=== PATIENT | female | born 2000 | race African-American/Black ===

== ENCOUNTER 2025-04-06 13:53 | Emergency (ER) | payer OTHER, SELFPAY ==
[2025-04-06] VITALS (10 sets, daily range): BP systolic 115–136; BP diastolic 72–80; PULSE 60–81; RESP 12–24; TEMP 36.8; O2SAT 97–100
--- NOTE | ~2025-04-06 | XR_ITS ---
EXAMINATION: XR chest 1V portable DATE: 04/06/2025 14:26 INDICATION: Stroke with left facial droop and recent vaginal delivery. TECHNIQUE: frontal view of the chest was obtained. COMPARISON: None FINDINGS: The lungs are clear with no focal airspace opacities, pulmonary edema, pleural effusion or pneumothor ax. The cardiomediastinal silhouette is normal. Visualized bones and soft tissues are unremarkable. IMPRESSION: 1. Normal chest radiograph. Reviewed, dictated and finalized at location A. IMPRESSION: 1. Normal chest radiograph.
--- NOTE | ~2025-04-06 | CT_ITS ---
EXAMINATION: CT brain wo con DATE: 04/06/2025 13:58 INDICATION: Left-sided weakness and facial droop. TECHNIQUE: Computed tomography (CT) of the head was performed without intravenous contrast. Sagittal and coronal reconstructions were performed. The mA was adjusted according to patient size. Iterative reconstruction technique was employed. The dose-length product was 529.67 mGy-cm. COMPARISON: None FINDINGS: No acute intracranial hemorrhage, acute infarction or abnormal extra axial fluid collection. Ventricl es are normal and symmetric. No mass/mass effect. The orbits, paranasal sinuses and mastoid air cells are normal. IMPRESSION: 1. Normal brain. Reviewed, dictated and finalized at location A. IMPRESSION: 1. Normal brain.
--- NOTE | ~2025-04-06 | CT_ITS ---
EXAMINATION: CTA BRAIN/CAROTID DATE: 04/06/2025 15:03 INDICATION: Right-sided facial droop and weakness post recent vaginal delivery TECHNIQUE: Computed tomographic angiography (CTA) of the head and neck was performed with 100 mL Omni paque-350 intravenous contrast. Multiplanar reconstructions and maximum intensity projection 3D-recon structions of the carotid arteries and of the intracranial arteries were created by the technologist on a separate workstation. Automated exposure control and iterative reconstruction technique were emp loyed.The dose-length product was 978.33 mGy-cm. COMPARISON: Head CT dated 04/06/2025 FINDINGS: Carotid arteries: Visualized portion of the aortic arch and great vessels arising from the arch are normal in caliber w ith no evident atherosclerosis or dissection. There is no evident atherosclerotic plaque with 0% sten osis of the right and left carotid bulbs relative to normal distal artery lumen diameter (NASCET crit eria). Visualized upper lungs are clear. Cervical soft tissues are unremarkable. Cervical spine is un remarkable. Mucous retention cyst in the left maxillary sinus. Intracranial arteries Vertebral arteries are codominant. There is no hemodynamically significant stenosis in the vertebral, basilar and internal carotid arteries. Both A1 and P1 segments are patent. There is also a patent an terior communicating artery. There are no aneurysms identified. Cerebral arterial arborization appea rs symmetric. No cerebral venous thrombosis. No abnormally enhancing brain lesions. IMPRESSION: 1. No atherosclerotic plaque with 0% stenosis of the right and left carotid bulbs relative to normal distal artery lumen diameter (NASCET criteria). 2. Normal cerebral CT angiogram with no evidence stenosis, aneurysm or thrombosis. Reviewed, dictated and finalized at location A. IMPRESSION: 1. No atherosclerotic plaque with 0% stenosis of the right and left carotid bul bs relative to normal distal artery lumen diameter (NASCET criteria). 2. Normal cerebral CT angiogram with no evidence stenosis, aneurysm or thrombos is.
--- NOTE | 2025-04-06 13:50 | ECG_ITS ---
Test Date: 2025-04-06 14:11:25 Measurements Intervals [place] Rate: 76 P: 49 [place]: 154 QRS: 15 QRSD: 75 T: 18 QT: 356 QTc: 402 Interpretive Statements SINUS RHYTHM WITH MARKED SINUS ARRHYTHMIA Poor R wave progression No previous ECG available for comparison Electronically Signed On 04-07-2025 17:04:09 CDT by Marc Rodriguez M.D.
--- NOTE | 2025-04-06 14:00 | ED_ITS ---
HPI - Neuro Symptoms/Deficit General Chief Complaint: Suspected CVA Stated Complaint: r/o CVA History of Present Illness HPI Narrative: Pt presents with onset of left facial droop 50 minutes ago and numbness in face. Pt denies PORTER or weakness in arms or legs. Pt is diabetic and blood sugars have been ok. Pt had some blurred vison in left eye for about 10 minutes and that has resolved. Related Data Home Medications ?Medication ?Instructions ?Recorded ?Confirmed ?Last Taken ?Type vit no.133-ferrous 1 tablet PO DAILY 10/29/19 Unknown History fumarate 28 mg-folic acid 800 mcg tablet () Allergies Allergy/AdvReac Type Severity Reaction Status Date / Time metformin AdvReac Diarrhea Verified 04/06/25 14:18 Review of Systems 2 Review of Systems: All systems reviewed & are unremarkable except as noted in HPI and below PMFSH Past Medical History Medical History (Updated 04/06/25 @ 17:21 by Vero Smallwood III, DO) No significant past medical history Surgical History Surgical History No significant past surgical history Social History Social History Smoking status: Unknown if ever smoked Gender identity (if verbalized by the patient): Female Exam 2 Const: General: cooperative, healthy appearing and no acute distress O rientation/consciousness: patient oriented x3 Limitations: no limitations Eyes: General: appearance normal, both eyes and all related structures V isual Barboza: normal visual barboza by confrontation EOM: EOMs intact bilaterally Neck: Neck: normal visual inspection and full ROM Resp: Effort & Inspection: normal respiratory effort and able to speak in complete sentences Auscultation: clear to auscultation bilaterally Cardio: Rate: regular rate Rhythm: regular rhythm GI: Inspection: normal to inspection GI Palp: No abdominal tenderness Skin: General skin exam: normal color and no rashes or lesions noted Neuro: General: patient oriented x3, moves all extremities and no meningeal signs Speech: normal speech Motor exam (neuro): 5/5 motor strength present throughout, Pronator motor function not present, No tremor noted, No asterixis and Motor fasciculations not present Other: facial droop noted on left and forehead appears spared on brief exam prior to CT. Extrem: General: normal to inspection and full ROM Course Vital Signs Vital signs: Vital Signs Temperature 98.2 F 04/06/25 13:57 Pulse Rate 76 04/06/25 13:57 Respiratory Rate 20 04/06/25 13:57 Blood Pressure 136/72 04/06/25 13:57 Pulse Oximetry 100 04/06/25 13:57 Oxygen Delivery Room Air 04/06/25 13:57 Temperature 98.2 F 04/06/25 13:57 Pulse Rate 79 04/06/25 18:08 Respiratory Rate 18 04/06/25 18:08 Blood Pressure 115/75 04/06/25 18:08 Pulse Oximetry 100 04/06/25 18:08 Oxygen Delivery Room Air 04/06/25 14:11 MDM - Neuro Symptoms/Deficit MDM Narrative Medical decision making narrative: Pt had recent delivery last week and had some blurred vison around 1030 which resolved but then developed left facial numbness and droop sparing the forehead at 1300 that has persisted. Stroke work up initiated. CT brain neg for bleed. ekg ok. Discussed with Dr Strauss at [facility] at 1425. said is pretty mild but up to my clinical judgement on tpa. given mild nature of symptoms think the risk would be great and possiblility of other causes like dissection or venous sinus thrombosis or amniotic fluid embolism etc need to be ruled out. discussed with pt and agrees and does not want tpa at this point. will order cta of head and neck. cta unremarkable. discussed with Dr Ocampo and said not comfortable accepting this patient given her age and recent and delivery. discussed with Dr Jacobs again at [facility] and he will accept transfer. awaiting bed. Lab Data 04/06/25 14:02 04/06/25 14:02 Labs: Lab Results 04/06/25 04/06/25 Range/Units 14:01 14:02 WBC 9.1 (4.5-10.0) K/mm3 RBC 4.95 (4.2-5.4) M/mm3 Hgb 11.0 L (12.0-15.0) g/dL Hct 36.0 L (37.0-47.0) % MCV 72.7 L (80-100) fl MCH 22.2 L (26-34) pg MCHC 30.6 L (32-36) g/dl RDW 19.4 H (11.5-14.5) % Plt Count 377 H (150-375) k/mm3 MPV 9.4 (7.4-10.4) fl Immature Gran % (Auto) 1.5 H (0-0.5) % Neut % (Auto) 61.9 (45.5-73.1) % Lymph % (Auto) 25.0 (18.3-44.2) % [place] % (Auto) 7.1 (2.6-8.5) % Eos % (Auto) 4.1 (0-4.4) % Baso % (Auto) 0.4 (0.2-1.2) % Lymph # (Auto) 2.26 (0.9-3.2) K/mm3 Victoria # (Auto) 0.6 (0.1-0.6) K/mm3 Eos # (Auto) 0.4 H (0-0.3) K/mm3 Baso # (Auto) 0.0 (0.0-0.1) K/mm3 Abs Immat Gran (auto) 0.14 H (0.00-0.031) K/mm3 Absolute Neuts (auto) 5.6 (1.3-6.7) K/mm3 Absolute Nucleated RBC 0.020 H (0.0-0.012) K/mm3 Band Neutrophils % Not Reportable Nucleated RBC % 0.2 (0.0-0.2) % Platelet Estimate Increased (Adequate) Large Platelets Present Giant Platelets Present Hypochromasia 1+ Anisocytosis 1+ Schistocytes None seen PT 13.1 (11.1-14.7) Seconds INR 1.0 APTT 26.0 (22.3-36.8) Seconds Sodium 142 (137-145) mmol/L Potassium 3.7 (3.4-5.0) mmol/L Chloride 109 H (98-107) mmol/L Carbon Dioxide 23 (22-30) mmol/L Anion Gap 10 (4-12) mmol/L BUN 7 (7-17) mg/dL Creatinine 0.80 (0.7-1.0) mg/dL Estim Creat Clear Calc Not Reportable Estimated GFR > 60 (59 - ) Glucose 101 (65-110) mg/dL Calcium 8.8 (8.4-10.2) mg/dL Total Bilirubin 0.5 (0.2-1.3) mg/dL AST 29 (14-36) U/L ALT 21 (6-35) U/L Alkaline Phosphatase 135 H (38-126) U/L Troponin I < 0.012 (0.000-0.034) ng/mL Total Protein 7.0 (6.3-8.2) g/dL Albumin 3.7 (3.5-5.1) g/dL Discharge Plan Discharge Clinical Impression: Weakness on left side of face Patient Disposition: Acute Care Hospital Condition: Guarded Prognosis Patient Language: Slovak Prescriptions: No Action 28-800 mg-mcg Tablet 1 tablet PO DAILY amoxicillin 875 mg tablet 875 mg PO Q12H Qty: 20 0RF Follow-up/Referrals: PHYSICIAN,FIELD EXAMINER [Non-Staff] - Quality Stroke Scale Stroke Scale 1: 1a Level of consciousness: alert-0 1b Level of consciousness questions: answers both correctly-0 1c Level of consciousness commands: obeys both correctly-0 2 Best gaze: normal-0 3 Visual: no visual loss-0 4 Facial palsy: partial paralysis-2 5a Motor: left arm: no drift-0 5b Motor: right arm: no drift-0 6a Motor: left leg: no drift-0 6b Motor: right leg: no drift-0 7 Limb ataxia: absent-0 8 Sensory: pinprick less sharp-1 9 Best language: no aphasia-0 10 Dysarthria: normal-0 11 Extinction and inattention: no abnormality-0 Level:: 3
[2025-04-06 14:15] LABS: Basophils Percent Auto 0.4 % (0.2-1.2); Eosinophils Absolute Auto 0.4 K/mm3 (0-0.3); Eosinophils Percent Auto 4.1 % (0-4.4); Immature Granulocyte Absolute 0.14 K/mm3 (0.00-0.031); Immature Granulocyte Percent A 1.5 % (0-0.5); Lymphocytes Absolute Auto 2.26 K/mm3 (0.9-3.2); Mean Corpuscular HGB Conc 30.6 g/dl (32-36); Mean Corpuscular Hemoglobin 22.2 pg (26-34); Mean Corpuscular Volume 72.7 fl (80-100); Mean Platelet Volume 9.4 fl (7.4-10.4); Monocytes Absolute Auto 0.6 K/mm3 (0.1-0.6); Monocytes Percent Auto 7.1 % (2.6-8.5); Neutrophils Absolute Auto 5.6 K/mm3 (1.3-6.7); Neutrophils Percent Auto 61.9 % (45.5-73.1); Nucleated Red Blood Cells Perc 0.2 % (0.0-0.2); Platelet Count Result 377 k/mm3 (150-375); Red Blood Count 4.95 M/mm3 (4.2-5.4); Red Cell Distribution Width 19.4 % (11.5-14.5); White Blood Count 9.1 K/mm3 (4.5-10.0)
--- OUTSIDE RECORDS SUMMARY | 2025-04-06 14:21 | XMS_ITS | Referral Summary ---
Author Organization [facility] [place] [facility] [facility] Address [address] [place] [address] Care Team Providers Care Shell Press Operator Name Role Phone Mayco Harmon Primary Care Provider [phone] Marisol Aguirre CNM Unavailable [phone] Encounters Date Type Department Care Team Description 04/06/2025 Telephone [facility] at [place] [address] [place] [phone] Mayco Harmon PA Symptom Based Call 03/29/2025 8:18 PM CDT - 04/01/2025 1:04 PM CDT Hospital Encounter [address] [phone] Bhaskar Gonzalez MD Steiner, Holly Laura, MD Encounter for induction of labor [Z34.90] (Primary Dx); Pre-existing type 2 diabetes mellitus during in third trimester [O24.113]; Supervision of high-risk , third trimester [O09.93]; Severe obesity due to excess calories affecting in third trimester (HCC) [O99.213, E66.01] Discharge Disposition: Discharge to home or self care 03/30/2025 7:50 AM CDT Anesthesia Event [address] [phone] Pal Abebe MD Maberry, Kristin R., SEE WHEELER 03/26/2025 9:45 AM CDT Procedure visit [facility] Obstetrical Gynecology [address] [place] [phone] 03/23/2025 12:45 PM CDT Procedure visit [facility] Obstetrical Gynecology [address] [place] [address] [phone] Brionna Monsalve MD Pre-existing type 2 diabetes mellitus during in third trimester (Primary Dx) 03/22/2025 2:09 PM CDT - 03/22/2025 11:59 PM CDT Hospital Encounter [address] [place] [address] Discharge Disposition: Discharge to home or self care 03/20/2025 9:00 AM CDT Procedure visit [facility] Obstetrical Gynecology [address] [place] [address] [phone] Pre-existing type 2 diabetes mellitus during in third trimester (Primary Dx); Obesity affecting in first trimester, unspecified obesity type; History of iron deficiency anemia; BMI 40; Supervision of high-risk , third trimester 03/16/2025 10:30 AM CDT Clinical Support [facility] Obstetrics and Gynecology [address] [place] [address] [place] [phone] Pre-existing type 2 diabetes mellitus during in third trimester (Primary Dx); BMI 40; Supervision of high-risk , third trimester 03/16/2025 9:45 AM CDT - 03/16/2025 11:59 PM CDT Hospital Encounter [facility] [address] [place] [phone] Obesity affecting in first trimester, unspecified obesity type; Pre-existing type 2 diabetes mellitus during in second trimester Discharge Disposition: Discharge to home or self care 03/16/2025 10:45 AM CDT Office Visit [facility] Maternal- Medicine [address] [place] [address] [phone] Pre-existing type 2 diabetes mellitus during in third trimester (Primary Dx); BMI 40; Asthma affecting in third trimester; Sickle cell trait; Supervision of high-risk , third trimester 03/10/2025 Results Follow-Up [facility] Obstetrical Gynecology [address] [place] [phone] Bhaskar Gonzalez MD Group B streptococcus PCR Vaginal/Rectal 03/09/2025 2:40 PM CDT Pre-Admission Testing [facility] Pre Admit Testing [facility] [place] [address] Obesity affecting in third trimester, unspecified obesity type 03/09/2025 1:30 PM CDT Procedure visit [facility] Obstetrical Gynecology [address] [place] [phone] Pre-existing type 2 diabetes mellitus during in third trimester (Primary Dx) 03/07/2025 11:06 AM CDT - 03/07/2025 11:59 PM CDT Hospital Encounter [facility] Medical Office Building [address] [place] [address] Encounter for related examination in third trimester Discharge Disposition: Discharge to home or self care 03/07/2025 9:15 AM CDT Procedure visit [facility] Obstetrical Gynecology [address] [place] [address] [phone] Bhaskar Gonzalez MD Encounter for related examination in third trimester (Primary Dx); Pre-existing type 2 diabetes mellitus during in third trimester; Severe obesity due to excess calories affecting in third trimester (HCC) 03/02/2025 1:00 PM CDT Procedure visit [facility] Obstetrical Gynecology [address] [place] [address] [phone] Pre-existing type 2 diabetes mellitus during in second trimester (Primary Dx) 02/28/2025 11:15 AM CDT Ancillary Procedure [facility] Obstetrical Gynecology [address] [place] [address] [phone] Type 2 diabetes mellitus without complication, without long-term current use of insulin (HCC) 02/28/2025 11:45 AM CDT Procedure visit [facility] Obstetrical Gynecology [address] [place] [phone] Jax Carver MD Pre-existing type 2 diabetes mellitus during in second trimester (Primary Dx); Supervision of high-risk , second trimester; Obesity affecting in first trimester, unspecified obesity type 02/27/2025 9:00 AM CDT - 02/27/2025 11:59 PM CDT Hospital Encounter [address] [address] Discharge Disposition: Discharge to home or self care 02/27/2025 Orders Only [facility] Pre Admit Testing [address] [place] [phone] Ana Hernandez RN Obesity affecting in third trimester, unspecified obesity type (Primary Dx) 02/25/2025 5:50 PM CDT - 02/25/2025 8:13 PM CDT Emergency [facility] OB Emergency Department [address] [place] [phone] Jax Carver MD Decreased movements in third trimester, single or unspecified fetus (Primary Dx); 34 weeks gestation of ; uterine contractions in third trimester, antepartum Discharge Disposition: Discharge to home or self care 02/23/2025 3:54 PM CDT - 02/23/2025 11:59 PM CDT Hospital Encounter [facility] Lab [address] [place] [phone] Sickle cell trait Discharge Disposition: Discharge to home or self care 02/23/2025 Orders Only [facility] Obstetrical Gynecology [address] [place] [phone] Jax Carver MD Type 2 diabetes mellitus without complication, without long-term current use of insulin (HCC) (Primary Dx) 02/23/2025 12:45 PM CDT Procedure visit [facility] Obstetrical Gynecology [address] [place] [phone] Alla Oh MD Sickle cell trait (Primary Dx); Pre-existing type 2 diabetes mellitus during in second trimester; Third trimester 02/20/2025 10:00 AM CDT Procedure visit [facility] Obstetrical Gynecology [address] [place] [address] [place] [address] [phone] Pre-existing type 2 diabetes mellitus during in second trimester (Primary Dx) 02/16/2025 9:58 AM CDT - 02/16/2025 11:59 PM CDT Hospital Encounter [facility] [address] [facility] [address] [place], [place] [phone] Obesity affecting in first trimester, unspecified obesity type; Pre-existing type 2 diabetes mellitus during in second trimester Discharge Disposition: Discharge to home or self care 02/16/2025 10:45 AM CDT Office Visit [facility] Maternal- Medicine [facility] [address] [facility] Medical Office Building [address] [place] [address] Pre-existing type 2 diabetes mellitus during in second trimester (Primary Dx); Sickle cell trait; Cyst of ovary, left; Asthma affecting in second trimester; Obesity affecting in first trimester, unspecified obesity type 02/13/2025 9:00 AM CDT Procedure visit [facility] Obstetrical Gynecology [address] [place] [address] [place] [address] [phone] Pre-existing type 2 diabetes mellitus during in second trimester (Primary Dx) 02/09/2025 8:15 AM CDT Procedure visit [facility] Obstetrical Gynecology [address] [place] [address] [place] [address] [phone] Jax Carver MD Pre-existing type 2 diabetes mellitus during in second trimester (Primary Dx); Supervision of high-risk , second trimester; Sickle cell trait; Obesity affecting in first trimester, unspecified obesity type; History of iron deficiency anemia 02/06/2025 10:00 AM CDT Procedure visit [facility] Obstetrical Gynecology [address] [place] [address] [place] [address] [phone] Pre-existing type 2 diabetes mellitus during in second trimester (Primary Dx) 01/26/2025 1:30 PM CDT Office Visit [facility] Obstetrical Gynecology [address] [place] [address] [place] [phone] Marisol Aguirre CNM 30 weeks gestation of (Primary Dx) 01/19/2025 11:15 AM DROP HAMMER PILE DRIVER OPERATOR Office Visit [facility] Maternal- Medicine [facility] [address] [facility] Medical Office Building [address] [place] [phone] Pre-existing type 2 diabetes mellitus during in second trimester (Primary Dx); Obesity affecting in first trimester, unspecified obesity type; Supervision of high-risk , second trimester 01/19/2025 10:00 AM DROP HAMMER PILE DRIVER OPERATOR - 01/19/2025 11:59 PM DROP HAMMER PILE DRIVER OPERATOR Hospital Encounter [facility] [address] [facility] [address] [place] [phone] Obesity affecting in first trimester, unspecified obesity type; Pre-existing type 2 diabetes mellitus during in second trimester Discharge Disposition: Discharge to home or self care 01/09/2025 Results Follow-Up [facility] Obstetrical Gynecology [address] [place] [phone] Alla Oh MD CBC without differential, RPR Blood, HIV 1/2 Antibody plus p24 Antigen Blood 01/09/2025 8:55 AM DROP HAMMER PILE DRIVER OPERATOR Lab [facility] Medical Office Building [address] [place] [phone] Third trimester 01/09/2025 9:30 AM DROP HAMMER PILE DRIVER OPERATOR Office Visit [facility] Obstetrical Gynecology [address] [place] [phone] Bhaskar Gonzalez MD Encounter for related examination in third trimester (Primary Dx) from Last 3 Months Allergies Active Allergy Reactions Criticality Noted Date Comments Metformin Diarrhea Low 01/20/2024 Medications albuterol HFA (PROVENTIL HFA,VENTOLIN HFA,PROAIR HFA) 90 mcg/actuation inhaler Inhale 2 puffs every 6 (six) hours as needed for wheezing or shortness of breath Active vit 98-[id number]-[id number]-dha 27mg iron- 800 mcg-250 mg capsule Take by mouth Active ferrous sulfate 325 mg (65 mg of elemental iron) tabletIndications :Iron Deficiency Anemia Take 1 tablet (325 mg total) by mouth daily with breakfast 30 tablet 11 024 2024 Active aspirin 81 mg enteric coated tablet Take 1 tablet (81 mg total) by mouth daily 30 tablet 11 025 2025 Active ondansetron ODT (ZOFRAN-ODT) 4 mg disintegrating tablet Take 1 tablet (4 mg total) by mouth every 8 (eight) hours as needed for nausea or vomiting 20 tablet Active ferrous sulfate 325 mg (65 mg of elemental iron) tabletIndications :Iron Deficiency Anemia Take 1 tablet (325 mg total) by mouth daily 30 tablet 025 2025 Active benzocaine-mentho L (DERMOPLAST) 20-0.5 % aerosolIndication s:Minor Skin Wound Pain Apply 1 Application (1 spray total) topically as needed for other (perianal area for pain) 56 g Active acetaminophen (TYLENOL) 325 mg tablet Take 2 tablets (650 mg total) by mouth every 6 (six) hours as needed for pain 30 tablet Active docusate sodium (COLACE) 100 mg capsuleIndication s:constipation,St ool Softener Take 1 capsule (100 mg total) by mouth 2 (two) times a day 60 capsule Active ibuprofen (ADVIL,MOTRIN) 600 mg tabletIndications :Cramps Take 1 tablet (600 mg total) by mouth every 6 (six) hours as needed for pain 40 tablet 025 Active acetaminophen (TYLENOL) 325 mg tablet Take 2 tablets (650 mg total) by mouth every 6 (six) hours as needed for pain 30 tablet 025 2024 Discontinued docusate sodium (COLACE) 100 mg capsuleIndication s:constipation,St ool Softener Take 1 capsule (100 mg total) by mouth 2 (two) times a day 60 capsule 025 2024 Discontinued ibuprofen (ADVIL,MOTRIN) 600 mg tabletIndications :Cramps Take 1 tablet (600 mg total) by mouth every 6 (six) hours as needed for pain 40 tablet 025 2024 Discontinued Active Problems Problem Noted Date Diagnosed Date Encounter for induction of labor 03/29/2025 Overview (03/30/2025): 03/29/2025, 21:30 (Lisa): 24-year-old admitted at 39 weeks and 1 day for induction of labor for type 2 diabetes. FHT category 1 Cervix 1.5/50/-3 Contractions every 5-10 minutes, felt only has mild Will start with Cytotec 25 mcg vaginally, and then increase to 50 mcg vaginally every 4 hours if she still meets criteria 03/30/2025, 0710 (ROMEO): VSS, AF FHT Cat 1 S/p misoprostol 25 mcg x 1 SVE and membrane sweep with consent: 50/-2, soft, posterior Pitocin infusing at 2 mu/hr - titrate per protocol Pain management per pt wishes - desires epidural AROM once comfortable with epidural Continue IOL 03/30/2025, 0900 (JF): VSS, AF FHT Cat 2 - VD after epidural placement, resolved with repositioning Comfortable with epidural SVE and AROM with consent: 50/-2, clear fluid IUPC placed with consent Pitocin infusing at 2 mu/hr - continue per protocol 03/30/2025 1109 (CZ) VSS, afebrile FHT cat 2 - recurrent variable decels. FSE placed with patient consent. SVE 6.5/100/-1 Pitocin @4 mu/hr - discontinued due to tracing Plan to restart if needed for spacing contractions or inadequate MVU's Anesthesia to bedside for epidural bolus. Asthma affecting in third trimester Overview (03/16/2025): History - Severity classification: mild intermittent - Previously counseled - Current regimen: albuterol PRN Recommendations [] Monitor symptoms every visit Assessment & Plan (03/16/2025 11:33 AM CDT): Reports asthma symptoms are well controlled. - Current regimen: albuterol PRN Recommendations [] Monitor symptoms every visit Sickle cell trait 10/02/2024 Overview (03/16/2025): History Jourdan has a history of sickle cell trait. Discussed risk of inheritance in fetus. Reports FOB negative for trait. Recommendations [x] Urine culture every trimester [x] 1st trimester [x] 2nd trimester [x] 3rd trimester - 02/23/25 Assessment & Plan (03/16/2025 11:30 AM CDT): Jourdan has a history of sickle cell trait. Discussed risk of inheritance in fetus. Reports FOB negative for trait. Recommendations [x] Urine culture every trimester [x] 1st trimester [x] 2nd trimester [x] 3rd trimester - 02/23/25 Assessment & Plan (01/20/2025 12:45 PM DROP HAMMER PILE DRIVER OPERATOR): Jourdan has a history of sickle cell trait. Discussed risk of inheritance in fetus. Reports FOB negative for trait. Recommend urine culture every trimester. Plan: [] Follow-up records from [facility] [] Urine culture every trimester [x] 1st trimester [x] 2nd trimester [] 3rd trimester Cyst of ovary, left 10/02/2024 Overview (03/15/2025): 10/02/24 2 cm, simiple, ORADS-2 Recommendations - Continue to monitor on follow-up ultrasounds Pre-existing type 2 diabetes mellitus during in third trimester 09/18/2024 Overview (03/30/2025): History & Counselind Diagnosed age 24 History of DKA? no Last hemoglobin A1C: 6.6% on 09/14/24 Pre- regimen: none (dx this ) Pre- weight: 97 kg Previously counseled Recommendations - Current regimen: 03/26/2025- no changes Diet control Encouraged testing 4 times per day Early GCT 222, A1c 6.6 MFM co-management Serial Donato: (3/7) 45%ile, (4/4) 34%, (5/2) EFW 69%, abdominal circumference 91% Twice weekly testing 03/29/2025, 21:30 (Lisa): Glucose 90 Continue every 4 hours during cervical ripening, then increase frequency 03/29/2025, 0710 (ROEMO): BG wnl Accu checks q 2 hrs until active then hourly Assessment & Plan (03/16/2025 11:32 AM CDT): Review of glycemic control notable for fasting elevations the last few days, however overall very well controlled. No recommended changes at this point in , continue diet control. Given diet control in and that she does not tolerate metformin, recommend diet control . Recommendations - Current regimen: 03/16/2025 Diet control Encouraged testing 4 times per day Physician adjusting insulin dosage: MFM [] Diabetes education referred, encouraged she schedule [x] Recommend weekly review of BG/insulin data to adjust insulin dosing - Sathish MFM to do via [facility] [x] Glucagon prescribed - if medication, no currently indicated [x] Referral to ophthalmology for comprehensive eye exam - has had exam in past year [x] Baseline CMP, UPC - wnl [x] A1c qTrimester - last 5.7% (11/2024) [x] ASA starting at 12 weeks gestation ordered [] Baseline EKG - not done, unlikely to be of benefit at this time [x] Specialized anatomy [x] echocardiogram - wnl [x] Serial growth scans starting at 24 weeks - completed 03/16/25, AGA [x] Twice weekly testing starting at 32 weeks pending medications - not indicated for diet control (will continue weekly for BMI) [x] Delivery at [id number] ([id number] with vascular complications or poorly controlled) - with primary OB Assessment & Plan (01/20/2025 12:44 PM DROP HAMMER PILE DRIVER OPERATOR): History Diagnosed age 24 History of DKA? no Last hemoglobin A1C: 6.6% on 09/14/24 Pre- regimen: none (dx this ) Pre- weight: 97 kg Previously counseled Current regimen: 01/19/2025- no changes - encouraged after dinner values be taken consistently Diet control Encouraged testing 4 times per day Repeat growth in 4 weeks Assessment & Plan (11/24/2024 11:38 AM DROP HAMMER PILE DRIVER OPERATOR): Reports bs well controlled at home. Continue without meds. Assessment & Plan (11/17/2024 12:13 PM DROP HAMMER PILE DRIVER OPERATOR): Chronic condition stable improved A1c 5.7 today. Patient does have a appointment with Endocrinology she is involved with high-risk . Continue with dietary modifications currently not on medication. BMI 40 09/18/2024 Overview (03/16/2025): History BMI: 44, previously counseled Recommendations [x] Early screening for overt diabetes- T2DM [x] Specialized anatomy ultrasound [x] Serial growth ultrasounds q4 weeks starting at 24 weeks - completed 03/16/2025, AGA [] Weekly testing starting at 34 weeks given BMI of 40+ - ongoing with primary OB Assessment & Plan (03/16/2025 11:33 AM CDT): BPP 6/, NST reactive for complete score of 06/24. Reassuring. Recommendations [x] Early screening for overt diabetes- T2DM [x] Specialized anatomy ultrasound [x] Serial growth ultrasounds q4 weeks starting at 24 weeks - completed 03/16/2025, AGA [] Weekly testing starting at 34 weeks given BMI of 40+ - ongoing with primary OB Assessment & Plan (01/20/2025 12:44 PM DROP HAMMER PILE DRIVER OPERATOR): BMI: 44, previously counseled Plan [x] Early screening for overt diabetes- T2DM [x] Specialized anatomy ultrasound [] Serial growth ultrasounds q4 weeks starting at 24 weeks- ongoing [] Weekly testing starting at 34 weeks given BMI of 40+ History of iron deficiency anemia 09/18/2024 Assessment & Plan (11/17/2024 12:13 PM DROP HAMMER PILE DRIVER OPERATOR): Chronic stable well corrected with use of iron continue supplement. Supervision of high-risk , third trimes ter 09/18/2024 Overview (03/29/2025): EDC by LMP = 8 week US O+/I/-/-, HIV and RPR NR Genetics: NIPT low risk 09/14 Anatomy: (11/24) with MFM, complete, posterior placenta, EFW 41% 3rd trim 10.8/33.9, NR/NR GBS: negative 03/07 Social Barriers: none Mode of feeding: breast/pumping, encouraged breast feeding classes Method of contraception: undecided Delivery Planning: IOL 04/01 PM Pain management: epidural Support: mom, partner, partner's mother MD Asthma: Albuterol inhaler prn Sickle trait: Urine Cx q trimester, 3T negative 02/23 Morbid Obesity (BMI 41): weekly testing at 34 weeks, s/p anesthesia consult 03/09 T2DM Assessment & Plan (03/16/2025 11:35 AM CDT): Patient of Dr. Gonzalez. Reviewed 06/24 total for combined NST/BPP today which is considered reassuring. Plans for delivery with Dr. Gonzalez's group. No further MFM visits are indicated. SVE performed - closed/long/high. Gastroesophageal reflux disease 07/26/2024 Assessment & Plan (07/26/2024 10:22 AM CDT): Chronic now well-controlled Restart pantoprazole Order B12 Assessment & Plan (04/17/2024 9:06 AM CDT): Chronic stable well controlled Continue pantoprazole. Assessment & Plan (01/14/2024 10:55 AM DROP HAMMER PILE DRIVER OPERATOR): Chronic stable well controlled Continue pantoprazole. Assessment & Plan (10/27/2023 3:51 PM DROP HAMMER PILE DRIVER OPERATOR): Chronic stable well controlled Continue pantoprazole. Assessment & Plan (10/16/2022 8:23 AM DROP HAMMER PILE DRIVER OPERATOR): Chronic and stable Well controlled with protonix Continue And refill Assessment & Plan (04/20/2022 3:56 PM CDT): Chronic and stable with pantoprazole Assessment & Plan (03/19/2022 4:22 PM CDT): Chronic condition Well controlled continue pantoprazole. Assessment & Plan (02/09/2022 4:01 PM CDT): Chronic condition Stable and well controlled Continue with protonix Assessment & Plan (08/11/2021 3:21 PM CDT): Chronic condition stable on protonix Refill medications Assessment & Plan (02/03/2021 2:55 PM CDT): Patient is a chronic condition well-controlled however she has been taking Protonix b.i.d.. At this point will reduce her to once a day and monitor for recurrence of symptoms. Assessment & Plan (11/04/2020 5:03 PM DROP HAMMER PILE DRIVER OPERATOR): Well controlled on current regimen, no rx changes needed. Continue lifestyle modifications Assessment & Plan (08/05/2020 3:08 PM CDT): Start prevacid Obesity 02/09/2022 Overview (02/09/2022): Start weight 211 Goal weight 170 Assessment & Plan (04/17/2024 9:09 AM CDT): Chronic uncontrolled, reduce processed carb/starch, exercise as feliciano, whole foods Assessment & Plan (09/08/2023 4:20 PM CDT): Chronic not at goal Start adipex Assessment & Plan (03/19/2022 4:22 PM CDT): Chronic condition not at goal Start phentermine Work with 1200 calorie diet more natural whole foods. Assessment & Plan (02/09/2022 4:02 PM CDT): Chronic condition Not at goal Start adipex Start 1200cal diet Mild persistent asthma without complication 12/17 Overview (01/14/2024): Last Assessment & Plan: Since her last visit, Jourdan has been doing well and overall asymptomatic. Controller therapies have been well tolerated with minimal use of albuterol. Her PFTs show some obstruction of her lower airways, but have been over all stable since her last visit. We recommend that Jourdan continues on her current regimen and get the flu shot in the fall. Follow up in pulmonology clinic in 6 months. Last Assessment & Plan: Condition: stable Reviewed trigger avoidance and reviewed proper use of inhalers and rescue medications. Reviewed concerning signs/symptoms and ER precautions. Follow up in: three months with PCP Assessment & Plan (11/17/2024 12:13 PM DROP HAMMER PILE DRIVER OPERATOR): Chronic stable well-controlled no recent exacerbation Continue albuterol p.r.n. for exacerbation. Assessment & Plan (04/17/2024 9:07 AM CDT): Chronic stable well controlled Continue pantoprazole Maintain low acidic diet Resolved Problems Problem Noted Date Diagnosed Date Resolved Date Obesity affecting , antepartum 08/24/2024 10/02/2024 DM type 2 with diabetic dyslipidemia 09/08/2023 10/02/2024 Assessment & Plan (07/26/2024 10:22 AM CDT): Chronic stable Continue metformin Assessment & Plan (04/17/2024 9:05 AM CDT): Chronic and not at goal Continue ozempic Order A1c in 3mo Assessment & Plan (01/14/2024 10:55 AM DROP HAMMER PILE DRIVER OPERATOR): Chronic Stable New on metformin F/u in 3mo with a1c Assessment & Plan (10/27/2023 3:52 PM DROP HAMMER PILE DRIVER OPERATOR): Chronic condition not at goal Patient was unable to start Trulicity due to unsure of pharmacy benefits or where to obtain medication that. Work on getting Trulicity. Assessment & Plan (09/08/2023 4:20 PM CDT): Chronic condition Start trulicity Pure hypercholesterolemia 02/03/2021 Assessment & Plan (07/26/2024 10:22 AM CDT): Chronic condition Trying Conservative measure Order lipid panel Assessment & Plan (08/11/2021 3:22 PM CDT): Chronic condition Trying Conservative measure Order lipid panel Assessment & Plan (02/03/2021 2:55 PM CDT): Chronic condition will continue to monitor with labs at this time we encouraging make lifestyle changes. Will repeat in 6 months for Allergic rhinitis 08/05/2020 10/01/2024 Hypertrophy of nasal turbinates 08/05/2020 10/01/2024 Abnormal ultrasound 09/11/2019 Overview (01/14/2024): Dilated kidneys 6 - 7 mm on outside scan Idiopathic hypersomnia 04/16/201610/02 Overview (08/05/2020): Neg diag psg with a +MSLT 03/15/16 RDI 0.7 AHI: 0.7 Obstructive AHI:0 .6 Min 02 sat 94% MSLT shows idiopathic hypersomnia Slept 5 of 5 naps with avg sleep latency of 7.1 min Only 1 SOREM Assessment & Plan (11/04/2020 5:03 PM DROP HAMMER PILE DRIVER OPERATOR): Good control with Concerta. Primary snoring 04/16/2016 10/02/2024 Overview (01/14/2024): Neg diag psg with a +MSLT 03/15/16 RDI 0.7 AHI: 0.7 Obstructive AHI:0 .6 Min 02 sat 94% MSLT shows idiopathic hypersomnia Slept 5 of 5 naps with avg sleep latency of 7.1 min Only 1 SOREM Mild persistent asthma without complication 01/07/2016 10/02/2024 Overview (08/05/2020): Last Assessment & Plan: Since her last visit, Jourdan has been doing well and overall asymptomatic. Controller therapies have been well tolerated with minimal use of albuterol. Her PFTs show some obstruction of her lower airways, but have been over all stable since her last visit. We recommend that Jourdan continues on her current regimen and get the flu shot in the fall. Follow up in pulmonology clinic in 6 months. 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 Having more freqeunt complications. Start simbicort 160/4.5 Assessment & Plan (07/10/2021 8:02 AM CDT): Chronic condition refill duoneb nebulizer Failure to inhaler Assessment & Plan (11/04/2020 5:04 PM DROP HAMMER PILE DRIVER OPERATOR): Well controlled on current regimen, no rx changes needed. Continue lifestyle modifications Well controlled with rescue inhaler 1-2 uses per week. Assessment & Plan (08/05/2020 3:45 PM CDT): Well controlled on current regimen, no rx changes needed. Continue lifestyle modifications Patient advised to make us aware of exacerbations we will monitor. Narcolepsy 11/15/2015 10/02/2024 Assessment & Plan (04/20/2022 3:55 PM CDT): Chronic and uncontrolled New start nuvigil Assessment & Plan (08/05/2020 3:11 PM CDT): We will manage and prescribe methylphenidate ER with next refill Vocal cord dysfunction 10/09/201510/01 Overview (08/05/2020): Last Assessment & Plan: Speech therapy recommended breathing techniques before exercise and sports. We recommend that Jourdan continue these techniques before periods of activity. Immunizations Immunization Administration Dates Next Due DTaP 04/05/2004, 1,02/06/2000,11/10,1999 DTaP, Unspecified 04/05/2004, 1,02/06/2000,11/10,1999 HPV, Unspecified 07/07/2012,03/07/2012, 2 Hep A, Ped Unspecified 05/01/2002,11/03/2001 Hep A, Pediatric 05/12/2016 Hep B / HiB 1999,1999 Hep B Vaccine 03/10/2023 Hep B, Adolescent or Pediatric 06/07/2000,1998 Hep B, Unspecified 06/07/2000,1999, 999 HiB 10/21/2000, 0,02/06/2000,11/10,1999 IPV 04/05/2004, 1,1999,09/08 Influenza LAIV (Nasal) 08/24/2011 Influenza, Live, Intranasal, Quadrivalent 09/22/2014,09/29/2013 Influenza, Quadrivalent, Spl it, Intramuscular 11/17/2024(Deferred: Patient decision) Influenza, Quadrivalent, Spl it, Preservative Free, Intramuscular 01/14/2020,08/12/2018,09/01/2017,10/07,09/06/2015 Influenza, Split 11/16/2009,08/20/2008 Influenza, Unspecified 08/18/2023,2022(Deferred: Patient Refused),02/09/2022(Deferred: Patient Refused),09/22/2014,09/29/2013, 011,12/24/2007,11/12/2007 MMR 04/05/2004,10/21/2000 Meningococcal B, OMV (Bexsero) 08/19/2017,2016 Meningococcal MCV4, Unspecified 03/23/2011 Meningococcal MCV4P (Menactra) 05/12/2016 Pneumococcal Conjugate 7-Valent 03/04/2001,10/21 Tdap 01/09/2025,03/23/2011 Varicella 08/20/2008,04/01/2007,10/21/2000 Social History Tobacco Use Types Packs/Day Years Used Date Smoking Tobacco: Never Smokeless Tobacco: Never Tobacco Cessation:Counseling Given: Not Answered Alcohol Use Standard Drinks/Week Comments Never 0 (1 standard drink = 0.6 oz pur e alcohol) AUDIT-C Answer Date Recorded Q1: How often do you have a drink containing alcohol? Never 11/17/2024 Q2: How many drinks containi ng alcohol do you have on a typical day when you are drinking? Patient does not drink Q3: How often do you have si x or more drinks on one occasion? Never 11/17/2024 Overall Financial Resource Strain (CARDIA) Answe r Date Recorded How hard is it for you to pa y for the very basics like food, housing, medical care, and heating? Not very hard 03/29/2025 PHQ-2 Answer Date Recorded PHQ-2 Total Score (If total score is 3 or more points, staff should administer the PHQ-9) 0 03/29/2025 Hunger Vital Sign Answer Date Recorded Within the past 12 months, y ou worried that your food would run out before you got the money to buy more. Never true 03/29/20 25 Within the past 12 months, t he food you bought just didn't last and you didn't have money to get more. Never true 03/29/2025 PRAPARE - Transportation Answer Date Re corded In the past 12 months, has l ack of transportation kept you from medical appointments or from getting medications? No 03/15 In the past 12 months, has l ack of transportation kept you from meetings, work, or from getting things needed for daily living? No 03/29/2025 [place] Depression Scale Answer Date Recorded [place] Depression Scale Total 0 04/01/2025 The thought of harming myself has occurred to me . Never 04/01/2025 PHQ-9 Answer Date Recorded PHQ-9 Total Score 0 03/29/2025 Housing Stability Vital Sign Answer Jesus e Recorded In the last 12 months, was t here a time when you were not able to pay the mortgage or rent on time? No 03/29/2025 Number of Times Moved in the Last Year Not on fi le 03/29/2025 At any time in the past 12 m [facility], were you homeless or living in a retirement (including now)? No 03/29/2025 Personal Safety Answer Date Recorded Have you ever been in or are you currently in a harmful physical or emotional relationship or is someone making you feel afraid or unsafe? Denies 03/29/2025 Comments No Sex and Gender Information Value Date Recorded Sex Assigned at Not on file Legal Sex Female 7:01 PM DROP HAMMER PILE DRIVER OPERATOR Gender Identity Not on file Sexual Orientation Not on file Last Filed Vital Signs Vital Sign Reading Time Taken Comments Blood Pressure 115/59 04/01/2025 8:37 AM CDT Pulse 93 04/01/2025 8:37 AM CDT Temperature 36.9 C (98.4 F) 04/01/2025 8:37 AM CDT Respiratory Rate 16 04/01/2025 8:37 AM CDT Oxygen Saturation 99% 04/01/2025 8:37 AM CDT Inhaled Oxygen Concentration - - Weight 94.5 kg (208 lb 6.4 oz) 03/26/2025 9:53 A M CDT Height 152.4 cm (5') 03/26/2025 9:53 AM CDT Body Mass Index 40.7 03/26/2025 9:53 AM CDT Plan of Treatment Not on file Procedures Procedure Name Priority Date/Time Associated Diagnosis Comments GLUCOSE, FASTING Routine 03/31/2025 8:08 AM CDT CBC WITHOUT DIFFERENTIAL Routine 03/31/2025 8:08 AM CDT POCT GLUCOSE DEVICE Routine 03/31/2025 5 :36 AM CDT POCT GLUCOSE DEVICE Routine 03/30/2025 1 :26 PM CDT POCT GLUCOSE DEVICE Routine 03/30/2025 9 :25 AM CDT MO AN PROCEDURE PLACEHOLDER Routine 03/30/2025 8:19 AM CDT POCT GLUCOSE DEVICE Routine 03/30/2025 7 :28 AM CDT POCT GLUCOSE DEVICE Routine 03/30/2025 5 :34 AM CDT POCT GLUCOSE DEVICE Routine 03/30/2025 3 :32 AM CDT POCT GLUCOSE DEVICE Routine 03/30/2025 1 :38 AM CDT POCT GLUCOSE DEVICE Routine 03/29/2025 9 :21 PM CDT ANTIBODY SCREEN STAT 03/29/2025 8:57 PM CDT ABO/RH STAT 03/29/2025 8:57 PM CDT CBC WITHOUT DIFFERENTIAL STAT 03/29/2025 8:57 PM CDT TYPE AND SCREEN STAT 03/29/2025 8:57 PM CDT RPR STAT 03/29/2025 8:57 PM CDT NONSTRESS TEST Routine 03/16/2025 12:36 PM CDT Pre-existing type 2 diabetes mellitus during in third trimester BMI 40 Supervision of high-risk , third trimester US OB FOLLOW UP Schedule Routine, Read Routine (OP Routine) 03/16/2025 9:57 AM CDT Obesity affecting in first trimester, unspecified obesity type Pre-existing type 2 diabetes mellitus during in second trimester GROUP B STREPTOCOCCUS SCREEN PCR GEN LAB Routine 03/07/2025 9:18 AM CDT Encounter for related examination in third trimester US BIOPHYSICAL PROFILE WO TEST Schedule Routine, Read Routine (OP Routine) 02/28/2025 10:56 AM CDT Type 2 diabetes mellitus without complication, without long-term current use of insulin (HCC) URINE CULTURE Routine 02/23/2025 1:53 PM CDT Sickle cell trait US OB FOLLOW UP Schedule Routine, Read Routine (OP Routine) 02/16/2025 9:58 AM CDT Obesity affecting in first trimester, unspecified obesity type Pre-existing type 2 diabetes mellitus during in second trimester US OB FOLLOW UP Schedule Routine, Read Routine (OP Routine) 01/19/2025 10:23 AM DROP HAMMER PILE DRIVER OPERATOR Obesity affecting in first trimester, unspecified obesity type Pre-existing type 2 diabetes mellitus during in second trimester CBC WITHOUT DIFFERENTIAL Routine 01/09/2025 9:06 AM DROP HAMMER PILE DRIVER OPERATOR Third trimester HIV 1/2 ANTIBODY PLUS P24 ANTIGEN Routine 01/09/2025 9:06 AM DROP HAMMER PILE DRIVER OPERATOR Third trimester RPR Routine 01/09/2025 9:06 AM DROP HAMMER PILE DRIVER OPERATOR Third trimester HEMOGLOBIN A1C Routine 11/24/2024 12:07 PM DROP HAMMER PILE DRIVER OPERATOR Pre-existing type 2 diabetes mellitus during in second trimester EGFR Routine 10/02/2024 9:29 AM DROP HAMMER PILE DRIVER OPERATOR Supervision of high-risk , second trimester HEPATITIS C ANTIBODY Routine 09/14/2024 8:58 AM CDT Encounter for supervision of other normal in first trimester DIABETIC EYE EXAM Routine 04/24/2024 LIPID PANEL Routine 04/17/2024 8:18 AM CDT 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) ALBUMIN CREATININE RATIO, URINE Routine 04/17/2024 8:18 AM CDT 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) from Last 3 Months or Most Recently Relevant to Health Maintenance Results * (ABNORMAL) CBC without differential (03/31/2025 8:08 AM CDT) WBC 12.24(H) 3.80 - 9.90 K/cumm Comment:Testing performed by : [address] [address] Hgb 9.2(L) 11.9 - 15.5 g/dL [place] Comment:Testing performed by : [address] [address] Hct 29.2(L) 35.6 - 45.5 % [place]ANY Comment:Testing performed by : [address] [address] Plt 236 150 - 400 K/cumm BETHANY TELLEZ Comment:Testing performed by : [address] [address] MPV 10.6 9.1 - 12.3 fL B[facility]ANY TELLEZ Comment:Testing performed by : [address] [address] RBC 4.09 3.90 - 5.20 M/cumm [facility] TELLEZ Comment:Testing performed by : [address] [address] MCV 71.4(L) 81.3 - 96.4 fL [place] Comment:Testing performed by : [address] [address] MCH 22.5(L) 27.1 - 33.3 pg [place] Comment:Testing performed by : [address] [address] MCHC 31.5(L) 32.3 - 35.7 g/dL [place] Comment:Testing performed by : [address] [address] RDW CV 18.6(H) 11.1 - 14.9 % [place] Comment:Testing performed by : [address] [address] RDW SD 46.9 35.7 - 48.1 fL [place] Comment:Testing performed by : [address] [address] NRBC abs 0.02(H) 0.00 - 0.01 K/cumm [place] Comment:Testing performed by : [address] [address] Blood 03/31/2025 8:08 AM CDT 03/31/2025 9:37 AM CDT Marisol Aguirre CNM LAB BLOOD ORDERABLES Final Re [facility]ult [facility] [address] Department of Laboratories [place], [place] [id number] * (ABNORMAL) Glucose, fasting (03/31/2025 8:08 AM CDT) Glucose, fasting 127(H) 70 - 99 mg/dL Comment:Testing performed by : [address] [id number] Blood 03/31/2025 8:08 AM CDT 03/31/2025 9:37 AM CDT Marisol Aguirre CNM LAB BLOOD ORDERABLES Final Re sult Performing Organization Address [facility] Co de Phone Number [address] [place] [address] * POCT glucose (03/31/2025 5:36 AM CDT) Glucose, POC 97 70 - 199 mg/dL Comment:Testing performed by : [address] [address] Glucose comment 1 RN/MD Notified [facility] Comment:Testing performed by : [address] [address] Blood 03/31/2025 5:36 AM CDT 03/31/2025 5:36 AM CDT us Bhaskar Gonzalez MD LAB POCT ORDERABLES - JAKOB CE Final Result Performing Organization Address [facility] Co de Phone Number [address] [address] * POCT glucose (03/30/2025 1:26 PM CDT) Glucose, POC 99 70 - 199 mg/dL Comment:Testing performed by : [address] [address] Blood 03/30/2025 1:26 PM CDT 03/30/2025 1:26 PM CDT Bhaskar Gonzalez MD LAB POCT ORDERABLES - JAKOB CE Final Result Performing Organization Address [facility] de Phone Number [facility] [place] [address] * POCT glucose (03/30/2025 9:25 AM CDT) Glucose, POC 86 70 - 199 mg/dL Comment:Testing performed by : [facility], [address] [place] [address]., [address] Blood 03/30/2025 9:25 AM CDT 03/30/2025 9:25 AM CDT us Bhaskar Gonzaelz MD LAB POCT ORDERABLES - JAKOB CE Final Result Performing Organization Address [facility] de Phone Number [facility] [place] [address] * MO AN PROCEDURE PLACEHOLDER (03/30/2025 8:19 AM CDT) Narrative Chel Chambers CRNA - 03/30/2025 8:19 AM CDT Chel Chambers CRNA 03/30/2025 8:21 AM CSE Block Patient location during procedure: L&D Start time: 03/30/2025 7:50 AM End time: 03/30/2025 8:20 AM Reason for block: labor analgesia Staffing: Placed by: SEE WHEELER: Chel Chambers CRNA Preprocedure Prep: Preprocedure checklist: patient identified, procedure contraindications assessed, procedure consent, surgical consent, IV checked, risks, benefits and alternatives discussed, monitors and equipment checked and timeout performed Patient position: sitting Procedure performed while patient: awake Monitoring: oximetry and blood pressure Prep solution: povidone-iodine PPE: provider hat/mask, sterile gloves and sterile drape Skin infiltrated with lidocaine 1%: yes CSE: Approach: midline Location: L3-4 Other location: attmpted at L4-5 with tuohy hubbed and no loss of resistance Number of attempts: 2 Epidural Needle: Injection technique: CAM saline Needle type: Tuohy Needle gauge: 17 G Needle length: 9 cm Loss of resistance: 9 cm Spinal Needle: Needle type: Christiane Needle gauge: 25 Needle insertion: through epidural needle and positive CSF aspiration Catheter: Catheter type: multi-orifice Catheter at skin depth: 15 Test dose: negative Assessment: Sensory level - left: full eval pending Sensory level - right: full eval pending Events: patient tolerated procedure well with no complications Pal Abebe MD ANESTHESIA ORDERABLES Fi nal Result * POCT glucose (03/30/2025 7:28 AM CDT) Glucose, POC 84 70 - 199 mg/dL Comment:Testing performed by : [address] [id number] Blood 03/30/2025 7:28 AM CDT 03/30/2025 7:28 AM CDT Bhaskar Gonzalez MD LAB POCT ORDERABLES - JAKOB CE Final Result Performing Organization Address [facility] Co de Phone Number [address] [place] [address] * POCT glucose (03/30/2025 5:34 AM CDT) Glucose, POC 94 70 - 199 mg/dL Comment:Testing performed by : [address] [address] Glucose comment 1 Use This Result BETHANY Comment:Testing performed by : [address] [address] Blood 03/30/2025 5:34 AM CDT 03/30/2025 5:34 AM CDT Bhaskar Gonzalez MD LAB POCT ORDERABLES - JAKOB CE Final Result Performing Organization Address [facility] Co de Phone Number [address] [place] [address] * POCT glucose (03/30/2025 3:32 AM CDT) Glucose, POC 93 70 - 199 mg/dL Comment:Testing performed by : [address] [address] Glucose comment 1 RN/MD Notified [facility] Comment:Testing performed by : [address] [address] Blood 03/30/2025 3:32 AM CDT 03/30/2025 3:32 AM CDT Bhaskar Gonzalez MD LAB POCT ORDERABLES - JAKOB CE Final Result Performing Organization Address [facility] de Phone Number [address] [address] * POCT glucose (03/30/2025 1:38 AM CDT) Glucose, POC 80 70 - 199 mg/dL Comment:Testing performed by : [address] [address] Glucose comment 1 Use This Result [place]ANY Comment:Testing performed by : [address] [address] Blood 03/30/2025 1:38 AM CDT 03/30/2025 1:38 AM CDT Result [facility] Bhaskar Gonzalez MD LAB POCT ORDERABLES - JAKOB CE Final Result Performing Organization Address [facility] de Phone Number [address] [address] * POCT glucose (03/29/2025 9:21 PM CDT) Glucose, POC 90 70 - 199 mg/dL Comment:Testing performed by : [address] [address] Glucose comment 1 Use This Result [place]ANY Comment:Testing performed by : [address] [address] Blood 03/29/2025 9:21 PM CDT 03/29/2025 9:21 PM CDT Bhaskar Gonzalez MD LAB POCT ORDERABLES - JAKOB CE Final Result Performing Organization Address [facility] Co de Phone Number [address] [place] [address] * ABO/Rh (03/29/2025 8:57 PM CDT) Pathologist [facility] ABO/Rh O Positive Comment:Testing performed by : [facility], [address] [place] [address]., [address] Blood 03/29/2025 8:57 PM CDT 03/29/2025 9:15 PM CDT Narrative [facility] - 03/29/2025 10:00 PM CDT Has the patient had Daratumumab or Isatuximab in the past 6 months?->Unknown Brionna Monsalve MD LAB BLOOD BANK TEST ORDER TRACY Final Result Performing Organization Address [facility] de Phone Number [address] [place] [address] * RPR Blood (03/29/2025 8:57 PM CDT) [facility] RPR Nonreactive Nonreactive Comment:Testing performed by : [facility], [address] [place]., [address] Blood 03/29/2025 8:57 PM CDT 03/29/2025 11:17 PM CDT Brionna Monsalve MD LAB MICROBIOLOGY - GENERA L ORDERABLES Final Result Performing Organization Address [facility]/ZIP Co de Phone Number [address] [place] [address] * (ABNORMAL) CBC without differential (03/29/2025 8:57 PM CDT) Pathologist [facility] WBC 10.38(H) 3.80 - 9.90 K/cumm Comment:Testing performed by : [facility], [address] [place] [address]., [address] Hgb 10.2(L) 11.9 - 15.5 g/dL [place] Comment:Testing performed by : [address] [address] Hct 31.5(L) 35.6 - 45.5 % [place] Comment:Testing performed by : [address] [address] Plt 270 150 - 400 K/cumm [place] Comment:Testing performed by : [address] [address] MPV 9.8 9.1 - 12.3 fL [place] Comment:Testing performed by : [address] [address] RBC 4.53 3.90 - 5.20 M/cumm [place] Comment:Testing performed by : [address] [address] MCV 69.5(L) 81.3 - 96.4 fL [place] Comment:Testing performed by : [address] [address] MCH 22.5(L) 27.1 - 33.3 pg [place] Comment:Testing performed by : [address] [address] MCHC 32.4 32.3 - 35.7 g/dL [place] Comment:Testing performed by : [address] [address] RDW CV 18.6(H) 11.1 - 14.9 % [place] Comment:Testing performed by : [address] [address] RDW SD 45.4 35.7 - 48.1 fL [place] Comment:Testing performed by : [address] [address] NRBC abs 0.08(H) 0.00 - 0.01 K/cumm [place] Comment:Testing performed by : [address] [address] Blood 03/29/2025 8:57 PM CDT 03/29/2025 9:15 PM CDT Brionna Monsalve MD LAB BLOOD ORDERABLES Veronika l Result Performing Organization Address [facility] Co de Phone Number [address] [address] * Antibody screen (03/29/2025 8:57 PM CDT) Pathologist [facility] [place], indirect, Gel Interpretation Negative ABSC Comment:Testing performed by : [facility], [address] [place] [address]., [id number] Blood 03/29/2025 8:57 PM CDT 03/29/2025 9:15 PM CDT Narrative [facility] - 03/29/2025 10:00 PM CDT Has the patient had Daratumumab or Isatuximab in the past 6 months?->Unknown Brionna Monsalve MD LAB BLOOD BANK TEST ORDER TRACY Final Result Performing Organization Address [facility] Co de Phone Number [address] [place] [address] * nonstress test - (03/16/2025 12:36 PM CDT) [facility] NST Locations [facility] NST Baseline 140 FHR Variabilities Moderate (6-25bpm) Minimal (<5bpm), Moderate (6-25bpm), Marked (>25bpm) Decelerations None None, Variable, Early, Variable/Ea rly, Other (comment) Uterine Activity No Assessment Reactive Reactive NST Read by OBMD Codi Ramirez MD OB GYNE ORDERABLES Final Result * US Ob Follow Up (03/16/2025 9:57 AM CDT) Pathologist [facility] Fetus# Fetus1 VIEWPOINT Estimated Weight 3,286 g&grams VIEWPOINT Placenta Details posterior, Previa-no VIEWPOINT Presentation Vertex VIEWPOINT Anatomical Region Laterality Modality Abdomen N/A Ultrasound 03/16/2025 9:58 AM CDT Impressions 03/16/2025 10:43 AM CDT IUP at 37w 2d who presents for growth assessment. EFW at the 69%ile, abdominal circumference at the 91%ile. The amniotic fluid volume is normal. BPP is 6 our of 8 with points off for lack of sustained breathing movements. NST for equivocal BPP and MFM visit to follow. Narrative Procedure Note Ree Julian MD - 03/16/2025 IMPRESSION: IUP at 37w 2d who presents for growth assessment. EFW at the 69%ile, abdominal circumference at the 91%ile. The amniotic fluid volume is normal. BPP is 6 our of 8 with points off for lack of sustained breathingmovements. NST for equivocal BPP and MFM visit to follow. us Fabiola Agudelo CLAIMS ASSISTANT IMG OB US PROCEDURE S Final Result * Group B streptococcus PCR Vaginal/Rectal (03/07/2025 9:18 AM CDT) [facility] Strep group B PCR Negative Negative Comment: Interpretive Data Testing performed by [facility]. This test is performed using the Alerts Xpert GBS LB XC assay. This is a real-time PCR assay intended for the qualitative detection of nucleic acid from Streptococcus agalactiae (GBS). This assay has been cleared by the [place] Food and Drug administration. The performance characteristics have been verified by the [facility]. Penicillin is the drug of choice for Beta strep infections. A negative result does not rule out the possibility of GBS colonization. False negative results may occur if the organism is present at levels below the analytical limit of detection. Current interpretive data was last reviewed 2024 Testing performed by: [facility], [address] [place] [address], [place]., [address] Vaginal/Rectal 03/07/2025 9: 18 AM CDT 03/07/2025 4:02 PM CDT Narrative TODDNER - 03/08/2025 4:40 PM CDT Culture Type:->Vaginal/Anal Drag Is patient allergic to penicillin?->No Bhaskar Gonzalez MD LAB MICROBIOLOGY - GENERAL ORDERABLES Final Result [facility]ANY TELLEZ [address] [place] [address] * US Biophysical Profile WO Test (02/28/2025 10:56 AM CDT) Fetus# Fetus1 VIEWPOINT Placenta Details posterior VIEWPOINT Presentation Vertex VIEWPOINT Anatomical Region Laterality Modality N/A Ultrasound 02/28/2025 11:0 1 AM CDT Impressions 02/28/2025 12:13 PM CDT Single, live IUP with cardiac activity of 163 bpm bpm. Vertex. Amniotic fluid is normal amount. Placenta appears normal. BPP is 8/8. No other abnormalities within the limits of today's exam. Narrative Procedure Note Jax Carver MD - 02/28/2025 IMPRESSION: Single, live IUP with cardiac activity of 163 bpm bpm. Vertex. Amnioticfluid is normal amount. Placenta appears normal. BPP is 8/8. No otherabnormalities within the limits of today's exam. Jax Carver MD IMG OB US PROCEDURES Fin al Result * Urine culture Urine, clean voided (02/23/2025 1:53 PM CDT) Report Final Report: Less than 100,000 colonies/mL (clinically insignificant growth based on current clinical standards) Comment:Testing performed by : [facility], [address] [facility], [place]., [address] Organism (CLINICALLY INSIGNIFICANT GROWTH BETHANY TELLEZ Urine, clean voided 02/23/2025 1:53 PM CDT 02/23/2025 7:55 PM CDT Narrative BETHANY TELLEZ - 02/24/2025 8:43 PM CDT Testing performed by [facility] Microbiology Laboratory ([phone]) Alla Oh MD LAB MICROBIOLOGY - GENERAL ORDERABLES Final Result BETHANY [address] [place] [address] * US Ob Follow Up (02/16/2025 9:58 AM CDT) Fetus# Fetus1 VIEWPOINT Estimated Weight 2,099 g&grams VIEWPOINT Placenta Details posterior, Previa-no VIEWPOINT Presentation Vertex VIEWPOINT Anatomical Region Laterality Modality Abdomen N/A Ultrasound 02/16/2025 10:0 4 AM CDT Impressions 02/16/2025 10:49 AM CDT Normal biometry 2099 g at 34%and amniotic fluid 15.2 cm. The biophysical profile is 8/8 with normal breathing motion, body motion, tone and amniotic fluid volume. Narrative Procedure Note Coty Hernandez MD - 02/16/2025 IMPRESSION: Normal biometry 2099 g at 34%and amniotic fluid 15.2 cm. The biophysicalprofile is 8/8 with normal breathing motion, body motion, tone andamniotic fluid volume. Fabiola Agudelo CLAIMS ASSISTANT IMG OB US PROCEDURE S Final Result * US Ob Follow Up (01/19/2025 10:23 AM DROP HAMMER PILE DRIVER OPERATOR) Fetus# Fetus1 VIEWPOINT Estimated Weight 1,405 g&grams VIEWPOINT Placenta Details posterior, Previa-no VIEWPOINT Presentation Vertex VIEWPOINT Anatomical Region Laterality Modality Abdomen N/A Ultrasound 01/19/2025 10:2 6 AM DROP HAMMER PILE DRIVER OPERATOR Impressions 01/19/2025 11:14 AM DROP HAMMER PILE DRIVER OPERATOR 29w 2d IUP for evaluation of growth - AGA growth pattern, EFW 45%. Vertex presentation. Normal BRITTNEY, 11.9 cm. Narrative Procedure Note Roro Zaidi MD - 01/19/2025 IMPRESSION: 29w 2d IUP for evaluation of growth - AGA growth pattern, EFW 45%.Vertex presentation. Normal BRITTNEY, 11.9 cm. us Fabiola Agudelo CLAIMS ASSISTANT IMG OB US PROCEDURE S Final Result * HIV 1/2 Antibody plus p24 Antigen Blood (01/09/2025 9:06 AM DROP HAMMER PILE DRIVER OPERATOR) Pathologist [facility] HIV 1/2 ab + p24 ag Nonreactive Nonreactive Comment:Nonreactive for HIV- 1 antigen and HIV-1/HIV-2 antibodies. No laboratory evidence of HIV infection. If acute HIV infection is suspected, consider testing for HIV-1 RNA. Current interpretive data was last revised on 22. Blood 01/09/2025 9:06 AM DROP HAMMER PILE DRIVER OPERATOR 01/09/2025 12:43 PM DROP HAMMER PILE DRIVER OPERATOR us Barb Wong CLAIMS ASSISTANT LAB MICROBIOLOGY - GENERAL O RDERABLES Final Result Performing Organization Address City/[facility]/ZIP Co de Phone Number [place] [id number] [facility] [place] [address] * RPR Blood (01/09/2025 9:06 AM DROP HAMMER PILE DRIVER OPERATOR) Pathologist [facility] RPR Nonreactive Nonreactive Comment:Testing performed by : [facility], [address] [place]., [address] Blood 01/09/2025 9:06 AM DROP HAMMER PILE DRIVER OPERATOR 01/09/2025 1:27 PM DROP HAMMER PILE DRIVER OPERATOR us aBrb Wong CLAIMS ASSISTANT LAB MICROBIOLOGY - GENERAL O RDERABLES Final Result [address] [place] [address] * (ABNORMAL) CBC without differential (01/09/2025 9:06 AM DROP HAMMER PILE DRIVER OPERATOR) Pathologist [facility] WBC 11.6(H) 3.8 - 9.9 K/cumm Comment:Testing performed by : [facility], [address] [place] [address]., [address] Hgb 10.8(L) 11.9 - 15.5 g/dL BETHANY Comment:Testing performed by : [address] [address] Hct 33.9(L) 35.6 - 45.5 % BETHANY Comment:Testing performed by : [address] [address] Plt 271 150 - 400 K/cumm BETHANY Comment:Testing performed by : [address] [address] MPV 10.2 9.1 - 12.3 fL BETHANY Comment:Testing performed by : [address] [address] RBC 4.41 3.90 - 5.20 M/cumm BETHANY Comment:Testing performed by : [address] [address] MCV 76.9(L) 81.3 - 96.4 fL BETHANY Comment:Testing performed by : [address] [address] MCH 24.5(L) 27.1 - 33.3 pg BETHANY Comment:Testing performed by : [address] [address] MCHC 31.9(L) 32.3 - 35.7 g/dL BETHANY Comment:Testing performed by : [address] [address] RDW CV 16.0(H) 11.1 - 14.9 % BETHANY Comment:Testing performed by : [address] [address] RDW SD 44.4 35.7 - 48.1 fL BETHANY Comment:Testing performed by : [address] [address] NRBC abs 0.04(H) 0.00 - 0.01 K/cumm BETHANY Comment:Testing performed by : [address] [address] Blood 01/09/2025 9:06 AM DROP HAMMER PILE DRIVER OPERATOR 01/09/2025 10:38 AM DROP HAMMER PILE DRIVER OPERATOR Barb Paz Marvin CLAIMS ASSISTANT LAB BLOOD ORDERABLES Final R esult [facility] [address] [place] [address] * (ABNORMAL) Hemoglobin A1c (11/24/2024 12:07 PM DROP HAMMER PILE DRIVER OPERATOR) Hgb A1C 5.7(H) 4.0 - 5.6 % Estimated Average Glucose 117 mg/dL [facility] Comment: The ADA recommends reporting an estimated Average Glucose (eAG) with all Hemoglobin A1c results using the equation derived from a study of 507 normal and diabetic adults. Minority populations were underrepresented and children were not included. (Diabetes Care 31:0387-8058, 2008). The eAG is not equivalent to a fasting glucose. Blood 11/24/2024 12:0 7 PM DROP HAMMER PILE DRIVER OPERATOR 11/24/2024 12:28 PM DROP HAMMER PILE DRIVER OPERATOR Fabiola Agudelo CLAIMS ASSISTANT LAB BLOOD ORDERABLE S Final Result [facility] [address] [place] [address] * eGFR (10/02/2024 9:29 AM DROP HAMMER PILE DRIVER OPERATOR) eGFR >90 >=60 mL/min/1. 73 m2 Comment: Interpretive Data Reference Interval Normal >/= 90 mL/min/1.73m2 Mildly decreased* 60 - 89 mL/min/1.73m2 Mildly to moderately decreased 45 - 59 mL/min/1.73m2 Moderately to severely decreased 30 - 44 mL/min/1.73m2 Severely decreased 15 - 29 mL/min/1.73m2 Kidney Failure < 15 mL/min/1.73m2 *Relative to young adult level Estimated glomerular filtration rate is determined by the 2020 CKD-EPI equation recommended by the National Kidney Foundation (A Unifying Approach to GFR Estimation: Recommendations of the NKF-ASK Task Force on Reassessing the Inclusion of Race in Diagnosing Kidney Disease, JASN 2020). The CKD-EPI equation should not be used for patients with unstable renal function and has not been validated in children and those over 70. Current interpretive data was last reviewed 2021. Blood 10/02/2024 9:29 AM DROP HAMMER PILE DRIVER OPERATOR 10/02/2024 10:39 AM DROP HAMMER PILE DRIVER OPERATOR Carmen Serrano MD LAB BLOOD ORDERABLES Final R esult Performing Organization Address City/[facility]/ZIP Co de Phone Number BETHANY FLORIAN [facility] [place] [address] * Hepatitis C antibody Blood (09/14/2024 8:58 AM CDT) Pathologist [facility] Hep C Ab Nonreactive Nonreactive Comment: Antibodies to HCV not detected. Does NOT exclude the possibility of recent exposure to HCV. Current interpretive data was last revised on 22 Interpretive Data Nonreactive: Antibodies to HCV not detected. Does NOT exclude the possibility of recent exposure to HCV. Equivocal: Equivocal for HCV antibodies. Supplemental molecular testing will be automatically performed to determine infection status in accordance with current CDC screening recommendations. Reactive: Positive for HCV antibodies. This may represent current or past HCV infection. Supplemental molecular testing will be automatically performed to determine current infection status in accordance with current CDC screening recommendations. Interpretive data was last revised on 2020. Blood 09/14/2024 8:58 AM CDT 09/14/2024 12:44 PM CDT Barb Wong NP LAB MICROBIOLOGY - GENERAL O RDERABLES Final Result Performing Organization Address City/[facility]/ZIP Co de Phone Number BETHANY [address] Department [place] [address] * Diabetic Eye Exam (04/24/2024) Will Provider HEALTH MAINTENANCE Final Result * Albumin Creatinine Ratio, Urine (04/17/2024 8:18 AM CDT) Albumin Ur <12.0 mg/L Comment: Interpretive Data No reference range established. Current interpretive data was last revised 2019. Creatinine Ur 218.0 mg/dL BETHANY Comment: Interpretive Data No reference range established. Current interpretive data was last revised 2019. Albumin Creatinine Ratio, Ur <6 1 - 29 mg/g BETHANY TELLEZ Urine 04/17/2024 8:18 AM CDT 04/17/2024 12:30 PM CDT us Mayco CASILLAS LAB URINE ORDERABLES Final Resu lt BETHANY [address] [place] [address] * (ABNORMAL) Lipid panel (04/17/2024 8:18 AM CDT) Cholesterol 201(H) 30 - 199 mg/dL Comment: Interpretive Data Ages < or = 19 years Acceptable: <170 mg/dL Borderline high: 170-199 mg/dL High: >or= 200 mg/dL Ages > or = 20 years Desirable: <200 mg/dL Borderline high: 200-239 mg/dL High: >or= 240 mg/dL Literature References: 1. Expert Panel on Integrated Guidelines for Cardiovascular Health and Risk Reduction in Children and Adolescents. Pediatrics 2011;128:S213 2. NCEP Expert Panel. Circulation 2004;110:227 Current Interpretive Data was last revised on 2018. Triglycerides 95 <=149 mg/dL BETHANY Comment: Interpretive Data Ages < or = 9 years Acceptable: <75 mg/dL Borderline high: 75-99 mg/dL High: >or= 100 mg/dL Ages 10 to 20 years Acceptable: <90 mg/dL Borderline high: 90-129 mg/dL High: >or= 130 mg/dL Ages > or = 20 years Desirable: <150 mg/dL Borderline high: 150-199 mg/dL High: 200-499 mg/dL Very high: >or= 499 mg/dL Literature References: 1. Expert Panel on Integrated Guidelines for Cardiovascular Health and Risk Reduction in Children and Adolescents. Pediatrics 2011;128:S213 2. NCEP Expert Panel. Circulation 2004;110:227 Current Interpretive Data was last revised on 2018. HDL 48 >=40 mg/dL BETHANY TELLEZ Comment: Interpretive Data Ages < or = 19 years Acceptable: >45 mg/dL Borderline low: 40-45 mg/dL Low: <40 mg/dL Ages > or = 20 years Desirable: >or= 60 mg/dL Low: <40 mg/dL Literature References: 1. Expert Panel on Integrated Guidelines for Cardiovascular Health and Risk Reduction in Children and Adolescents. Pediatrics 2011;128:S213 2. NCEP Expert Panel. Circulation 2004;110:227 Current Interpretive Data was last revised on 2018. LDL, calculated 134(H) <=129 mg/dL BETHANY TELLEZ Comment: Interpretive Data Ages < or = 19 years Acceptable: <110 mg/dL Borderline high: 110-129 mg/dL High: >or= 130 mg/dL Ages > or = 20 years Optimal: <100 mg/dL Near optimal: 100-129 mg/dL Borderline high: 130-159 mg/dL High: >160 mg/dL Literature References: 1. Expert Panel on Integrated Guidelines for Cardiovascular Health and Risk Reduction in Children and Adolescents. Pediatrics 2011;128:S213 2. NCEP Expert Panel. Circulation 2004;110:227 Current Interpretive Data was last revised on 2018. Non-HDL Cholesterol 153 mg/dL BETHANY TELLEZ Comment: Interpretive Data Ages < or = 19 years Acceptable: <120 mg/dL Borderline high: 120-144 mg/dL High: >145 mg/dL Ages > or = 20 years When triglycerides are >200 mg/dL, Non-HDL cholesterol is a secondary target of therapy with treatment goals that are 30 mg/dL greater than the LDL cholesterol target. Literature References: 1. Expert Panel on Integrated Guidelines for Cardiovascular Health and Risk Reduction in Children and Adolescents. Pediatrics 2011;128:S213 2. NCEP Expert Panel. Circulation 2004;110:227 Current Interpretive Data was last revised on 2018. Chol/HDL ratio 4 BETHANY TELLEZ Blood 04/17/2024 8:18 AM CDT 04/17/2024 12:33 PM CDT us Mayco CASILLAS LAB BLOOD ORDERABLES Final Resu lt BETHANY TELLEZ [address] [place] [address] from Last 3 Months or Most Recently Relevant to Health Maintenance Insurance [employer] OPEN ACCESS [employer] OPEN ACCESS Advance Directives For more information, please contact: [phone] * Full Code (Latest Code Status on File) Date Activated Date Inactivated Comments 03/30/2025 3:49 PM 04/01/2025 5:04 PM * Full Code Date Activated Date Inactivated Comments 03/29/2025 8:43 PM 03/30/2025 3:49 PM Full CPR in case of cardiopulmonary arrest Care Teams Shell Press Operator Relationship Specialty Start Date End Date Mayco Harmon PA PCP - General Family Medicine 08/12/22 Marisol Aguirre CNM [address] [place] [id number] Data Entry Operator Obstetrics and Gynecology 03/31/25
--- OUTSIDE RECORDS SUMMARY | 2025-04-06 14:21 | XMS_ITS | Encounter Summary ---
Author Organization [facility] Address [address] [place] [address] Care Team Providers Care Driver'S License Examiner Name Role Phone Mayco Harmon Primary Care Provider [phone] Marisol Aguirre CNM Unavailable [phone] Encounter Details Date Type Department Care Team (Latest Contact Info) Description 03/10/2025 Results Follow-Up [facility] Obstetrical Gynecology [address] [phone] Bhaskar Gonzalez MD [facility] [address] Group B streptococcus PCR Vaginal/Rectal Social History Tobacco Use Types Packs/Day Years Used Date Smoking Tobacco: Never Smokeless Tobacco: Never Alcohol Use Standard Drinks/Week Comments Never 0 [...] more drinks on one occasion? Never 11/17/2024 PHQ-2 Answer Date Recorded PHQ-2 Total Score (If total score is 3 or more points, staff should administer the PHQ-9) 0 04/17/2024 Personal Safety Answer Date Recorded Have you ever been in or are you currently in a harmful physical or emotional relationship or is someone making you feel afraid or unsafe? Denies 02/25/2025 Comments Yes Sex and Gender Information Value Date Recorded Sex Assigned at Not on file Legal Sex Female 7:01 PM DAYTIME CAREGIVER Gender Identity Not on file Sexual Orientation Not on file documented as of this encounter Plan of Treatment Not on file documented as of this encounter Visit Diagnoses Not on filedocumented in this encounter Care Teams Driver'S License Examiner Relationship Specialty Start Date End Date Mayco Harmon PA PCP - General Family Medicine 08/12/22 Marisol Aguirre CNM [address] [place] [id number] Inspector Coated Fabrics Obstetrics and Gynecology 03/31/25 documented as of this encounter
--- OUTSIDE RECORDS SUMMARY | 2025-04-06 14:21 | XMS_ITS | Clinical Summary ---
Author Organization [facility] Address [address] [place] [address] Care Team Providers Care Human Resources Benefits Specialist Name Role Phone Unavailable Primary Care Provider Unavailabl e Social History Tobacco Use Types Packs/Day Years Used Date Smoking Tobacco: Never Assessed Comments Unknown Sex and Gender Information Value Date Recorded Sex Assigned at Not on file Legal Sex Female 1:20 PM DICTAPHONE MECHANIC Gender Identity Not on file Sexual Orientation Not on file Plan of Treatment Health Maintenance Due Date Last Done Comments Hepatitis C Virus (HCV) Screening 1999 Pap Smear 2020 Influenza Immunization (#1) 2024 03/0 11/2019, 08/12/2018, 10/07/2016, Additional history exists SARS-COV-2 Immunization ( season) 2024 Respiratory Syncytial Virus (RSV) Immunization (Adult) (1 - 1-dose 75+ series) 2074 Hepatitis B Immunization Completed 000, 1999, 1999, Additional history exists Pneumococcal Immunization Combined Aged Out 03/04/2001, 10/21/2000 No longer eligibl e based on patient's age to complete this topic DTaP/Tdap/Td Immunization Discontinued 2010, 04/05/2004, 03/04/2001, Additional history exists TdaP Immunization Completed 03/23/2011 Human Papillomavirus (HPV) Immunization Completed 07/07/2012, 03/07/2012, 01/05/2012 Meningococcal Immunization (ACWY) Completed 05/12/2016, 03/23/2011 Meningococcal B Immunization Discontinued 08/19/2017, 07/15/2017 Rotavirus Immunization Aged Out No lo nger eligible based on patient's age to complete this topic Insurance [employer] on file
--- OUTSIDE RECORDS SUMMARY | 2025-04-06 14:21 | XMS_ITS | Clinical Summary ---
Author Organization [facility] Address [address] [place] [address] Care Team Providers Care Hand Mounter Name Role Phone Ronnie Pope MD Primary Care Provider Unavail able Source Comments [facility],non-owned Affiliates and Associated Physician Practices is amultiple site organization consisting of ambulatory clinics and hospital sitesin [place], [place], [place] and [place]. This disclosure is being madepursuant to the Care Everywhere program and may not contain all information available regarding this patient. Last updated 18.[facility] Allergies No known active allergies Medications * Be aware that medications may not be up to date on this document. Alwaysverify current medications with the patient. Spacer/Aero-Hol ding Chambers (AEROCHAMBER) Use as directed 1 Each 0 6 Active ranitidine (ZANTAC) 150 MG tablet Take 150 mg by mouth 2 times daily Active albuterol HFA (PROAIR HFA) 108 (90 BASE) MCG/ACT inhaler Inhale 2 puffs by mouth every 4 hours as needed 1 Inhaler 2 7 Active FLUoxetine (PROZAC) 20 MG capsule Take 20 mg by mouth once daily 8 Active MICROGESTIN 1-20 MG-MCG tablet TK 1 T PO D UTD 5 8 Active montelukast (SINGULAIR) 10 MG tablet Take 1 tablet by mouth once daily 30 tablet 5 8 Active baclofen (LIORESAL) 10 MG tablet Take 1 tablet by mouth at bedtime May cause drowsiness. 30 tablet 3 8 Active methylphenidate CR (CONCERTA) 54 MG tabletIndicatio ns:Narcolepsy Take 1 tablet by mouth every morning Reasons: Recurring Sleep Episodes During the Day 30 tablet 9 Active benzonatate (Tessalon) 100 MG capsule Take 1 (one) capsule by mouth 3 times daily as needed for Cough 14 capsule 2 Active Active Problems Problem Noted Date Diagnosed Date Supervision of normal first , antepartu m 09/11/2019 Abnormal ultrasound 09/11/2019 Overview (09/11/2019): Dilated kidneys 6 - 7 mm on outside scan Left foot pain 02/25/2017 Primary snoring 04/16/2016 Overview (04/16/2016): Neg diag psg with a +MSLT 03/15/16 RDI 0.7 AHI: 0.7 Obstructive AHI:0 .6 Min 02 sat 94% MSLT shows idiopathic hypersomnia Slept 5 of 5 naps with avg sleep latency of 7.1 min Only 1 SOREM Idiopathic hypersomnia 04/16/2016 Overview (04/16/2016): Neg diag psg with a +MSLT 03/15/16 RDI 0.7 AHI: 0.7 Obstructive AHI:0 .6 Min 02 sat 94% MSLT shows idiopathic hypersomnia Slept 5 of 5 naps with avg sleep latency of 7.1 min Only 1 SOREM Mild persistent asthma without complication 12/17 Assessment & Plan (06/01/2018 3:40 PM CDT): Since her last visit, Vale has been doing well and overall asymptomatic. Controller therapies have been well tolerated with minimal use of albuterol. Her PFTs show some obstruction of her lower airways, but have been over all stable since her last visit. We recommend that Vale continues on her current regimen and get the flu shot in the fall. Follow up in pulmonology clinic in 6 months. Assessment & Plan (12/01/2016 7:39 AM DIAGNOSTIC IMAGING MANAGER): Baseline symptoms seem to be doing well. Occasional episodes of what sound like hyperventilation occurring in school, addressed this concern with Vale and her mother who agree. Continuing current Symbicort therapy for control. Advised on planned albuterol before known exercise. Assessment & Plan (03/06/2016 3:59 PM CDT): Currently under poor control in particular with exercise despite reliable use of Flovent 44mcg 2 puffs BID with appropriate spacer use. The presence of exercise induced symptoms with aerobic activity is often improved following transition to a combination inhaler that includes a long acting beta agonist. That said, I aim to switch therapy today to step up control with Symbicort 80-4.5 2 puffs BID. Continue Albuterol PRN for rescue. Assessment & Plan (01/07/2016 9:39 PM DIAGNOSTIC IMAGING MANAGER): Continue Flovent as control based on small airway involvement seen on spirometry today. Though this aspect is seen objectively, I sense this doesn't explain the majority of symptoms that are likely attributed to vocal cord dysfunction. Vocal cord dysfunction 10/09/2015 Assessment & Plan (06/01/2018 3:37 PM CDT): Speech therapy recommended breathing techniques before exercise and sports. We recommend that Vale continue these techniques before periods of activity. Assessment & Plan (12/01/2016 7:42 AM DIAGNOSTIC IMAGING MANAGER): Certain aspects of exercise associated dyspnea are very consistent with vocal cord dysfunction. A fair amount of time has passed since initial assessment by speech therapy where breathing techniques during exercise were taught and provided relief for Vale. I advised to consider reaching out to speech therapy first via phone consultation if needing to review breathing techniques and if needed, repeat an in person assessment for review. Additionally, I have recommended that these breathing techniques to be utilized as opposed to some of the breathing recommendations of her current track manager to limit some of the dyspnea occurring during activity. Will work with school coaches/trainers to clarify plan moving forward. Assessment & Plan (01/07/2016 9:34 PM DIAGNOSTIC IMAGING MANAGER): Symptoms continue to be strongly suggestive of dynamic extrathoracic airway obstruction as seen with vocal cord dysfunction. The family was somewhat unaware that there could be follow up with speech therapy to update on new symptoms and to troubleshoot any issues with breathing exercise to provide relief. The family has agreed to follow up with regards to speech therapy via phone call following today's visit. Reopened discussion on possible contributing factors (anxiety, stressors) to see if additional counseling support through their PMD may be of benefit. Assessment & Plan (10/09/2015 1:00 AM DIAGNOSTIC IMAGING MANAGER): Clinical symptoms, history, and physical exam findings today are consistent with a diagnosis of vocal cord dysfunction. Discussed in detail with family who agreed with diagnosis. Will refer to speech therapy at [facility] to further help clarify diagnosis with exercise and also to provide breathing exercises to aid in minimizing dyspnea. F/U in 2 months. Allergic rhinitis Hypertrophy of nasal turbinates Resolved Problems Problem Noted Date Diagnosed Date Resolved Date Right foot pain 02/05/2017 02/25/2017 Sleep disturbance 04/16/2016 Immunizations Immunization Administration Dates Next Due INFLUENZA VACCINE, QUADR. (F LUZONE; FLULAVAL; FLUARIX; AFLURIA QUADRIVALENT; 6MO+), 0.5 ML (IIV4) 09/01/2017 Family History Medical History Relation Name Comments Anesthesia Reaction Neg Hx Bleeding Disorders Neg Hx Ear Infections Neg Hx Hearing Loss Neg Hx Social History Tobacco Use Types Packs/Day Years Used Date Smoking Tobacco: Never Smokeless Tobacco: Never Alcohol Use Standard Drinks/Week Comments No 0 (1 standard drink = 0.6 oz pur e alcohol) AUDIT-C Answer Date Recorded Q1: How often do you have a drink containing alcohol? Never 10/08/2022 Q2: How many drinks containi ng alcohol do you have on a typical day when you are drinking? Patient does not drink Q3: How often do you have si x or more drinks on one occasion? Never 10/08/2022 Comments No Sex and Gender Information Value Date Recorded Sex Assigned at Not on file Legal Sex Female 5:45 PM CDT Gender Identity Not on file Sexual Orientation Not on file Last Filed Vital Signs Vital Sign Reading Time Taken Comments Blood Pressure 118/80 10/08/2022 11:02 PM DIAGNOSTIC IMAGING MANAGER Pulse 106 10/08/2022 11:02 PM DIAGNOSTIC IMAGING MANAGER Temperature 37.8 C (100 F) 10/08/2022 9:05 PM DIAGNOSTIC IMAGING MANAGER Respiratory Rate 10 10/08/2022 11:02 PM DIAGNOSTIC IMAGING MANAGER Oxygen Saturation 96% 10/08/2022 11:02 PM DIAGNOSTIC IMAGING MANAGER Inhaled Oxygen Concentration - - Weight 83.1 kg (183 lb 3.2 oz) 07/22/2018 7:02 P M CDT Height 147.3 cm (4' 10 ) 07/22/2018 7:02 PM CDT Body Mass Index 38.29 07/22/2018 7:02 PM CDT Plan of Treatment Health Maintenance Due Date Last Done Comments PAP SMEAR 1999 HIV SCREENING 2014 HPV VACCINE (1 - 3-dose series) 2014 CHLAMYDIA/GONORRHEA SCREENING 2015 HEPATITIS C SCREENING 07/15/2017 DTAP/TDAP/TD VACCINES (1 - Tdap) 2018 HEPATITIS B VACCINE (1 of 3 - 19+ 3-dose series) 2018 PNEUMOCOCCAL VACCINE (1 of 2 - PCV) 2018 COVID-19 VACCINE (3 - season) 2024 11/28/2021, 10/31/2021 DEPRESSION SCREENING 11/15/2024 INFLUENZA VACCINE (Season Ended) 2025 01/14/2020, 08/12/2018, 09/01/2017, Additional history exists ZOSTER VACCINE (1 of 2) 2049 HIB VACCINE Aged Out No longer eligi ble based on patient's age to complete this topic MENINGOCOCCAL (Group B) VACCINE SHARED DECISION-MAKING Aged Out No longer eligible based on patient's age to complete this topic MENINGOCOCCAL GROUPS A/C/Y/W VACCINE Aged Out No longer eligible based on patient's age to complete this topic Insurance [employer] [facility] [place] [address] Care Teams Hand Mounter Relationship Specialty Start Date End Date Ronnie Pope MD PCP - General 10/10/22
--- OUTSIDE RECORDS SUMMARY | 2025-04-06 14:21 | XMS_ITS | Clinical Summary ---
Author Organization [place] [id number] [facility] Address [address] [place] [address] Care Team Providers Care Janitor Head Name Role Phone Mayco Harmon Primary Care Provider [phone] Marisol Aguirre CNM Unavailable [phone] Allergies Active Allergy Reactions Criticality Noted Date Comments Metformin Diarrhea Low 01/20/2024 Medications albuterol HFA (PROVENTIL HFA,VENTOLIN HFA,PROAIR HFA) 90 mcg/actuation inhaler Inhale 2 puffs every 6 (six) hours as needed for wheezing or shortness of breath Active vit 57-rklv-kqwvl-dha 27mg iron- 800 mcg-250 mg capsule Take by mouth Active ferrous sulfate 325 mg (65 mg of elemental iron) tabletIndications :Iron Deficiency Anemia Take 1 tablet (325 mg total) by mouth daily with breakfast 30 tablet 024 2024 Active aspirin 81 mg enteric coated tablet Take 1 tablet (81 mg total) by mouth daily 30 tablet 025 2025 Active ondansetron ODT (ZOFRAN-ODT) 4 mg disintegrating tablet Take 1 tablet (4 mg total) by mouth every 8 (eight) hours as needed for nausea or vomiting 20 tablet 025 Active ferrous sulfate 325 mg (65 mg [...] hours as needed for pain 40 tablet Active acetaminophen (TYLENOL) 325 mg tablet Take [...] 1 SVE and membrane sweep with consent: /-2, soft, posterior Pitocin infusing at 2 mu/hr - titrate per protocol Pain management per pt wishes - desires epidural AROM once comfortable with epidural Continue IOL 03/30/2025, 0900 (JF): VSS, AF FHT Cat 2 - VD after epidural placement, resolved with repositioning Comfortable with epidural SVE and AROM with consent: /-2, clear fluid IUPC placed with consent Pitocin [...] 02/23/25 Assessment & Plan (01/20/2025 12:45 PM FOOD SAFETY MANAGER): Jourdan has a history of sickle cell trait. Discussed risk of inheritance in fetus. Reports FOB negative for trait. Recommend urine culture every trimester. Plan: [] Follow-up records from [place] [] Urine culture every trimester [x] 1st [...] cervical ripening, then increase frequency 03/29/2025, 0710 (ROMEO): BG wnl Accu checks q 2 hrs [...] data to adjust insulin dosing - Sathish DIA to do via [facility] [x] Glucagon prescribed [...] continue weekly for BMI) [x] Delivery at [id number]-16k7m (18a0g-95b0o with vascular complications or poorly controlled) - with primary OB Assessment & Plan (01/20/2025 12:44 PM FOOD SAFETY MANAGER): History Diagnosed age 24 History of DKA? no Last hemoglobin A1C: 6.6% on 09/14/24 Pre- regimen: none (dx this ) Pre- weight: 97 kg Previously counseled Current regimen: 01/19/2025- no changes - encouraged after dinner values be taken consistently Diet control Encouraged testing 4 times per day Repeat growth in 4 weeks Assessment & Plan (11/24/2024 11:38 AM FOOD SAFETY MANAGER): Reports bs well controlled at home. Continue without meds. Assessment & Plan (11/17/2024 12:13 PM FOOD SAFETY MANAGER): Chronic condition stable improved A1c 5.7 today. [...] & Plan (03/16/2025 11:33 AM CDT): BPP 04/22, NST reactive for complete score of 06/24. Reassuring. Recommendations [x] Early screening for overt diabetes- T2DM [x] Specialized anatomy ultrasound [x] Serial growth ultrasounds q4 weeks starting at 24 weeks - completed 03/16/2025, AGA [] Weekly testing starting at 34 weeks given BMI of 40+ - ongoing with primary OB Assessment & Plan (01/20/2025 12:44 PM FOOD SAFETY MANAGER): BMI: 44, previously counseled Plan [x] Early screening for overt diabetes- T2DM [x] Specialized anatomy ultrasound [] Serial growth ultrasounds q4 weeks starting at 24 weeks- ongoing [] Weekly testing starting at 34 weeks given BMI of 40+ History of iron deficiency anemia 09/18/2024 Assessment & Plan (11/17/2024 12:13 PM FOOD SAFETY MANAGER): Chronic stable well corrected with use of [...] management: epidural Support: mom, partner, partner's mother [place] Asthma: Albuterol inhaler prn Sickle trait: Urine [...] pantoprazole. Assessment & Plan (01/14/2024 10:55 AM FOOD SAFETY MANAGER): Chronic stable well controlled Continue pantoprazole. Assessment & Plan (10/27/2023 3:51 PM FOOD SAFETY MANAGER): Chronic stable well controlled Continue pantoprazole. Assessment & Plan (10/16/2022 8:23 AM FOOD SAFETY MANAGER): Chronic and stable Well controlled with protonix [...] symptoms. Assessment & Plan (11/04/2020 5:03 PM FOOD SAFETY MANAGER): Well controlled on current regimen, no rx [...] PCP Assessment & Plan (11/17/2024 12:13 PM FOOD SAFETY MANAGER): Chronic stable well-controlled no recent exacerbation Continue [...] 3mo Assessment & Plan (01/14/2024 10:55 AM FOOD SAFETY MANAGER): Chronic Stable New on metformin F/u in 3mo with a1c Assessment & Plan (10/27/2023 3:52 PM FOOD SAFETY MANAGER): Chronic condition not at goal Patient was [...] SOREM Assessment & Plan (11/04/2020 5:03 PM FOOD SAFETY MANAGER): Good control with Concerta. Primary snoring 04/16/2016 [...] months. Assessment & Plan (10/16/2022 8:30 AM FOOD SAFETY MANAGER): Chronic and not well Controlled. Having more freqeunt complications. Start simbicort 160/4.5 Assessment & Plan (07/10/2021 8:02 AM CDT): Chronic condition refill duoneb nebulizer Failure to inhaler Assessment & Plan (11/04/2020 5:04 PM FOOD SAFETY MANAGER): Well controlled on current regimen, no rx [...] continue these techniques before periods of activity. Encounters Date Type Department Care Team Description 04/06/[address] [facility] Family Medicine at [address] [place] [address] Mayco Hamron PA Symptom Based Call 03/30/2025 7:50 [place] [address] Pal Abeeb MD Maberry, Kristin R., CRNA 03/29/2025 8:18 PM CDT - 04/01/2025 1:04 PM CDT Hospital Encounter [address] [address] Bhaskar Gonzalez MD Steiner, Holly Laura, MD Encounter for induction of labor [Z34.90] (Primary Dx); Pre-existing type 2 diabetes mellitus during in third trimester [O24.113]; Supervision of high-risk , third trimester [O09.93]; Severe obesity due to excess calories affecting in third trimester (HCC) [O99.213, E66.01] Discharge Disposition: Discharge to home or self care 03/26/2025 9:45 AM CDT Procedure visit [facility] Obstetrical Gynecology [address] [place] [phone] 03/23/2025 12:45 PM CDT Procedure visit [facility] Obstetrical Gynecology [address] [place] [phone] Brionna Monsalve MD Pre-existing type 2 diabetes mellitus during in third trimester (Primary Dx) 03/22/2025 2:09 PM CDT - 03/22/2025 11:59 PM CDT Hospital Encounter [address] [address] Discharge Disposition: Discharge to home or self care 03/20/2025 9:00 AM CDT Procedure visit [facility] Obstetrical Gynecology [address] [place] [phone] Pre-existing type 2 diabetes mellitus during in third trimester (Primary Dx); Obesity affecting in first trimester, unspecified obesity type; History of iron deficiency anemia; BMI 40; Supervision of high-risk , third trimester 03/16/2025 10:45 AM CDT Office Visit [facility] Maternal- Medicine [address] Office Building [address] [place] [phone] Pre-existing type 2 diabetes mellitus during in third trimester (Primary Dx); BMI 40; Asthma affecting in third trimester; Sickle cell trait; Supervision of high-risk , third trimester 03/16/2025 10:30 AM CDT Clinical Support [facility] Obstetrics and Gynecology [address] [place] [address] Office [address] [place] [phone] Pre-existing type 2 diabetes mellitus during in third trimester (Primary Dx); BMI 40; Supervision of high-risk , third trimester 03/16/2025 9:45 AM CDT - 03/16/2025 11:59 PM CDT Hospital Encounter [facility] [address] [place] [phone] Obesity affecting in first trimester, unspecified obesity type; Pre-existing type 2 diabetes mellitus during in second trimester Discharge Disposition: Discharge to home or self care 03/10/2025 Results Follow-Up [facility] Obstetrical Gynecology [address] [place] [phone] Bhaskar Gonzalez MD Group B streptococcus PCR Vaginal/Rectal 03/09/2025 2:40 PM CDT Pre-Admission Testing [facility] Pre Admit Testing [facility] [place] [address] Obesity affecting in third trimester, unspecified obesity type 03/09/2025 1:30 PM CDT Procedure visit [facility] Obstetrical Gynecology [address] [place] [phone] Pre-existing type 2 diabetes mellitus during in third trimester (Primary Dx) 03/07/2025 11:06 AM CDT - 03/07/2025 11:59 PM CDT Hospital Encounter [facility] Medical Office Building [address] [place] [phone] Encounter for related examination in third trimester Discharge Disposition: Discharge to home or self care 03/07/2025 9:15 AM CDT Procedure visit [facility] Obstetrical Gynecology [address] [place] [phone] Bhaskar Gonzalez MD Encounter for related examination in third trimester (Primary Dx); Pre-existing type 2 diabetes mellitus during in third trimester; Severe obesity due to excess calories affecting in third trimester (HCC) 03/02/2025 1:00 PM CDT Procedure visit [facility] Obstetrical Gynecology [address] [place] [address] [phone] Pre-existing type 2 diabetes mellitus during in second trimester (Primary Dx) 02/28/2025 11:45 AM CDT Procedure visit [facility] Obstetrical Gynecology [address] [place] [address] [phone] Jax Carver MD Pre-existing type 2 diabetes mellitus during in second trimester (Primary Dx); Supervision of high-risk , second trimester; Obesity affecting in first trimester, unspecified obesity type 02/28/2025 11:15 AM CDT Ancillary Procedure [facility] Obstetrical Gynecology [address] [place] [phone] Type 2 diabetes mellitus without complication, without long-term current use of insulin ([facility]) 02/27/2025 9:00 AM CDT - 02/27/2025 11:59 PM CDT Hospital Encounter [address] [address] Discharge Disposition: Discharge to home or self care 02/27/2025 Orders Only [facility] Pre Admit Testing [address] [place] [phone] Ana Hernandez RN Obesity affecting in third trimester, unspecified obesity type (Primary Dx) 02/25/2025 5:50 PM CDT - 02/25/2025 8:13 PM CDT Emergency [facility] OB Emergency Department [address] [place] [phone] Jax Carver MD Decreased movements in third trimester, single or unspecified fetus (Primary Dx); 34 weeks gestation of ; uterine contractions in third trimester, antepartum Discharge Disposition: Discharge to home or self care 02/23/2025 3:54 PM CDT - 02/23/2025 11:59 PM CDT Hospital Encounter [facility] Lab [address] [place] [address] Sickle cell trait Discharge Disposition: Discharge to home or self care 02/23/2025 12:45 PM CDT Procedure visit [facility] Obstetrical Gynecology [address] [place] [phone] Alla Oh MD Sickle cell trait (Primary Dx); Pre-existing type 2 diabetes mellitus during in second trimester; Third trimester 02/23/2025 Orders Only [facility] Obstetrical Gynecology [address] [place] [phone] Jax Carver MD Type 2 diabetes mellitus without complication, without long-term current use of insulin (HCC) (Primary Dx) 02/20/2025 10:00 AM CDT Procedure visit [facility] Obstetrical Gynecology [address] [place] [address] [place] [phone] Pre-existing type 2 diabetes mellitus during in second trimester (Primary Dx) 02/16/2025 10:45 AM CDT Office Visit [facility] Maternal- Medicine [facility] [address] [place] [address] Medical Office Building [address] [place] [phone] Pre-existing type 2 diabetes mellitus during in second trimester (Primary Dx); Sickle cell trait; Cyst of ovary, left; Asthma affecting in second trimester; Obesity affecting in first trimester, unspecified obesity type 02/16/2025 9:58 AM CDT - 02/16/2025 11:59 PM CDT Hospital Encounter [facility] [address] [place] [phone] Obesity affecting in first trimester, unspecified obesity type; Pre-existing type 2 diabetes mellitus during in second trimester Discharge Disposition: Discharge to home or self care 02/13/2025 9:00 AM CDT Procedure visit [facility] Obstetrical Gynecology [address] [place] [address] [place] [address] [phone] Pre-existing type 2 diabetes mellitus during in second trimester (Primary Dx) 02/09/2025 8:15 AM CDT Procedure visit [facility] Obstetrical Gynecology [address] [place] [address] [place] [address] [phone] Jax Carver MD Pre-existing type 2 diabetes mellitus during in second trimester (Primary Dx); Supervision of high-risk , second trimester; Sickle cell trait; Obesity affecting in first trimester, unspecified obesity type; History of iron deficiency anemia 02/06/2025 10:00 AM CDT Procedure visit [facility] Obstetrical Gynecology [address] [place] [address] [place] [address] [phone] Pre-existing type 2 diabetes mellitus during in second trimester (Primary Dx) 01/26/2025 1:30 PM CDT Office Visit [facility] Obstetrical Gynecology [address] [place] [address] [address] [place] [phone] Marisol Aguirre CNM 30 weeks gestation of (Primary Dx) 01/19/2025 11:15 AM FOOD SAFETY MANAGER Office Visit [facility] Maternal- Medicine [facility] [address] [facility] Medical Office Building [address] [place] [phone] Pre-existing type 2 diabetes mellitus during in second trimester (Primary Dx); Obesity affecting in first trimester, unspecified obesity type; Supervision of high-risk , second trimester 01/19/2025 10:00 AM FOOD SAFETY MANAGER - 01/19/2025 11:59 PM FOOD SAFETY MANAGER Hospital Encounter [facility] [address] [facility] [address], [place] [phone] Obesity affecting in first trimester, unspecified obesity type; Pre-existing type 2 diabetes mellitus during in second trimester Discharge Disposition: Discharge to home or self care 01/09/2025 9:30 AM FOOD SAFETY MANAGER Office Visit [facility] Obstetrical Gynecology [address] [place] [address] [phone] Bhaskar Gonzalez MD Encounter for related examination in third trimester (Primary Dx) 01/09/2025 8:55 AM FOOD SAFETY MANAGER Lab [facility] Medical Office Building [address] [place] [phone] Third trimester 01/09/2025 Results Follow-Up [facility] Obstetrical Gynecology [address] [place] [phone] Alla Oh MD CBC without differential, RPR Blood, HIV 1/2 Antibody plus p24 Antigen Blood from Last 3 Months Immunizations Immunization Administration Dates Next Due DTaP [...] Conjugate 7-Valent 03/04/2001,10/21 Tdap 01/09/2025,03/23/2011 Varicella 08/20/2008,04/01/2007,10/21/2000 Surgical History Surgery Date Site/Laterality Comments WISDOM TOOTH EXTRACTION Medical History Medical History Date Comments GERD (gastroesophageal reflu x disease) Narcolepsy 2015 Anemia Asthma Abnormal ultrasound 09/11/2019 Format ting of this note might be different from the original. Dilated kidneys 6 - 7 mm on outside scan Family History Medical History Relation Name Comments No Known Problems Brother 1 No Known Problems Brother 2 No Known Problems Father Colon cancer Maternal Grandfather Antonio Hypertension Maternal Grandfather Antonio Cervical cancer Maternal Grandmother Diabetes Mother Silvia Hypertension Mother Silvia Hypertension Paternal Grandfather Antonio Breast cancer Paternal Grandmother No Known Problems Sister 1 No Known Problems Sister 2 No Known Problems Sister 3 No Known Problems Sister 4 No Known Problems Son Relation Name Status Comments Brother 1 Alive Brother 2 Alive Father Alive Maternal Grandfather Antonio Alive Maternal Grandmother Mother Silvia Alive Paternal Grandfather Antonio Alive Paternal Grandmother Sister 1 Alive Sister 2 Alive Sister 3 Alive Sister 4 Alive Son Alive Social History Tobacco Use Types Packs/Day Years [...] things needed for daily living? No 03/29/2025 Sherrill Depression Scale Answer Date Recorded Sherrill Depression Scale Total 0 04/01/2025 The thought [...] any time in the past 12 m [place], were you homeless or living in a long term (including now)? No 03/29/2025 Personal Safety Answer Date Recorded Have you ever been in or are you currently in a harmful physical or emotional relationship or is someone making you feel afraid or unsafe? Denies 03/29/2025 Comments No Sex and Gender Information Value Date Recorded Sex Assigned at Not on file Legal Sex Female 7:01 PM FOOD SAFETY MANAGER Gender Identity Not on file Sexual Orientation Not on file Obstetrics History Para Term AB IAB SAB Ectopic Multiple Livin g Live Births 2 2 2 0 2 2 Date Outcome GA Total Labor Labor/2nd/3rd Weight Sex Type Anes PTL Adarsh A1 A5 Name Clin 2019 Term 39w 0d 3.26 kg (7 lb 3 oz) M Vag-Sp ont Epidur al N Livin g Complications:None Delivery Location:[facility] [place] 2024 Term 39w 2d 0h 15m 0h 12m/0h 03m 3.47 kg (7 lb 10.4 oz) F Vagina l Epidur al N Livin g 8 9 Erika'a na T Martin on Juliette Aguirre, CNM Complications:None Delivery [facility] Main C ampus ([facility]) Summary Episode Dates Number of Fetuses Estimated Date of Delivery 08/24/2024 - Present (04/06/2025) 1 04/04/2025 (set by Valeria Cummins RN on 08/24/2024 based on Last Menstrual Period on 06/28/2024) Dating Summary Based On DERRELL GA Diff Last Menstrual Period on 06/28/2024 04/04/2025 Working Ultrasound on 08/24/2024 04/05/2025 -1d GA:8w0d Overview and Plan :[place] sex:Female Support person:Jim Delivery Plans Post-Delivery Plans Planned delivery method:Vaginal Feeding intentions:Formula Planned delivery location:[facility] Cord blood plans:Do Not Collect Planned anesthesia:Epidural Acceptable blood products:All Overview Surveillance of EDC by LMP = 8 week US O+/I/-/-, HIV and RPR NR Genetics: low risk Anatomy: 20 weeks, MFM GCT: T2DM/GDM? 3rd trim CBC/HIV/RPR Tdap: 27+ weeks GBS: negative Social Barriers: none Mode of feeding: Method of contraception: Delivery Planning: TBD Obesity: early glucose ordered Anesthesia consult: 03/09 Vitals Pregravid Weight Height TWG (As of 04/06/2025) Pregrav id BMI 97.1 kg (214 lb) 152.4 cm (5') -2.54 kg (-5 lb 9.6 oz) 41.79 Date GA Fund Present FHR Mvmt BP Weight Edema Alb Glu Ket Dil/ Eff/Sta 4 13w5d Inpatient data not displayed here. See encounter summary. 5 21w2d Inpatient data not displayed here. See encounter summary. 5 25w2d Inpatient data not displayed here. See encounter summary. 5 29w2d Inpatient data not displayed here. See encounter summary. 5 33w2d Inpatient data not displayed here. See encounter summary. 5 37w2d Inpatient data not displayed here. See encounter summary. 5 39w2d Inpatient data not displayed here. See encounter summary. Notes Progress Notes - Hospital En counter - 04/01/2025 - GA:39w2d 04/01/2025 - 39w2d - Brionna Monsalve MD Post Progress Note Subjective Patient reports doing well. Feeling less cramping than yesterday. Pain: Well controlled Diet: Tolerating regular diet. Ambulating independently Voiding spontaneously Lochia less than menses Scheduled Medications docusate sodium, 100 mg, oral, BID ferrous sulfate, 325 mg, oral, Daily polyethylene glycol, 17 g, oral, Daily viatmin, 1 tablet, oral, Daily sodium chloride 0.9%, 0.5-20 mL, intra-catheter, Q8H SULEIMAN (ALT) PRN Medications acetaminophen benzocaine-menthoL calcium carbonate sodium chloride 0.9% ibuprofen kskufzn-iryez-uergspz naloxone ondansetron ODT OR ondansetron simethicone sodium chloride 0.9% Tdap varicella zoster Vitals: Temp: [36.7 C (98 F)-37.1 C (98.7 F)] 36.9 C (98.4 F) Pulse: [65-93] 93 BP: (109-123)/(55-63) 115/59 Resp: [16-20] 16 SpO2: [96 %-99 %] 99 % No intake or output data in the 24 hours ending 04/01/25 1025 Physical Exam General: No acute distress. Cardiovascular: Regular rate and rhythm. Lungs: Non-labored. Clear to auscultation bilaterally. Abdomen: Soft, non-distended, non-tender to palpation. Fundus below umbilicus. Extremities: Warm and well-perfused. Neuro: Globally intact Recent Labs Lab Units 03/31/25 0808 03/31/25 0536 03/30/25 1326 03/30/25 0925 03/29/25 2121 03/29/25 2057 WBC K/cumm 12.24* -- -- -- -- 10.38* HEMOGLOBIN g/dL 9.2* -- -- -- -- 10.2* HEMATOCRIT % 29.2* -- -- -- -- 31.5* PLATELETS K/cumm 236 -- -- -- -- 270 POC GLUCOSE MONITOR mg/dL -- 97 99 86 < > -- < > = values in this interval not displayed. Labs: Lab Results Component Value Date ABORH O Positive 03/29/2025 IDCOOMB Negative ABSC 03/29/2025 [id number] Nonreactive 01/09/2025 LABRPR Nonreactive 03/29/2025 RUBELIGG Reactive 09/14/2024 HEPBSAG Nonreactive 09/14/2024 GBS Negative 03/07/2025 Delivery Date/Time: 03/30/2025t 12:16 PM Delivery method: Vaginal [[id number]] Obstetrical/Medical Problems: Medical Conditions Diagnosis Gastroesophageal reflux disease Obesity Mild persistent asthma without complication Pre-existing type 2 diabetes mellitus during in third trimester BMI 40 History of iron deficiency anemia Supervision of high-risk , third trimester Asthma affecting in third trimester Sickle cell trait Cyst of ovary, left Encounter for induction of labor Assessment and Plan 24 y.o. PPD#2 s/p Post # ID: Afebrile. No signs/symptoms of infection. # Heme: EBL 300 mL. No symptoms acute blood loss anemia. # CV/Pulm: Vital signs stable, within normal limits. # GI/: Tolerating PO. Voiding spontaneously. # Pain: Controlled with above regimen. # MOC: Undecided. # MOF: . # Type 2 DM dx early : fasting BS 97, controlled with diet. Plan for 2 hr GTT or HBA1C pp. # Post DVT prophylaxis: SCDs ordered for VTE prophylaxis. # Disposition: Discharge to home later today. Brionna Monsalve MD 03/31/2025 - 39w2d - Brionna Monsalve MD Post Progress Note Subjective Patient reports doing okay. Reports having a small blood clot come out this am. Some abdominal cramping. Pain: Well controlled Diet: Tolerating regular diet. Ambulating independently Voiding spontaneously Lochia less than menses Scheduled Medications docusate sodium, 100 mg, oral, BID ferrous sulfate, 325 mg, oral, Daily polyethylene glycol, 17 g, oral, Daily viatmin, 1 tablet, oral, Daily sodium chloride 0.9%, 0.5-20 mL, intra-catheter, Q8H SULEIMAN (ALT) PRN Medications acetaminophen benzocaine-menthoL calcium carbonate sodium chloride 0.9% ibuprofen gybjlvv-pnlby-emgwavg naloxone ondansetron ODT OR ondansetron sodium chloride 0.9% Tdap varicella zoster Vitals: Temp: [36.6 C (97.9 F)-37.4 C (99.3 F)] 36.9 C (98.4 F) Pulse: [51-133] 73 BP: (96-129)/(54-89) 96/54 Resp: [18-20] 20 SpO2: [70 %-100 %] 98 % Intake/Output Summary (Last 24 hours) at 03/31/2025 0922 Last data filed at 03/30/2025 1940 Gross per 24 hour Intake -- Output 3300 ml Net -3300 ml Physical Exam General: No acute distress. Cardiovascular: Regular rate and rhythm. Lungs: Non-labored. Clear to auscultation bilaterally. Abdomen: Soft, non-distended, non-tender to palpation. Fundus below umbilicus. Extremities: Warm and well-perfused. Neuro: Globally intact Recent Labs Lab Units 03/31/25 0536 03/30/25 1326 03/30/25 0925 03/29/25212003/29/252056 WBC K/cumm -- -- -- -- 10.38* HEMOGLOBIN g/dL -- -- -- -- 10.2* HEMATOCRIT % -- -- -- -- 31.5* PLATELETS K/cumm -- -- -- -- 270 POC GLUCOSE MONITOR mg/dL 97 99 86 < > -- < > = values in this interval not displayed. Labs: Lab Results Component Value Date ABORH O Positive 03/29/2025 IDCOOMB Negative ABSC 03/29/2025 [id number] Nonreactive 01/09/2025 LABRPR Nonreactive 03/29/2025 RUBELIGG Reactive 09/14/2024 HEPBSAG Nonreactive 09/14/2024 GBS Negative 03/07/2025 Delivery Date/Time: 03/30/2025t 12:16 PM Delivery method: Vaginal [[id number]] Obstetrical/Medical Problems: Medical Conditions Diagnosis Gastroesophageal reflux disease Obesity Mild persistent asthma without complication Pre-existing type 2 diabetes mellitus during in third trimester BMI 40 History of iron deficiency anemia Supervision of high-risk , third trimester Asthma affecting in third trimester Sickle cell trait Cyst of ovary, left Encounter for induction of labor Assessment and Plan 24 y.o. PPD#1 s/p Post # ID: Afebrile. No signs/symptoms of infection. # Heme: EBL 300 mL. No symptoms acute blood loss anemia. # CV/Pulm: Vital signs stable, within normal limits. # GI/: Tolerating PO. Voiding spontaneously. # Pain: Controlled with above regimen. # MOC: Undecided . # MOF: . # Type 2 DM dx early : fasting BS 97, controlled with diet. Plan for 2 hr GTT or HBA1C pp. # Post DVT prophylaxis: SCDs ordered for VTE prophylaxis. # Disposition: Continue routine care. Brionna Monsalve MD 03/30/2025 - 39w2d - Cecelia Johnson i, CNM Labor Progress Note 24 y.o. at 39w2d BP 111/61 Pulse 69 Temp 36.6 C (97.9 F) (Oral) Resp 18 LMP 06/28/2024 SpO2 100% Temp: [36.6 C (97.9 F)-36.7 C (98 F)] Pulse: [61-119] Resp: [18] BP: (92-125)/(51-77) Monitoring: Heart Rate Mode: FSE Baseline Rate 135 Variablility: Moderate 6-25 Accelerations, none Decelerations: Variables FHR Category: 2 Uterine Activity: Uterine Activity Mode: IUPC Contraction Frequency (minutes): 1.5-2.5 Contraction Duration (seconds): 60-120 Contraction Quality: Strong Resting Tone Palpated: Soft [place] units: 299 Cervical Exam: Dilation/Effacement/Station Dilation (cm): 6.5 Eff %: 100 Stn: -1 Membrane Status: Artificial Rupture Date: 03/30/25 Rupture Time: 0850 Fluid Color: Clear Labs: Recent Labs Lab Units 03/30/25 0925 03/30/25 0728 03/30/25 0534 03/29/25212003/29/252056 WBC K/cumm -- -- -- -- 10.38* HEMOGLOBIN g/dL -- -- -- -- 10.2* HEMATOCRIT % -- -- -- -- 31.5* PLATELETS K/cumm -- -- -- -- 270 POC GLUCOSE MONITOR mg/dL 86 84 94 < > -- < > = values in this interval not displayed. Assessment and Plan 24 y.o. at 39w2d Problem Encounter for Induction of Labor 03/29/2025, 21:30 (Lisa): 24-year-old admitted at 39 [...] 1 SVE and membrane sweep with consent: /-2, soft, posterior Pitocin infusing at 2 mu/hr - titrate per protocol Pain management per pt wishes - desires epidural AROM once comfortable with epidural Continue IOL 03/30/2025, 0900 (JF): VSS, AF FHT Cat 2 - VD after epidural placement, resolved with repositioning Comfortable with epidural SVE and AROM with consent: /-2, clear fluid IUPC placed with consent Pitocin infusing at 2 mu/hr - continue per protocol 03/30/2025 1109 (CZ) VSS, afebrile FHT cat 2 - recurrent variable decels. FSE placed with patient consent. SVE 6.5/100/-1 Pitocin @4 mu/hr - discontinued due to tracing Plan to restart if needed for spacing contractions or inadequate MVU's Anesthesia to bedside for epidural bolus. Cecelia Ayoub CNM 03/30/2511:14 AM 03/30/2025 - 39w2d - Marisol Aguirre CNM Labor Update Note S: Patient s/p epidural and comfortable O: BP 95/54 Pulse 85 Temp 36.7 C (98 F) (Oral) Resp 18 LMP 06/28/2024 SpO2 100% SVE: /-2 Monitoring: Baseline: 130 bpm, Variability: Moderate, Accelerations: Present and Decelerations: Yes, VD Uterine Activity: Irregular contractions A/P: 24 y.o. at 39w2d Problem Encounter for Induction of Labor 03/29/2025, 21:30 (Lisa): 24-year-old admitted at 39 [...] 1 SVE and membrane sweep with consent: 2, soft, posterior Pitocin infusing at 2 mu/hr - titrate per protocol Pain management per pt wishes - desires epidural AROM once comfortable with epidural Continue IOL Pre-Existing Type 2 Diabetes Mellitus During in Third Trimester History & Counselind Diagnosed age 24 History [...] cervical ripening, then increase frequency 03/29/2025, 0710 (ROMEO): BG wnl Accu checks q 2 hrs until active then hourly Marisol Aguirre CNM 03/30/2025 - 39w2d - Marisol Aguirre CNM Labor Update Note S: Patient feeling painful contractions O: BP 124/76 Pulse 77 Temp 36.7 C (98 F) (Oral) Resp 18 LMP 06/28/2024 SpO2 99% SVE: 4 /50 /-2 Monitoring: Baseline: 135 bpm, Variability: Moderate, Accelerations: Present and Decelerations: None Uterine Activity: Contractions present, q1-2 minutes A/P: 24 y.o. at 39w2d Problem Encounter for Induction of Labor 03/29/2025, 21:30 (Lisa): 24-year-old admitted at 39 [...] 1 SVE and membrane sweep with consent: /-2, soft, posterior Pitocin infusing at 2 mu/hr - titrate per protocol Pain management per pt wishes - desires epidural AROM once comfortable with epidural Continue IOL Pre-Existing Type 2 Diabetes Mellitus During in Third Trimester History & Counselind Diagnosed age 24 History [...] cervical ripening, then increase frequency 03/29/2025, 0710 (ROMEO): BG wnl Accu checks q 2 hrs until active then hourly Marisol Aguirre CNM Progress Notes - Procedure v isit - 03/23/2025 - GA:38w2d 03/23/2025 - 38w2d - Brionna Monsalve MD Return OB Visit 24 y.o. at 38w2d Having pressure related discomfort, but denies contractions, bloody show, leaking fluid. Baby is active. Blood glucose remains adequately controlled with diet change only. Objective BP 120/68 Ht 152.4 cm (5') Wt 207 lb 3.2 oz (94 kg) LMP 06/28/2024 BMI 40.47 kg/m TWG: -6 lb 12.8 oz (-3.084 kg) NST: 125 mod variability +accels no decels [place] quiet Reactive NST Cervix 1.5 external/FT internal long/high. Assessment/Plan: Would like to consider moving up IOL as she is uncomfortable. BS well controlled. Surveillance of EDC by LMP = 8 week US O+/I/-/-, HIV and RPR NR Genetics: NIPT low risk 09/14 Anatomy: (11/24) with MFM, complete, posterior placenta, EFW 41% 3rd trim 10.8/33.9, NR/NR GBS: negative 03/07 Social Barriers: none Mode of feeding: breast/pumping, encouraged breast feeding classes Method of contraception: undecided Delivery Planning: IOL 04/01 PM Pain management: epidural Support: mom, partner, partner's mother [place] Asthma: Albuterol inhaler prn Sickle trait: Urine Cx q trimester, 3T negative 02/23 Morbid Obesity (BMI 41): weekly testing at 34 weeks, s/p anesthesia consult 03/09 T2DM Early GCT 222, A1c 6.6 MFM co-management Regimen: diet control, dASA Serial Donato: (01/19) 45%ile, (/) 34% Twice weekly testing Brionna Monsalve MD Progress Notes - Procedure v isit - 03/20/2025 - GA:37w6d 03/20/2025 - 37w6d - Elina Varela MA Jourdanvianey Raman is 37w6d here today for NST only with an Estimated Date of Delivery: 04/04/25 Diagnosis: Pre-existing type 2 diabetes mellitus during in third trimester Time on monitor: 9:15AM Time off monitor: 9:43AM Progress Notes - Office Visi t - 03/16/2025 - GA:37w2d 03/16/2025 - 37w2d - Codi Ramirez MD Images from the original note were not included. MFM Return Consult Visit 03/16/[address] Gonzalez, It was a pleasure meeting again with our mutual patient in continued consultation. ID: Jourdan Raman is a 24 y.o. at 37w2d who is here for a return OB visit. Her is complicated by T2DM, SCT, and BMI 40. Subjective: She denies vaginal bleeding and leakage of fluid. She reports some contractions. Denies headaches, vision changes, and RUQ pain. Denies abnormal discharge or dysuria. Good movement. She felt a little SOB yesterday but does not feel that today. Reports asthma symptoms are well controlled. Objective: BP 117/75 Pulse 100 Temp 36.3 C (97.4 F) Resp 16 Ht 152.4 cm (5') Wt 206 lb 6.4 oz (93.6 kg) LMP 06/28/2024 SpO2 100% BMI 40.31 kg/m General: NAD Lungs: Normal work of breathing on room air Extremities: WWP, 1+ edema Pelvic: Normal appearing external genitalia, SVE closed/long/high Supervisor Rubber Covering (for pelvic portion): Roxanne Booker RN Glucose Review: Ultrasound 03/16/2025: IUP at 37w 2d who presents for growth assessment. EFW at the 69%ile, abdominal circumference at the 91%ile. The amniotic fluid volume is normal. BPP is 6 our of 8 with points off for lack of sustained breathing movements. NST for equivocal BPP and MFM visit to follow. NST: Baseline 140, moderate variability, present accelerations, absent decelerations [place]: no contractions Assessment/Recommendations: Jourdan Raman is a 24 y.o. at 37w2d with a complicated by T2DM, SCT, and BMI 40. Pre-existing type 2 diabetes mellitus during in third trimester Review of glycemic control notable for fasting [...] continue weekly for BMI) [x] Delivery at [id number] ([id number] with vascular complications or poorly controlled) - with primary OB BMI 40 BPP 6/8, NST reactive for complete score of 8/10. Reassuring. Recommendations [x] Early screening for overt diabetes- T2DM [x] Specialized anatomy ultrasound [x] Serial growth ultrasounds q4 weeks starting at 24 weeks - completed 03/16/2025, AGA [] Weekly testing starting at 34 weeks given BMI of 40+ - ongoing with primary OB Asthma affecting in third trimester Reports asthma symptoms are well controlled. - Current regimen: albuterol PRN Recommendations [] Monitor symptoms every visit Sickle cell trait Jourdan has a history of sickle cell trait. Discussed risk of inheritance in fetus. Reports FOB negative for trait. Recommendations [x] Urine culture every trimester [x] 1st trimester [x] 2nd trimester [x] 3rd trimester - 02/23/25 Supervision of high-risk , third trimester Patient of Dr. Gonzalez. Reviewed 06/24 total for combined NST/BPP today which is considered reassuring. Plans for delivery with Dr. Gonzalez's group. No further MFM visits are indicated. SVE performed - closed/long/high. This visit was performed with Dr. Joan Hawthorne MD PGY-5. Thank you again for allowing us to participate in the care of your patient. Please do not hesitate to contact our office if you have further questions. Sincerely, Codi Ramirez MD Document Examiner Division of Maternal- Medicine and Ultrasound Department of Obstetrics and Gynecology [facility] 03/16/2025 This patient has 2 or more stable chronic illnesses. I personally reviewed results of 2 unique tests and reviewed 3+ external notes from unique sources. Progress Notes - Procedure v isit - 03/09/2025 - GA:36w2d 03/09/2025 - 36w2d - Brionna Monsalve MD NST only, T2DM Baseline 135 mod variability +accels no decels Infrequent contractions Reactive NST. Brionna Monsalve MD 03/09/2025 - 36w2d - Valeria Mota, CHRISTINE Jourdan Raman is 36w2d here today for NST only with an Estimated Date of Delivery: 04/04/25 Diagnosis: T2DM Time on monitor: 1400 Time off monitor: 1450 Progress Notes - Procedure v isit - 03/07/2025 - GA:36w0d 03/07/2025 - 36w0d - Bhaskar Gonzalez MD Return OB Visit 24 y.o. at 36w0d Having pressure related discomfort, but denies contractions, bloody show, leaking fluid. Baby is active. Blood glucose remains adequately controlled with diet change only. Objective BP 122/68 Ht 152.4 cm (5') Wt 206 lb 9.6 oz (93.7 kg) LMP 06/28/2024 BMI 40.35 kg/m TWG: -7 lb 6.4 oz (-3.357 kg) NST 150, reactive, no decelerations. The tocometer shows uterine irritability. Assessment/Plan: Counseled regarding rationale for GBS screening, specimen collected. Anesthesia consult scheduled in 2 days Surveillance of EDC by LMP = 8 week US O+/I/-/-, HIV and RPR NR Genetics: NIPT low risk 09/14 Anatomy: (11/24) with MFM, complete, posterior placenta, EFW 41% 3rd trim 10.8/33.9, NR/NR GBS: Collected 03/07 Social Barriers: none Mode of feeding: breast/pumping, encouraged breast feeding classes Method of contraception: undecided Delivery Planning: IOL 04/01 PM Pain management: epidural Support: mom, partner, partner's mother [place] Asthma: Albuterol inhaler prn Sickle trait: Urine Cx q trimester, 3T negative 02/23 Morbid Obesity (BMI 41): weekly testing at 34 weeks, anesthesia consult scheduled 03/09 T2DM Early GCT 222, A1c 6.6 MFM co-management Regimen: diet control, dASA Serial Donato: (01/19) 45%ile, (/) 34% Twice weekly testing Bhaskar Gonzalez MD Progress Notes - Procedure v isit - 03/02/2025 - GA:35w2d 03/02/2025 - 35w2d - Jax Carver MD NST - reactive For T2DM in . Jax Carver MD Progress Notes - Procedure v isit - 02/28/2025 - GA:35w0d 02/28/2025 - 35w0d - Jax Carver MD Return OB Visit 24 y.o. at 35w0d Patient reports no acute concerns Endorses active movement Denies vaginal bleeding, LOF or painful contractions Objective BP 110/60 Ht 152.4 cm (5') Wt 205 lb 3.2 oz (93.1 kg) LMP 06/28/2024 BMI 40.08 kg/m Body mass index is 40.08 kg/m . TWG: -8 lb 12.8 oz (-3.992 kg) Heart Rate: BPP 06/22 Assessment/Plan: Surveillance of EDC by LMP = 8 week US O+/I/-/-, HIV and RPR NR Genetics: NIPT low risk 09/14 Anatomy: (11/24) with MFM, complete, posterior placenta, EFW 41% 3rd trim 10.8/33.9, NR/NR Tdap: 01/09 EPDS: GBS: 36 weeks, or sooner if early delivery indicated Social Barriers: none Mode of feeding: breast/pumping, encouraged breast feeding classes Method of contraception: undecided Delivery Planning: IOL 04/01 PM Pain management: epidural Support: mom, partner, partner's mother [place] Asthma: Albuterol inhaler prn Sickle trait: Urine Cx q trimester, 3T sent 02/23 Morbid Obesity (BMI 41): weekly testing at 34 weeks, anesthesia consult T2DM Early GCT 222, A1c 6.6 MFM co-management Regimen: diet control, dASA Serial Donato: (3/7) 45%ile, (4/4) 34% Twice weekly testing RTC in 1wks Jax Carver MD Progress Notes - Procedure v isit - 02/23/2025 - GA:34w2d 02/23/2025 - 34w2d - Bri Oh MD Return OB Visit 24 y.o. at 32w2d Had a fall from standing this AM, hit her knee and elbow first and then was on the right side of her body, no direct belly trauma No bleeding or LOF Active movement Objective BP 122/60 Ht 152.4 cm (5') Wt 205 lb (93 kg) LMP 06/28/2024 BMI 40.04 kg/m Body mass index is 40.04 kg/m . TWG: -9 lb (-4.082 kg) NST - reassuring and reactive Assessment/Plan: - reviewed recommendation for IOL during 39th week in the setting of T2DM, she would like to schedule for 04/01 PM - anesthesia consult requested - reviewed that as she did not have direct abdominal trauma and fell from standing, okay for NST here in clinic. PTL, pain and ROM precautions given Surveillance of EDC by LMP = 8 week US O+/I/-/-, HIV and RPR NR Genetics: NIPT low risk 09/14 Anatomy: (11/24) with MFM, complete, posterior placenta, EFW 41% 3rd trim 10.8/33.9, NR/NR Tdap: 01/09 EPDS: GBS: 36 weeks, or sooner if early delivery indicated Social Barriers: none Mode of feeding: breast/pumping, encouraged breast feeding classes Method of contraception: undecided Delivery Planning: IOL 04/01 PM Pain management: epidural Support: mom, partner, partner's mother [place] Asthma: Albuterol inhaler prn Sickle trait: Urine Cx q trimester, 3T sent 02/23 Morbid Obesity (BMI 41): weekly testing at 34 weeks, anesthesia consult T2DM Early GCT 222, A1c 6.6 MFM co-management Regimen: diet control, dASA Serial Donato: (01/19) 45%ile, (/) 34% Twice weekly testing RTC in 1wks Alla Oh MD Progress Notes - Procedure v isit - 02/20/2025 - GA:33w6d 02/20/2025 - 33w6d - Caroline Lemus MA Patient is 33wks 6d. Patient came into office for Non Stress Test due to T2DM. Patient BP was 118/70. Patient was hooked up to NST machine at 10:08am and was unhooked from machiene at 10:34am. NST tracing was reviewed by provider and patient was notified. Patient and baby tolerated well. Progress Notes - Office Visi t - 02/16/2025 - GA:33w2d 02/16/2025 - 33w2d - Carmen Serrano MD Images from the original note were not included. MFM Return Consult Visit 02/26/2025 Dear Provider It was a pleasure meeting again with our mutual patient in continued consultation. Jourdan Raman is a 24 y.o. at 33w2d by who is comanaged with Dr. Gonzalez. Her is complicated by T2DM, SCT, obesity Subjective: She reports feeling well. Denies vaginal bleeding, loss of fluid, contractions. Reports positive movement. Remains controlled on no medications. Objective: BP 115/57 Pulse 91 Temp 36.8 C (98.2 F) Resp 16 Ht 152.4 cm (5') Wt 203 lb 6.4 oz (92.3 kg) LMP 06/28/2024 SpO2 98% BMI 39.72 kg/m General: alert, cooperative, in no distress Heart: regular rate Lungs: non-labored respirations Abdomen: gravid Extremities: warm and well-perfused Ultrasound: IMPRESSION: Normal biometry 2099 g at 34%and amniotic fluid 15.2 cm. The biophysical profile is 8/8 with normal breathing motion, body motion, tone and amniotic fluid volume. Please see report for full details. Assessment/Plan: Jourdan Raman is a 24 y.o. at 33w2d with a complicated by the following: Problem List DERRELL 04/04/25 Sickle cell trait Overview Jourdan has a history of sickle cell trait. Discussed risk of inheritance in fetus. Reports FOB negative for trait. Recommend urine culture every trimester. Plan: [] Follow-up records from [place] [] Urine culture every trimester [x] 1st trimester [x] 2nd trimester [] 3rd trimester Pre-existing type 2 diabetes mellitus during in second trimester - Primary Overview History Diagnosed age 24 History of DKA? no Last hemoglobin A1C: 6.6% on 09/14/24 Pre- regimen: none (dx this ) Pre- weight: 97 kg Previously counseled Current regimen: 02/26/2025 no changes - encouraged after dinner values be taken consistently Diet control Encouraged testing 4 times per day Physician adjusting insulin dosage: MFM Counseling performed [] Diabetes education referred, encouraged she schedule [x] Recommend weekly review of BG/insulin data to adjust insulin dosing - Sathish MFM to do via [facility] [] Glucagon prescribed - if medication [x] Referral to ophthalmology for comprehensive eye exam - has had exam in past year [x] Baseline CMP, UPC - wnl [] A1c qTrimester [x] ASA starting at 12 weeks gestation ordered [] Baseline EKG [x] Specialized anatomy [x] echocardiogram- wnl [] Serial growth scans starting at 24 weeks- ongoing [] Twice weekly testing starting at 32 weeks pending medications [] insulin plan by 32 weeks [] Delivery at 39 0/7-39 6/7. 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 Would feel comfortable starting without a visit. She is allergic to metformin (diarrhea). Obesity affecting in first trimester Overview BMI: 44, previously counseled Plan [x] Early screening for overt diabetes- T2DM [x] Specialized anatomy ultrasound [] Serial growth ultrasounds q4 weeks starting at 24 weeks- ongoing [] Weekly testing starting at 34 weeks given BMI of 40+ Cyst of ovary, left Overview 10/02/24 2 cm, simiple, ORADS-2 Plan: Continue to monitor on follow-up ultrasounds Asthma affecting in second trimester Overview - Severity classification: mild intermittent - Previously counseled Current regimen: albuterol PRN Plan [] Monitor symptoms every visit [] Serial growth scans and twice weekly NSTs if moderate persistent severe persistent [] PFTs if if severe persistent Thank you again for allowing us to participate in the care of your patient, please do not hesitate to contact our office if you have further questions. Sincerely, Carmen Serrano MD Maternal Medicine [employer] Progress Notes - Procedure v isit - 02/09/2025 - GA:32w2d 02/09/2025 - 32w2d - Jax Carver MD Return OB Visit 24 y.o. at 32w2d Patient reports no acute concerns Endorses active movement Denies vaginal bleeding, LOF or painful contractions Objective BP 108/62 Ht 152.4 cm (5') Wt 205 lb (93 kg) LMP 06/28/2024 BMI 40.04 kg/m Body mass index is 40.04 kg/m . TWG: -9 lb (-4.082 kg) Heart Rate: NST-R Assessment/Plan: Surveillance of EDC by LMP = 8 week US O+/I/-/-, HIV and RPR NR Genetics: NIPT low risk 09/14 Anatomy: (11/24) with MFM, complete, posterior placenta, EFW 41% GTT: T2DM 3rd trim 10.8/33.9, NR/NR Tdap: 01/09 EPDS: GBS: 36 weeks, or sooner if early delivery indicated Social Barriers: none Mode of feeding: breast/pumping, encouraged breast feeding classes Method of contraception: was thinking BTL - but changed her mind - discussed LARCS - pt undecided at this time (02/09) Delivery Planning: TBD [place] Asthma: Albuterol inhaler prn Sickle trait - urine culture q trimester T2DM Early GCT 222, A1c 6.6 dASA S/p MFM referral (10/02) Regimen: diet control Serial Donato: (01/19) 45%ile Twice weekly NST at 32 weeks - scheduled Morbid Obesity: initial BMI 44.31 RTC in 1wks Jax Carver MD Progress Notes - Procedure v isit - 02/06/2025 - GA:31w6d 02/06/2025 - w6d - Brionna Monsalve MD NST only Type 2 DM Baseline 135 mod variability +accels no decels Irregular contractions. Reactive NST. Brionna Monsalve MD 02/06/2025 - w6d - Elina Varela MA Jourdan Raman is 31w6d here today for NST only with an Estimated Date of Delivery: 04/04/25 Diagnosis: T2DM Time on monitor: 9:51 Time off monitor: 10:31 Progress Notes - Office Visi t - 01/26/2025 - GA:30w2d 01/26/2025 - 30w2d - Marisol Aguirre CNM Return OB Visit 24 y.o. at 30w2d Pt reports doing well overall. Tracking BGs - MFM managing. Reports lower extremity swelling at the end of the day Denies contractions, leaking of fluid and vaginal bleeding Endorses good movements Objective BP 108/62 Ht 152.4 cm (5') Wt 205 lb 9.6 oz (93.3 kg) LMP 06/28/2024 BMI 40.15 kg/m TWG: -8 lb 6.4 oz (-3.81 kg) FHT 156 LE: bilateral trace edema Assessment and Plan -- discussed testing starting at 32 weeks -- reviewed normal LE swelling and warning signs. Recommend increased hydration, elevating legs and compression socks -- reviewed PTL precautions, FKCs and when to present to [facility] Surveillance of EDC by LMP = 8 week US O+/I/-/-, HIV and RPR NR Genetics: NIPT low risk 09/14 Anatomy: (11/24) with MFM, complete, posterior placenta, EFW 41% GTT: T2DM 3rd trim 10.8/33.9, NR/NR Tdap: 27+ weeks EPDS: GBS: 36 weeks, or sooner if early delivery indicated Social Barriers: none Mode of feeding: breast/pumping, encouraged breast feeding classes Method of contraception: desires BTL, needs to speak with MD Delivery Planning: TBD [place] Asthma: Albuterol inhaler prn Sickle trait - urine culture q trimester T2DM Early GCT 222, A1c 6.6 dASA S/p MFM referral (10/02) Regimen: diet control Serial Donato: (01/19) 45%ile Twice weekly NST at 32 weeks - scheduled Morbid Obesity: initial BMI 44.31 Marisol Aguirre CNM Progress Notes - Office Visi t - 01/19/2025 - GA:29w2d 01/19/2025 - 29w2d - Lizet Diamond MD MFM Return Visit 01/19/2025 Jourdan Raman is a 24 y.o. at 29w2d who is here for a return OB visit. Her is complicated by T2DM, obesity, asthma and sickle cell trait. Subjective: Feels well today. She denies contractions, loss of fluid, or vaginal bleeding and reports good movement. She currently does not do a bedtime snack. Objective: BP 105/74 Pulse 89 Temp 36.1 C (97 F) Resp 16 Ht 152.4 cm (5') Wt 204 lb 12.8 oz (92.9 kg) LMP 06/28/2024 SpO2 100% BMI 40.00 kg/m General: NAD Abdomen: Gravid Ultrasound: AGA- see finalized US report Assessment/Plan: Jourdan Raman is a 24 y.o. at 29w2d with a complicated by the following: Pre-existing type 2 diabetes mellitus during in second trimester History Diagnosed age 24 History of DKA? no Last hemoglobin A1C: 6.6% on 09/14/24 Pre- regimen: none (dx this ) Pre- weight: 97 kg Previously counseled Current regimen: 01/19/2025- no changes - encouraged after dinner values be taken consistently Diet control Encouraged testing 4 times per day Repeat growth in 4 weeks Obesity affecting in first trimester BMI: 44, previously counseled Plan [x] Early screening for overt diabetes- T2DM [x] Specialized anatomy ultrasound [] Serial growth ultrasounds q4 weeks starting at 24 weeks- ongoing [] Weekly testing starting at 34 weeks given BMI of 40+ Sickle cell trait Jourdan has a history of sickle cell trait. Discussed risk of inheritance in fetus. Reports FOB negative for trait. Recommend urine culture every trimester. Plan: [] Follow-up records from [place] [] Urine culture every trimester [x] 1st trimester [x] 2nd trimester [] 3rd trimester Thank you for allowing me to participate in the care of this esthela patient. If you have any questions or concerns do not hesitate to contact our office. Lizet Diamond MD, PhD Maternal Medicine SAFETY MANAGER Progress Notes - Office Visi t - 01/09/2025 - GA:27w6d 01/09/2025 - w6d - Bhaskar Gonzalez MD Return OB Visit 24 y.o. at 27w6d Denies bleeding, abnormal discharge, contractions. Baby is very active. Patient completed her routine 3rd trimester blood draw today, results pending. Objective BP 112/58 Ht 147.3 cm (4' 9.99 ) Wt 206 lb 9.6 oz (93.7 kg) LMP 06/28/2024 BMI 43.19 kg/m TWG: -7 lb 6.4 oz (-3.357 kg) FHR 150 Assessment and Plan Return as scheduled Surveillance of EDC by LMP = 8 week US O+/I/-/-, HIV and RPR NR Genetics: NIPT low risk 09/14 Anatomy: (11/24) with MFM, complete, posterior placenta, EFW 41% GTT: T2DM 3rd trim CBC/HIV/RPR Tdap: 27+ weeks GBS: 36 weeks, or sooner if early delivery indicated Social Barriers: none Mode of feeding: breast/pumping, encouraged breast feeding classes Method of contraception: desires BTL, needs to speak with MD Delivery Planning: TBD [place] Asthma: Albuterol inhaler prn Sickle trait - urine culture q trimester T2DM Early GCT 222, A1c 6.6 dASA S/p MFM referral (10/02) Regimen: diet control Morbid Obesity initial BMI 44.31 Serial growth testing @ 34 wks Bhaskar Gonzalez MD SAFETY MANAGER Progress Notes - Office Visi t - 12/22/2024 - GA:25w2d 12/22/2024 - w2d - Fabiola Joe NP Dear Dr. Gonzalez, It was a pleasure meeting again with our mutual patient in continued consultation. MFM Return Visit 12/22/2024 Jourdan Raman is a 24 y.o. at 25w2d who is here for a return OB visit. Her is complicated by T2DM, obesity, asthma and sickle cell trait. Subjective: Feels well today. She denies contractions, loss of fluid, or vaginal bleeding and reports good movement. She does not tolerate metformin. She currently does not do a bedtime snack. Objective: BP 113/74 Pulse 61 Temp 36.1 C (97 F) Resp 16 Ht 147.3 cm (4' 10 ) Wt 206 lb (93.4 kg) LMP 06/28/2024 SpO2 99% BMI 43.05 kg/m General: NAD Abdomen: Soft, gravid, NT, FHR + Ultrasound: AGA- see finalized US report Assessment/Plan: Jourdan Raman is a 24 y.o. at 25w2d with a complicated by the following: Problem List DERRELL 04/04/25 Asthma affecting in second trimester - Primary Overview - Severity classification: mild intermittent - Previously counseled Current regimen: albuterol PRN Plan [] Monitor symptoms every visit [] Serial growth scans and twice weekly NSTs if moderate persistent severe persistent [] PFTs if if severe persistent Cyst of ovary, left Overview 10/02/24 2 cm, simiple, ORADS-2 Plan: Continue to monitor on follow-up ultrasounds Obesity affecting in first trimester Overview BMI: 44, previously counseled Plan [x] Early screening for overt diabetes- T2DM [x] Specialized anatomy ultrasound [] Serial growth ultrasounds q4 weeks starting at 24 weeks- ongoing [] Weekly testing starting at 34 weeks given BMI of 40+ Pre-existing type 2 diabetes mellitus during in second trimester Overview History Diagnosed age 24 History of DKA? no Last hemoglobin A1C: 6.6% on 09/14/24 Pre- regimen: none (dx this ) Pre- weight: 97 kg Previously counseled Current regimen: 12/22/2024- recommend bedtime snack, if fastings remain elevated next week plan to start insulin, pt does not tolerate metformin Diet control Encouraged testing 4 times per day Physician adjusting insulin dosage: MFM Counseling performed [] Diabetes education referred 10/02/24, encouraged she schedule [x] Recommend weekly review of BG/insulin data to adjust insulin dosing - Sathish GRANTM to do via [employer] [] Glucagon prescribed - if medication [x] Referral to ophthalmology for comprehensive eye exam - has had exam in past year [x] Baseline CMP, UPC - wnl 10/02/2024 [] A1c qTrimester [x] ASA starting at 12 weeks gestation ordered 10/02/24 [] Baseline EKG [x] Specialized anatomy [x] echocardiogram- wnl [] Serial growth scans starting at 24 weeks- ongoing [] Twice weekly testing starting at 32 weeks pending medications [] insulin plan by 32 weeks [] Delivery at 39 0/7-39 6/7. 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 Would feel comfortable starting without a visit. She is allergic to metformin (diarrhea). Sickle cell trait (CMS/HCC) (HCC) Overview Jourdan has a history of sickle cell trait. Discussed risk of inheritance in fetus. Reports FOB negative for trait. Will request records from [facility] for carrier screening. Recommend urine culture every trimester. Plan: [] Follow-up records from [facility] [] Urine culture every trimester [x] 1st trimester [] 2nd trimester- sent 11/24/2024 [] 3rd trimester Supervision of high-risk , second trimester Overview [x] Co-management [x] Blue Team Referring Provider: Barb Wong [phone] [] or Medicare Insurance [x] Dating Criteria: LMP 06/28/24 with DERRELL 04/04/25 [x] Labs: Rh [O+], Ab [negative], Rubella [immune], HIV [non-reactive], HepBSAg [non-reactive], RPR [non-reactive], Hep C [non-reactive], Varicella [not done], GC/CT [negative/negative] [x] Aneuploidy: NIPT low risk [] Carrier Screening: request from [facility] [x] CBC/Hgb: 13.0/39.2/plt 295 [] Early 1hr GTT 09/14/24: GTT 222, A1c 6.6 [x] UCx: 09/14/24: negative, 10/02/24 negative [x] Pap: 04/23/22: NILM [] Flu Shot (Jul-Oct): reviewed risks of maternal and and pt declines [] COVIDa; reviewed risks of maternal and and pt declines [] LD ASA (if indicated) [] EPDS [ ]; PNBHS referral (if indicated) 2nd Tri Labs: [x] Anatomy ultrasound: complete and wnl [x] CBC 24-28wks [] Tdap (27-36wks): 3rd Tri Labs: [] CBC/HIV/RPR/T&S: [] GBS: [] testing: [] RSV Counseling [] MOD: [] Place of delivery: [] Last clinic visit SVE: [] IOL start agent: [] Epidural: [] Blood Products [] Consents signed: [] Stop ASA [] MOC: [] Method of feeding: [] Jira Administrator (specifically which provider): [] PP Depression Discussed: Hospital precautions reviewed. My total encounter time on 12/22/2024 was 20 minutes. 15 minutes was spent counseling the patient. 5 minutes was spent reviewing records and her US prior to the visit. This time does not include time spent in any separately reportable services. Thank you for allowing me to participate in the care of this esthela patient. If you have any questions or concerns do not hesitate to contact our office. Sincerely, KENN Degroot SAFETY MANAGER Progress Notes - Office Visi t - 12/15/2024 - GA:24w2d 12/15/2024 - 24w2d - Graeme Wong NP Return OB Visit 24 y.o. at 24w2d presents for return OB visit. Would like to discuss why Juan Jose is recommended Reports having issues with her wisdom teeth Denies VB, LOF, ctxs or other acute concerns at this time Endorses feeling good movement BG logs being sent to [facility], last reviewed on 12/11 with no changes Objective BP 94/58 Ht 147.3 cm (4' 10 ) Wt 207 lb 6.4 oz (94.1 kg) LMP 06/28/2024 BMI 43.35 kg/m TWG: -6 lb 9.6 oz (-2.994 kg) FHR 138bpm Assessment and Plan Encouraged to complete 3T labs at 28 weeks Discussed TDaP vaccine to be offered at next appointment Discussed MOF and MOC Measured for support band Provided with Dental note, encouraged to follow up with dentistry Reviewed s/s of PTL, FKCs and location of FLORA/FBC RTC in 4 weeks for [facility] appointment Surveillance of EDC by LMP = 8 week US O+/I/-/-, HIV and RPR NR Genetics: NIPT low risk 09/14 Anatomy: (11/24) with MFM, complete, posterior placenta, EFW 41% GTT: T2DM 3rd trim CBC/HIV/RPR Tdap: 27+ weeks GBS: 36 weeks, or sooner if early delivery indicated Social Barriers: none Mode of feeding: breast/pumping, encouraged breast feeding classes Method of contraception: desires BTL, needs to speak with MD Delivery Planning: TBD [place] Asthma: Albuterol inhaler prn Sickle trait - urine culture q trimester T2DM Early GCT 222, A1c 6.6 dASA S/p MFM referral (10/02) Regimen: diet control Morbid Obesity initial BMI 44.31 Serial growth testing @ 34 wks Barb Wong NP Cosigned by Bhaskar Gonzalez MD at 12/19/2024 9:49 AM FOOD SAFETY MANAGER SAFETY MANAGER SAFETY MANAGER Progress Notes - Office Visi t - 11/24/2024 - GA:21w2d 11/24/2024 - 21w2d - Fabiola Joe NP Dear Dr. Gonzalez, It was a pleasure meeting again with our mutual patient in continued consultation. MFM Return Visit 11/24/2024 Jourdan Raman is a 24 y.o. at 21w2d who is here for a return OB visit. Her is complicated by T2DM, obesity, asthma and sickle cell trait. Subjective: Feels well today. She denies cramping, loss of fluid, or vaginal bleeding. Has not yet seen diabetes education. Objective: BP 116/72 Pulse 97 Temp 36.5 C (97.7 F) (Temporal) Resp 16 Ht 147.3 cm (4' 10 ) Wt 207 lb 6.4 oz (94.1 kg) LMP 06/28/2024 SpO2 97% BMI 43.35 kg/m General: NAD Abdomen: Soft, gravid, NT, FHR + Ultrasound: anatomy complete and wnl- see finalized US report Assessment/Plan: Jourdan Raman is a 24 y.o. at 21w2d with a complicated by the following: Problem List DERRELL 04/04/25 Asthma affecting in second trimester - Primary Overview - Severity classification: mild intermittent - Previously counseled Current regimen: albuterol PRN Plan [] Monitor symptoms every visit [] Serial growth scans and twice weekly NSTs if moderate persistent severe persistent [] PFTs if if severe persistent Relevant Orders Urine culture Urine, bladder Obesity affecting in first trimester Overview BMI: 44, previously counseled Plan [x] Early screening for overt diabetes- T2DM [] Specialized anatomy ultrasound [] Serial growth ultrasounds q4 weeks starting at 24 weeks [] Weekly testing starting at 34 weeks given BMI of 40+ Pre-existing type 2 diabetes mellitus during in second trimester Overview History Diagnosed age 24 History of DKA? no Last hemoglobin A1C: 6.6% on 09/14/24 Pre- regimen: none (dx this ) Pre- weight: 97 kg Previously counseled Current regimen: 11/24/2024 Diet control Encouraged testing 4 times per day Physician adjusting insulin dosage: MFM Counseling performed [] Diabetes education referred 10/02/24, encouraged she schedule [] Recommend weekly review of BG/insulin data to adjust insulin dosing - Sathish MFM to do via [facility] [] Glucagon prescribed - if medication [x] Referral to ophthalmology for comprehensive eye exam - has had exam in past year [x] Baseline CMP, UPC - wnl 10/02/2024 [] A1c qTrimester- ordered 11/24/2024 [x] ASA starting at 12 weeks gestation ordered 10/02/24 [] Baseline EKG [x] Specialized anatomy ultrasound at 18-20 weeks [] echocardiogram- requested [] Serial growth scans starting at 24 weeks- scheduled [] Twice weekly testing starting at 32 weeks pending medications [] insulin plan by 32 weeks [] Delivery at 39 0/7-39 6/7. 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 Would feel comfortable starting without a visit. She is allergic to metformin (diarrhea). Current Assessment & Plan Reports bs well controlled at home. Continue without meds. Supervision of high-risk , second trimester Overview [x] Co-management [x] Blue Team Referring Provider: Barb Wong [phone] [] [employer] Direct or Medicare Insurance [x] Dating Criteria: LMP 06/28/24 with DERRELL 04/04/25 [x] Labs: Rh [O+], Ab [negative], Rubella [immune], HIV [non-reactive], HepBSAg [non-reactive], RPR [non-reactive], Hep C [non-reactive], Varicella [not done], GC/CT [negative/negative] [x] Aneuploidy: NIPT low risk [] Carrier Screening: request from [facility] [x] CBC/Hgb: 13.0/39.2/plt 295 [] Early 1hr GTT 09/14/24: GTT 222, A1c 6.6 [x] UCx: 09/14/24: negative, 10/02/24 negative [x] Pap: 04/23/22: NILM [] Flu Shot (Jul-Oct): reviewed risks of maternal and and pt declines [] COVIDa; reviewed risks of maternal and and pt declines [] LD ASA (if indicated) [] EPDS [ ]; PNBHS referral (if indicated) 2nd Tri Labs: [x] Anatomy ultrasound: complete and wnl [] CBC 24-28wks: ordered for today [] Tdap (27-36wks): 3rd Tri Labs: [] CBC/HIV/RPR/T&S: [] GBS: [] testing: [] RSV Counseling [] MOD: [] Place of delivery: [] Last clinic visit SVE: [] IOL start agent: [] Epidural: [] Blood Products [] Consents signed: [] Stop ASA [] MOC: [] Method of feeding: [] Jira Administrator (specifically which provider): [] PP Depression Discussed: Cyst of ovary, left Overview 10/02/24 2 cm, simiple, ORADS-2 Plan: Continue to monitor on follow-up ultrasounds Sickle cell trait (CMS/HCC) (HCC) Overview Jourdan has a history of sickle cell trait. Discussed risk of inheritance in fetus. Reports FOB negative for trait. Will request records from [facility] for carrier screening. Recommend urine culture every trimester. Plan: [] Follow-up records from [facility] [] Urine culture every trimester [x] 1st trimester [] 2nd trimester- sent 11/24/2024 [] 3rd trimester Hospital precautions reviewed. My total encounter time on 11/24/2024 was 20 minutes. 15 minutes was spent counseling the patient. 5 minutes was spent reviewing records and her US prior to the visit. This time does not include time spent in any separately reportable services. Thank you for allowing me to participate in the care of this esthela patient. If you have any questions or concerns do not hesitate to contact our office. Sincerely, KENN Degroot SAFETY MANAGER Progress Notes - Routine Pre ze - 11/17/2024 - GA:20w2d 11/17/2024 - 20w2d - Brionna Monsalve MD Return OB Visit 24 y.o. at 20w2d presents for return OB visit. No major issues. Saw primary today, got A1c level 5.7%. GDM, diet controlled. Following with MFM. Anatomy scan scheduled next week. Asthma stable, no breathing issues or use of inhaler. Objective BP 108/60 Ht 147.3 cm (4' 10 ) Wt 208 lb (94.3 kg) LMP 06/28/2024 BMI 43.47 kg/m TWG: -6 lb (-2.722 kg) +145. Assessment and Plan Anatomy scan with MFM next week. Will be for serial US given BMI. Surveillance of EDC by LMP = 8 week US O+/I/-/-, HIV and RPR NR Genetics: NIPT low risk 09/14 Anatomy: 20 weeks scheduled 11/20/2024 with MFM GTT: 26-28 weeks 3rd trim CBC/HIV/RPR Tdap: 27+ weeks GBS: 36 weeks, or sooner if early delivery indicated COVID Vaccine: Social Barriers: none Mode of feeding: Method of contraception: Delivery Planning: TBD [place] Asthma: Albuterol inhaler prn Sickle trait - urine culture q trimester T2DM Early GCT 222, A1c 6.6 dASA S/p MFM referral (10/02) Regimen: diet control Morbid Obesity initial BMI 44.31 Serial growth testing @ 34 wks Brionna Monsalve MD SAFETY MANAGER Progress Notes - Routine Pre - 10/17/2024 - GA:15w6d 10/17/2024 - 15w6d - Bhaskar Gonzalez MD Return OB Visit 24 y.o. at 15w6d Starting to perceive movement. Denies bleeding, abnormal discharge, cramping. Has been sending glucose log to [facility]. Has not required initiation of medication yet. Reports headaches every few days, f rom out of nowhere . Was advised to start taking iron, but it makes her nauseated even when taking it after eating. History of sickle trait. Initial hemoglobin 13.0. Objective BP 124/68 Ht 147.3 cm (4' 9.99 ) Wt 207 lb 4.8 oz (94 kg) LMP 06/28/2024 BMI 43.34 kg/m TWG: -6 lb 11.2 oz (-3.039 kg) FHR 150, audible movement Assessment and Plan Advised patient that she can just try to get iron through diet. If she is anemic on follow-up CBC and is unable to tolerate oral iron, we can consider iron infusions. Advised extra-strength Tylenol with a little bit of caffeine when headaches occur. Continue to send glucose log to [facility]. Surveillance of EDC by LMP = 8 week US O+/I/-/-, HIV and RPR NR Genetics: NIPT low risk 09/14 Anatomy: 20 weeks scheduled 11/20/2024 with MFM GTT: 26-28 weeks 3rd trim CBC/HIV/RPR Tdap: 27+ weeks GBS: 36 weeks, or sooner if early delivery indicated COVID Vaccine: Social Barriers: none Mode of feeding: Method of contraception: Delivery Planning: TBD [place] Asthma: Albuterol inhaler prn Sickle trait - urine culture q trimester T2DM Early GCT 222, A1c 6.6 dASA MFM referral - 10/02 Regimen: diet Morbid Obesity initial BMI 44.31 early glucose ordered testing @ 34 wks Bhaskar Gonzalez MD SAFETY MANAGER Progress Notes - Office Visi t - 10/02/2024 - GA:13w5d 10/02/2024 - wd - Elsi Zaman MD Maternal Medicine Consult Note Reason for Consult: T2DM, asthma, BMI 45 Requesting Provider: Bhaskar Gonzalez MD Dear Dr. Gonzalez, We had the pleasure of seeing your patient Jourdan Raman in our office today. As you know, she is a 24 y.o. at 13w5d here today for a consult regarding the above. Patient's history was reviewed from outside records and in detail with her during the consultation and is detailed within the respective problems listed below. Today she is doing well, she feels well. Denies contractions, bleeding, loss of fluid. Past Medical History: Diagnosis Date Abnormal ultrasound 09/11/2019 Dilated kidneys 6 - 7 mm on outside scan Anemia Asthma GERD (gastroesophageal reflux disease) Narcolepsy 2015 Past Surgical History: Procedure Laterality Date WISDOM TOOTH EXTRACTION Past Gynecologic History: Prior STIs: denies History of abnormal pap: denies Last pap smear: NSIL 04/2022 Patient's last menstrual period was 06/28/2024. Denies history of uterine anomalies or fibroids OB History Para Term AB Living 2 1 1 1 SAB IAB Ectopic Multiple Live Births 1 # Outcome Date GA Lbr Dane/2nd Weight Sex Type Anes PTL Lv 2 Current 1 Term 01/13/20 39w0d 3.26 kg (7 lb 3 oz) M Vag-Spont EPI N ADARSH Current Outpatient Medications Medication Sig Dispense Refill albuterol HFA (PROVENTIL HFA,VENTOLIN HFA,PROAIR HFA) 90 mcg/actuation inhaler Inhale 2 puffs every 6 (six) hours as needed for wheezing or shortness of breath ferrous sulfate 325 mg (65 mg of elemental iron) tablet Take 1 tablet (325 mg total) by mouth daily with breakfast 30 tablet 11 vit 24-ywev-hybel-dha 27mg iron- 800 mcg-250 mg capsule Take by mouth No current facility-administered medications for this visit. Family History: Family History Problem Relation Age of Onset Diabetes Mother Hypertension Mother No Known Problems Father No Known Problems Sister No Known Problems Brother No Known Problems Son Cervical cancer Maternal Grandmother Colon cancer Maternal Grandfather Hypertension Maternal Grandfather Breast cancer Paternal Grandmother Hypertension Paternal Grandfather No Known Problems Sister No Known Problems Sister No Known Problems Sister No Known Problems Brother Neural tube defects: No Down syndrome or other chromosomal anomalies: No Hemophilia, sickle cell, bleeding/clotting disorder: No Muscular dystrophy: No Cystic fibrosis: No Intellectual disability or Fragile X: No Madison disease: No Other defects or genetic disorders: No Allergies Allergen Reactions Metformin Diarrhea Social History Tobacco Use Smoking status: Never Smokeless tobacco: Never Substance and Sexual Activity Drug use: Not Currently Types: Marijuana Sexual activity: Yes Partners: Male control/protection: None Alcohol Use: Not At Risk (04/17/2024) AUDIT-C Frequency of Alcohol Consumption: Monthly or less Average Number of Drinks: 1 or 2 Frequency of Binge Drinking: Never 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[employer] Lives with son and 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 father Smoke cigarettes, cigars, E-cigs: No Beer, wine, or liquor: No Street drugs/marijuana: No Dating: DERRELL of Estimated Date of Delivery: 04/04/25 based on LMP c/w 8 week ultrasound Review of Systems All review of systems are negative except for as above Physical Exam Vitals BP 132/82 Pulse 95 Ht 147.3 cm (4' 10 ) Wt 212 lb (96.2 kg) LMP 06/28/2024 SpO2 98% BMI 44.31 kg/m General: NAD Cardiac: regular rate Pulm: breathing comfortably Abdomen: gravid, non-tender Extremities: trace edema Ultrasound 10/02/2024: 13w5d live IUP at 13w5d, small simple cyst of left ovary (ORADS-2) Please see the separate report for full details Assessment: Ms. Jourdan Raman is a esthela 24 y.o. at 13w5d here today for a consult regarding: Recommendations: Problem Asthma Affecting in Second Trimester - Severity classification: mild intermittent - Current regimen: albuterol PRN Reviewed with patient that asthma is a common but potentially serious medical condition characterized by chronic airway inflammation. Fortunately, well- controlled asthma is associated with excellent outcomes. Severe and poorly- controlled asthma is associated with increased risks of prematurity, need for delivery, preeclampsia, growth restriction, and maternal morbidity and even mortality. Thus, the ultimate goal for is management of asthma exacerbations and management includes monitoring of lung function, avoiding or controlling asthma triggers, and medications to maintain normal pulmonary function. The effect of asthma on is variable with approximately 30% of patients with worse symptoms in . The remainder remained stable or improved. In patients with mild asthma, exacerbation rates are low (~10%) and approximately 2% of patients require hospitalization for an exacerbation. We discussed management of asthma in and recommend assessment with peak flow measurements at visits. Serial growth ultrasounds and testing may be considered for patients with moderate or severe symptoms in , as well as referral to a lining ironer and pulmonary function testing. During delivery, recommend avoiding the use of hemabate in the event of atony. The use of prednisone, theophylline, antihistamines, inhaled corticosteroids, B2 agonists and cromolyn is not contraindicated for . Plan [] Monitor symptoms every visit [] Serial growth scans and twice weekly NSTs if moderate persistent severe persistent [] PFTs if if severe persistent Sickle Cell Trait (Cms/Hcc) ([facility]) Jourdan has a history of sickle cell trait. Discussed risk of inheritance in fetus. Reports FOB negative for trait. Will request records from [facility] for carrier screening. Recommend urine culture every trimester. Plan: [] Follow-up records from [facility] [] Urine culture every trimester [x] 1st trimester [] 2nd trimester [] 3rd trimester Pre-Existing Type 2 Diabetes Mellitus During in Second Trimester History Diagnosed age 24 History of DKA? no Last hemoglobin A1C: 6.6% on 09/14/24 Pre- regimen: none (dx this ) Pre- weight: 97 kg Counseling Reviewed with patient that type 2 diabetes is the most common form of pregestational diabetes and is characterized by peripheral insulin resistance. is generally a state of increased insulin resistance, the one exception being late first trimester when relatively higher levels of estrogen may enhance insulin sensitivity and increase the maternal hypoglycemia, especially when associated with nausea and vomiting. As such, insulin requirements will likely change during and frequent monitoring throughout . This in combination with diabetic education, exercise, and diet control will be necessary to achieve optimal glycemic control. We reviewed that goal blood glucose values are generally fasting a premeal glucose of 95 mg/dL or less and 1 hour postprandial glucose of 140 mg/dL or less. We recommend checking blood sugar fasting, before each meal, and 1 hour after eating. The patient should also check urine ketones when their glucose level exceeds 200 mg/dL and should have glucagon available in case of hypoglycemic episodes. We also reviewed the increased maternal and risks associated with type 2 diabetes in . Discussed that major congenital anomalies (cardiac, neurologic and skeletal) are the leading cause of mortality in pregnancies complicated by diabetes and is directly related to hemoglobin A1C values. An A1c level of 10% is associated with a ~10% anomaly rate, and an A1c of 13% is associated with a ~20% anomaly rate. Other risks include large for gestational age or small for gestational age infants, delivery, and stillbirth. Maternal risks discussed include exacerbation of diabetes-related complications (particularly retinopathy and nephropathy), hypertensive disorders of , shoulder dystocia, and need for section. Also discussed that outcomes are best with optimal glycemic control. Lastly discussed that insulin drip will likely be required in labor. Plan - Current regimen: - Physician adjusting insulin dosage: MFM Counseling performed [] Diabetes education referred 10/02/24 [] Recommend weekly review of BG/insulin data to adjust insulin dosing - Sathish MFM to do via [facility] [] Glucagon prescribed - if medication [x] Referral to ophthalmology for comprehensive eye exam - has had exam in past year [] Baseline CMP, UPC - ordered 10/02/24 [] A1c qTrimester [x] ASA starting at 12 weeks gestation ordered 10/02/24 [] Baseline EKG [] Specialized anatomy ultrasound at 18-20 weeks - scheduled November 17 [] echocardiogram [] Serial growth scans starting at 24 weeks [] Twice weekly testing starting at 32 weeks pending medications [] insulin plan by 32 weeks [] Delivery at 39 0/7-39 6/7. 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 Would feel comfortable starting without a visit. She is allergic to metformin (diarrhea). Obesity Complicating in Second Trimester BMI: 44 Counseling Discussed with patient that obesity in is associated with increased risks. Women with obesity are at increased risks of spontaneous , stillbirth, macrosomia and congenital anomalies. During the antepartum period they are at increased risk of cardiac dysfunction, proteinuria, sleep apnea, GDM, and preeclampsia. During labor, women with obesity are at a higher risk for delivery, failed trial of labor, endometritis, wound complications, and venous thrombosis. Discussed with patient the recommended weight gain in , and with a BMI of 30 or greater we recommend a weight gain of 11-20lb Lastly discussed management. Would recommend early glucose screening, specialized anatomy ultrasound with serial growth assessment, and testing. Plan [x] Early screening for overt diabetes- T2DM [] Specialized anatomy ultrasound [] Serial growth ultrasounds q4 weeks starting at 24 weeks [] Weekly testing starting at 34 weeks given BMI of 40+ Supervision of High-Risk , Second Trimester [x] Co-management vs. [] Full [facility] Care; [] Red Team [x] Blue Team Referring Provider: Barb Wong [phone] [] or Medicare Insurance [x] Dating Criteria: LMP 06/28/24 with DERRELL 04/04/25 [x] Labs: Rh [O+], Ab [negative], Rubella [immune], HIV [non-reactive], HepBSAg [non-reactive], RPR [non-reactive], Hep C [non-reactive], Varicella [not done], GC/CT [negative/negative] [x] Aneuploidy: NIPT pending [] Carrier Screening: request from [place] [x] CBC/Hgb: 13.0/39.2/plt 295 [] Early 1hr GTT 09/14/24: GTT 222, A1c 6.6 [x] UCx: 09/14/24: negative [x] Pap: 04/23/22: NILM [] Flu Shot (Jul-Oct): [] COVID [] LD ASA (if indicated) [] EPDS [ ]; PNBHS referral (if indicated) 2nd Tri Labs: [] Anatomy ultrasound: [] CBC/1hr gtt at 24-28wks: [] Tdap (27-36wks): [] Rhogam at 28 wks (if Rh neg): 3rd Tri Labs: [] CBC/HIV/RPR/T&S: [] GBS: [] GC/CT (if indicated): [] testing: [] RSV Counseling [] MOD: [] Place of delivery: [] Last clinic visit SVE: [] IOL start agent: [] Epidural: [] Blood Products [] Consents signed: [] Stop ASA [] MOC: [] Method of feeding: [] Jira Administrator (specifically which provider): [] PP Depression Discussed: We have scheduled her to return with an office visit and anatomy ultrasound in early November. Thank you for the opportunity to be involved in the care of your patient. Should you have any further questions or concerns, please do not hesitate to call us. Sincerely, Jessica Zaman MD Fellow Division of Maternal- Medicine Department of Obstetrics and Gynecology [facility] 10/02/2024 Cosigned by Carmen Serrano MD at 10/02/2024 9:25 AM FOOD SAFETY MANAGER SAFETY MANAGER SAFETY MANAGER Associated attestation - Carmen Serrano MD - 10/02/2024 9:25 AM FOOD SAFETY MANAGER I have seen and examined the patient. I agree with the findings and plan of care as documented in the resident/fellow's note. Progress Notes - Routine Pre - 09/19/2024 - GA:11w6d 09/19/2024 - w6d - Bhaskar Gonzalez MD Return OB Visit 24 y.o. at 11w6d Denies bleeding or significant cramping. No other questions or concerns today. Objective BP 112/76 Ht 147.3 cm (4' 9.99 ) Wt 213 lb 3.2 oz (96.7 kg) LMP 06/28/2024 BMI 44.57 kg/m TWG: -12.8 oz (-0.363 kg) BSUS SLIUP Assessment and Plan Patient is scheduled with MFM on 10/02 Return here in 4 weeks Surveillance of EDC by LMP = 8 week US O+/I/-/-, HIV and RPR NR Genetics: NIPT drawn 09/14 Anatomy: 20 weeks to be performed with MFM GTT: 26-28 weeks 3rd trim CBC/HIV/RPR Tdap: 27+ weeks GBS: 36 weeks, or sooner if early delivery indicated COVID Vaccine: Social Barriers: none Mode of feeding: Method of contraception: Delivery Planning: TBD [place] Asthma: Albuterol inhaler prn T2DM? Early GCT 222 MFM referral - 10/02 Morbid Obesity initial BMI 44.31 early glucose ordered testing @ 34 wks Bhaskar Gonzalez MD SAFETY MANAGER Progress Notes - Abstract - 09/18/2024 - GA:w5d 09/18/2024 - d - Willow Edwards RMA Current OB records are in Dr. Scribbles. PCP records are also in Dr. Scribbles. Most recent visit was 07/26/24. 2020 delivery note is under media tab dated 01/13/20 and labeled procedure report. SAFETY MANAGER Progress Notes - Clinical [place] pport - 09/14/2024 - GA:11w09/14/2024 - - Valeria Mota RN Panorama kit brought to the lab Progress Notes - Clinical [place] pport - 08/24/2024 - GA:8w1d 08/24/2024 - w - Valeria Cummins, RN Patient is doing well today. No issues to report. Dating US completed in office. DERRELL reviewed with the pt. PNL ordered today. Early glucose ordered due to BMI. T2DM? NIPT discussed with the pt. Anatomy US to be completed with MFM. She will let us know if she wants to complete at 11 weeks. Pap is up to date. STI urine to be sent to the lab. Tdap and flu shot recommendations reviewed with the pt. OB call schedule reviewed with the pt. NOB packet reviewed with the pt and questions were answered Progress Notes - Initial Pre - 08/24/2024 - GA:8w1d 08/24/2024 - 8w1d - Austin Wong NP Initial OB Visit Jourdan Raman is a 24 y.o. at 8w1d by L=1T US who desires establishment of care for her . Reports having persistent nausea but denies vomiting Denies VB, LOF, abd cramping or other acute concerns at this time Her is currently complicated by: #Morbid Obesity #T2DM #IL Asthma #Hx LEONILA #ZAINAB Patient Active Problem List Diagnosis Allergic rhinitis Hypertrophy of nasal turbinates Idiopathic hypersomnia Mild persistent asthma without complication Vocal cord dysfunction Gastroesophageal reflux disease Narcolepsy Iron deficiency anemia, unspecified Pure hypercholesterolemia Obesity 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) Mild persistent asthma without complication Primary snoring Abnormal ultrasound Obesity affecting , antepartum Morning sickness? yes movement? no Leakage of fluid? no Vaginal bleeding? no Contractions? no Planned ? yes Desired ? yes Taking ? yes Taking other meds not yet cleared by OB? no Cats in household? no Job with chemical exposure? no Xrays in ? no Dating: Working Criteria: L=1T US Patient's last menstrual period was 06/28/2024. =>, DERRELL: 04/04/2025 US Date: 08/24/2024, Gest Age 8w0d => DERRELL 04/05/2025 Indication: dating number: 1 GA by LMP 06.28.24 8w1d DERRELL 04.04. GA by today's exam 8w0d DERRELL 04.05.25 CRL 1.59 cm FHR 164 bpm Bulk Plant Agent comments: Right ovary WNL, left ovary simple cyst 2.79 x 2.26 x 2.29. Nabothian cyst 0.78 x 0.64 x 0.74 cm Obstetric History: OB History Para Term AB Living 2 1 1 1 SAB IAB Ectopic Multiple Live Births 1 # Outcome Date GA Lbr Dane/2nd Weight Sex Type Anes PTL Lv 2 Current 1 Term 01/13/20 39w0d 3.26 kg (7 lb 3 oz) M Vag-Spont EPI N ADARSH Genetic History: [-] Mother's Age > 34 years no [-] Sickle Cell Disease or Trait () [-] Thalasemia (Malawian, Argentine, Medit or ; MCV <80) [-] Jb Sachs Disease (Mormonism, Cajun, St [place]ian [place] Zealander) [-] Down's Syndrome [-] Neural Tube Defects (Meningomyelocele, Spina Bifida or Anencephaly) [-] Other Developmental Delay [-] Cystic Fibrosis [-] Georges's Chorea [-] Muscular Dystrophy [-] Hemophilia [-] Other Heritable condition Medical History: Past Medical History: Diagnosis Date Anemia Asthma GERD (gastroesophageal reflux disease) Narcolepsy 2015 Current Outpatient Medications: pantoprazole DR (PROTONIX) 40 mg EC tablet, Take 1 tablet (40 mg total) by mouth daily, Disp: 90 tablet, Rfl: 1 vit 71-bbmx-naahf-dha 27mg iron- 800 mcg-250 mg capsule, Take by mouth, Disp: , Rfl: albuterol HFA (PROVENTIL HFA,VENTOLIN HFA,PROAIR HFA) 90 mcg/actuation inhaler, Inhale 2 puffs every 6 (six) hours as needed for wheezing or shortness of breath (Patient not taking: Reported on 08/24/2024), Disp: , Rfl: metFORMIN XR (GLUCOPHAGE XR) 500 mg 24 hr tablet, Take 1 tablet (500 mg total) by mouth daily with breakfast (Patient not taking: Reported on 08/24/2024), Disp: 30 tablet, Rfl: 2 Allergies Allergen Reactions Metformin Diarrhea Surgical History: Past Surgical History: Procedure Laterality Date WISDOM TOOTH EXTRACTION Family History: Family History Problem Relation Age of Onset Diabetes Mother Hypertension Mother No Known Problems Father No Known Problems Sister No Known Problems Brother No Known Problems Son Cervical cancer Maternal Grandmother Colon cancer Maternal Grandfather Hypertension Maternal Grandfather Breast cancer Paternal Grandmother Hypertension Paternal Grandfather No Known Problems Sister No Known Problems Sister No Known Problems Sister No Known Problems Brother Social History: Social History Tobacco Use Smoking status: Never Smokeless tobacco: Never Substance and Sexual Activity Drug use: Not Currently Types: Marijuana Sexual activity: Yes Partners: Male control/protection: None Alcohol Use: Not At Risk (04/17/2024) AUDIT-C Frequency of Alcohol Consumption: Monthly or less Average Number of Drinks: 1 or 2 Frequency of Binge Drinking: Never Physical Exam: Vitals: BP 116/78 Ht 147.3 cm (4' 10 ) Wt 214 lb (97.1 kg) LMP 06/28/2024 BMI 44.73 kg/m General: Well appearing, pleasant female in NAD Cardiovascular: HR and BP WNL Respiratory: Unlabored breathing, no SOB with conversation noted Abdomen: Soft, non-tender to palpation Extremities: Warm and well perfused, nontender, no edema Pelvic: Deferred, Pap up to date; NILM in 04/2022 Assessment and Plan: Reviewed US and DERRELL Discussed genetic testing via [facility] vs Amnio and carrier screening Discussed group approach to PNC, simulation engineer vs MD management options Encouraged to complete labs, reviewed lab locations Discussed having anatomy US with MFM d/t BMI Discussed Flu vaccine Rx for Reglan and Iron supplement sent Reviewed bleeding/SAB precautions and location of FLORA RTC in 4 weeks for TRINA appointment Surveillance of EDC by L=1T US @ 8w1d Labs: ordered Genetics: planning for NIPT at 11 weeks Anatomy: 20 weeks to be performed with MFM GTT: 26-28 weeks 3rd trim CBC/HIV/RPR Tdap: 27+ weeks GBS: 36 weeks, or sooner if early delivery indicated COVID Vaccine: Social Barriers: none Mode of feeding: Method of contraception: Delivery Planning: TBD Morbid Obesity: initial BMI 44.31, early glucose ordered [place] Asthma: Albuterol inhaler prn T2DM? Barb Wong NP Cosigned by Bhaskar Gonzalez MD at 08/25/2024 9:47 AM CDT Last Filed Vital Signs Vital Sign Reading [...] 03/26/2025 9:53 AM CDT Plan of Treatment Health Maintenance Due Date Last Done Comments Cervical Cancer Screening 1999 Foot Exam 1999 Pneumococcal vaccine <65 (1 of 1 - PPSV23) 2005 03/04/2001, 10/21/2000 Covid-19 Vaccine (2023-2 5 season) 2024 11/28/2021, 10/31/2021 Regular Well Visit/Exam 18-64 09/21/2024, 04/23/2022, 02/03/2021 Albumin Creatinine Ratio, Urine 04/17/2025 , 10/27/2023 Lipid Panel 04/17/2025 04/17/2024, 10/15, 11/01/2021, Additional history exists Dilated Eye Exam 04/24/2025 04/24/2024 Hemoglobin A1C 05/24/2025 11/24/2024, 010 01/2025, 09/14/2024, Additional history exists Influenza Vaccine (Season Ended) 2025 08/18/2023, 01/14/2020, 08/12/2018, Additional history exists eGFR 10/02/2025 10/02/2024, 0 01/2024, 10/27/2023, Additional history exists Depression Screening 04/01/2026 04/01/2025, 03/29/2025, 03/29/2025, Additional history exists DTaP/Tdap/Td Vaccine (8 - Td or Tdap) 01/09/2035 01/09/2025, 03/23/2011, 04/05/2004, Additional history exists Varicella Vaccines Completed 08/20/2008, 0 04/01/2007, 10/21/2000 HPV Vaccines Completed 07/07/2012, 04/01/2012, 01/05/2012 Hepatitis B Screening Completed 03/10/2023 , 06/07/2000, 06/07/2000, Additional history exists Hepatitis C Screening Completed 09/14/2024 Procedures Procedure Name Priority Date/Time Associated Diagnosis Comments GLUCOSE, FASTING Routine 03/31/2025 8:08 AM CDT CBC WITHOUT DIFFERENTIAL Routine 03/31/2025 8:08 AM CDT POCT GLUCOSE DEVICE Routine 03/31/2025 5 :36 AM CDT POCT GLUCOSE DEVICE Routine 03/30/2025 1 :26 PM CDT POCT GLUCOSE DEVICE Routine 03/30/2025 9 :25 AM CDT ME AN PROCEDURE PLACEHOLDER Routine 03/30/2025 8:19 AM [...] Read Routine (OP Routine) 01/19/2025 10:23 AM FOOD SAFETY MANAGER Obesity affecting in first trimester, unspecified obesity type Pre-existing type 2 diabetes mellitus during in second trimester CBC WITHOUT DIFFERENTIAL Routine 01/09/2025 9:06 AM FOOD SAFETY MANAGER Third trimester HIV 1/2 ANTIBODY PLUS P24 ANTIGEN Routine 01/09/2025 9:06 AM FOOD SAFETY MANAGER Third trimester RPR Routine 01/09/2025 9:06 AM FOOD SAFETY MANAGER Third trimester HEMOGLOBIN A1C Routine 11/24/2024 12:07 PM FOOD SAFETY MANAGER Pre-existing type 2 diabetes mellitus during in second trimester EGFR Routine 10/02/2024 9:29 AM FOOD SAFETY MANAGER Supervision of high-risk , second trimester HEPATITIS [...] - 9.90 K/cumm Comment:Testing performed by : [address] [address] Hgb 9.2(L) 11.9 - 15.5 g/dL BETHANY Comment:Testing performed by : [address] [address] Hct 29.2(L) 35.6 - 45.5 % BETHANY Comment:Testing performed by : [address] [address] Plt 236 150 - 400 K/cumm BETHANY Comment:Testing performed by : [address] [address] MPV 10.6 9.1 - 12.3 fL BETHANY TELLEZ Comment:Testing performed by : [address] [address] RBC 4.09 3.90 - 5.20 M/cumm BETHANY TELLEZ Comment:Testing performed by : [address] [address] MCV 71.4(L) 81.3 - 96.4 fL BETHANY Comment:Testing performed by : [address] [address] MCH 22.5(L) 27.1 - 33.3 pg BETHAYN TELLEZ Comment:Testing performed by : [address] [address] MCHC 31.5(L) 32.3 - 35.7 g/dL BETHANY Comment:Testing performed by : [address] [address] RDW CV 18.6(H) 11.1 - 14.9 % BETHANY Comment:Testing performed by : [address] [address] RDW SD 46.9 35.7 - 48.1 fL BETHANY Comment:Testing performed by : [address] [address] NRBC abs 0.02(H) 0.00 - 0.01 K/cumm BETHANY Comment:Testing performed by : [address] [address] Blood 03/31/2025 8:08 AM CDT 03/31/2025 9:37 AM CDT Marisol Aguirre [facility] LAB BLOOD ORDERABLES Final Re sult [facility] [address] [facility] Department of [facility] [place], [place] [id number] * (ABNORMAL) Glucose, fasting (03/31/2025 8:08 AM CDT) [facility] Glucose, fasting 127(H) 70 - 99 mg/dL Comment:Testing performed by : [address] [address] Blood 03/31/2025 8:08 AM CDT 03/31/2025 9:37 AM CDT Marisol Aguirre CNM LAB BLOOD ORDERABLES Final Re sult Performing Organization Address [facility] Co de Phone Number [address] [place] [address] * POCT glucose (03/31/2025 5:36 AM CDT) Glucose, POC 97 70 - 199 mg/dL Comment:Testing performed by : [address] [address] Glucose comment 1 RN/MD Notified [facility] Comment:Testing performed by : [address] [address] Blood 03/31/2025 5:36 AM CDT 03/31/2025 5:36 AM CDT us Bhaskar Gonzalez MD LAB POCT ORDERABLES - JAKOB CE Final Result Performing Organization Address [facility] Co de Phone Number [address] [place] [address] * POCT glucose (03/30/2025 1:26 PM CDT) Glucose, POC 99 70 - 199 mg/dL Comment:Testing performed by : [address] [address] Blood 03/30/2025 1:26 PM CDT 03/30/2025 1:26 PM CDT Bhaskar Gonzalez MD LAB POCT ORDERABLES - JAKOB CE Final Result Performing Organization Address City/[facility]/ZIP Co de Phone Number [address] [place] [address] * POCT glucose (03/30/2025 9:25 AM CDT) Glucose, POC 86 70 - 199 mg/dL Comment:Testing performed by : [address] [address] Blood 03/30/2025 9:25 AM CDT 03/30/2025 9:25 AM CDT Bhaskar Gonzalez MD LAB POCT ORDERABLES - JAKOB CE Final Result BETHANY [address] [facility] [place] [id number] * ME AN PROCEDURE PLACEHOLDER (03/30/2025 8:19 AM CDT) Narrative Chel Chambers CRNA - 03/30/2025 8:19 AM CDT Chel Chambers CRNA 03/30/2025 8:21 AM CSE Block Patient location during procedure: L&D Start time: 03/30/2025 7:50 AM End time: 03/30/2025 8:20 AM Reason for block: labor analgesia Staffing: Placed by: PERL PROGRAMMER: Chel Chambers CRNA Preprocedure Prep: Preprocedure checklist: [...] patient tolerated procedure well with no complications us Pal Abebe MD ANESTHESIA ORDERABLES Fi nal Result * POCT glucose (03/30/2025 7:28 AM CDT) Glucose, POC 84 70 - 199 mg/dL Comment:Testing performed by : [address] [address] Blood 03/30/2025 7:28 AM CDT 03/30/2025 7:28 AM CDT Bhaskar Gonzalez MD LAB POCT ORDERABLES - JAKOB CE Final Result Performing Organization Address [facility] de Phone Number BETHANY [address] [address] * POCT glucose (03/30/2025 5:34 AM CDT) Glucose, POC 94 70 - 199 mg/dL Comment:Testing performed by : [address] [address] Glucose comment 1 Use This Result BETHANY Comment:Testing performed by : [address] [address] Blood 03/30/2025 5:34 AM CDT 03/30/2025 5:34 AM CDT Bhaskar Gonzalez MD LAB POCT ORDERABLES - JAKOB CE Final Result Performing Organization Address [facility] de Phone Number [address] [address] * POCT glucose (03/30/2025 3:32 AM CDT) Glucose, POC 93 70 - 199 mg/dL Comment:Testing performed by : [address] [address] Glucose comment 1 RN/MD Notified BETHANY Comment:Testing performed by : [address] [address] Blood 03/30/2025 3:32 AM CDT 03/30/2025 3:32 AM CDT us Bhaskar Gonzalez MD LAB POCT ORDERABLES - JAKOB CE Final Result Performing Organization Address [facility] Co de Phone Number BETAHNY [address] [address] * POCT glucose (03/30/2025 1:38 AM CDT) Glucose, POC 80 70 - 199 mg/dL Comment:Testing performed by : [address] [address] Glucose comment 1 Use This Result [facility] Comment:Testing performed by : [address] [address] Blood 03/30/2025 1:38 AM CDT 03/30/2025 1:38 AM CDT us Bhaskar Gonzalez MD LAB POCT ORDERABLES - JAKOB CE Final Result Performing Organization Address [facility] de Phone Number TODD[address] [address] * POCT glucose (03/29/2025 9:21 PM CDT) Glucose, POC 90 70 - 199 mg/dL Comment:Testing performed by : [address] [address] Glucose comment 1 Use This Result BETHANY Comment:Testing performed by : [address] [address] Blood 03/29/2025 9:21 PM CDT 03/29/2025 9:21 PM CDT Bhaskar Gonzalez MD LAB POCT ORDERABLES - JAKOB CE Final Result Performing Organization Address City/[facility] Co de Phone Number [address] [address] * ABO/Rh (03/29/2025 8:57 PM CDT) ABO/Rh O Positive Comment:Testing performed by : [address] [address] Blood 03/29/2025 8:57 PM CDT 03/29/2025 9:15 PM CDT Narrative BETHANY - 03/29/2025 10:00 PM CDT Has the patient had Daratumumab or Isatuximab in the past 6 months?->Unknown Brionna Monsalve MD LAB BLOOD BANK TEST ORDER TRACY Final Result Performing Organization Address [facility] Co de Phone Number [address] [address] * RPR Blood (03/29/2025 8:57 PM CDT) Pathologist [facility] [place] RPR Nonreactive Nonreactive Comment:Testing performed by : [facility], [address] [place]., [address] Blood 03/29/2025 8:57 PM CDT 03/29/2025 11:17 PM CDT Brionna Monsalve MD LAB MICROBIOLOGY - GENERA L ORDERABLES Final Result Performing Organization Address [facility] Co de Phone Number [address] [address] * (ABNORMAL) CBC without differential (03/29/2025 8:57 PM CDT) Pathologist [facility] [place] WBC 10.38(H) 3.80 - 9.90 K/cumm Comment:Testing performed by : [address] [address] Hgb 10.2(L) 11.9 - 15.5 g/dL BETHANY TELLEZ Comment:Testing performed by : [address] [address] Hct 31.5(L) 35.6 - 45.5 % BETHANY TELLEZ Comment:Testing performed by : [address] [address] Plt 270 150 - 400 K/cumm BETHANY TELLEZ Comment:Testing performed by : [address] [address] MPV 9.8 9.1 - 12.3 fL BETHANY TELLEZ Comment:Testing performed by : [address] [address] RBC 4.53 3.90 - 5.20 M/cumm BETHANY TELLEZ Comment:Testing performed by : [address] [address] MCV 69.5(L) 81.3 - 96.4 fL BETHANY Comment:Testing performed by : [address] [address] MCH 22.5(L) 27.1 - 33.3 pg BETHANY TELLEZ Comment:Testing performed by : [address] [address] MCHC 32.4 32.3 - 35.7 g/dL BETHANY Comment:Testing performed by : [address] [address] RDW CV 18.6(H) 11.1 - 14.9 % BETHANY Comment:Testing performed by : [address] [address] RDW SD 45.4 35.7 - 48.1 fL BETHANY Comment:Testing performed by : [address] [address] NRBC abs 0.08(H) 0.00 - 0.01 K/cumm BETHANY Comment:Testing performed by : [address] [address] Blood 03/29/2025 8:57 PM CDT 03/29/2025 9:15 PM CDT Brionna Monsalve MD LAB BLOOD ORDERABLES Veronika tafoya Result BETHANY TELLEZ [facility] [place] [address] * Antibody screen (03/29/2025 8:57 PM CDT) [place], indirect, Gel Interpretation Negative ABSC Comment:Testing performed by : [facility], [address] [place] [address], [place]., [address] Blood 03/29/2025 8:57 PM CDT 03/29/2025 9:15 PM CDT Narrative BETHANY - 03/29/2025 10:00 PM CDT Has the patient had Daratumumab or Isatuximab in the past 6 months?->Unknown Brionna Monsalve MD LAB BLOOD BANK TEST ORDER TRACY Final Result BETHANY [address] [facility] [place] [address] * nonstress test - (03/16/2025 12:36 PM CDT) NST Locations [facility] NST Baseline 140 FHR Variabilities Moderate (6-25bpm) Minimal (<5bpm), Moderate (6-25bpm), Marked (>25bpm) Decelerations None None, Variable, Early, Variable/Ea rly, Other (comment) Uterine Activity No Assessment Reactive Reactive NST Read by OBMD Codi Ramirez MD OB GYNE ORDERABLES Final Result * US Ob Follow Up (03/16/2025 9:57 AM CDT) Pathologist [facility] [place] Fetus# Fetus1 VIEWPOINT Estimated Weight 3,286 g&grams [...] MFM visit to follow. us Fabiola Agudelo LOOM CHANGEOVER OPERATOR IMG OB US PROCEDURE S Final Result * Group B streptococcus PCR Vaginal/Rectal (03/07/2025 9:18 AM CDT) Strep group B PCR Negative Negative Comment: Interpretive Data Testing performed by [facility]. This test is performed using the OffScale Xpert GBS LB XC assay. This is a real-time PCR assay intended for the qualitative detection of nucleic acid from Streptococcus agalactiae (GBS). This assay has been cleared by the [place] Food and Drug administration. The performance characteristics have been verified by the [facility]. Penicillin is the drug of choice for Beta strep infections. A negative result does not rule out the possibility of GBS colonization. False negative results may occur if the organism is present at levels below the analytical limit of detection. Current interpretive data was last reviewed 2024 Testing performed by: [facility], [address] [place] [address]., [id number] Vaginal/Rectal 03/07/2025 9: 18 AM CDT 03/07/2025 4:02 PM CDT Narrative BETHANY - 03/08/2025 4:40 PM CDT Culture Type:->Vaginal/Anal Drag Is patient allergic to penicillin?->No us Bhaskar Gonzalez MD LAB MICROBIOLOGY - GENERAL ORDERABLES Final Result BETHANY [address] [facility] [place] [address] * US Biophysical Profile WO [...] otherabnormalities within the limits of today's exam. us Jax Carver MD IMG OB US PROCEDURES Fin al Result * Urine culture Urine, clean voided (02/23/2025 1:53 PM CDT) Report Final Report: Less than 100,000 colonies/mL (clinically insignificant growth based on current clinical standards) Comment:Testing performed by : [facility], [address] [place]., [address] Organism (CLINICALLY INSIGNIFICANT GROWTH BETHANY TELLEZ Urine, clean voided 02/23/2025 1:53 PM CDT 02/23/2025 7:55 PM CDT Narrative BETHANY - 02/24/2025 8:43 PM CDT Testing performed by [facility] Micro[facility] Laboratory ([phone]) us Alla Oh MD LAB MICROBIOLOGY - GENERAL ORDERABLES Final Result BETHANY TELLEZ [address] [facility] [place] [address] * US Ob Follow Up (02/16/2025 9:58 [...] motion, body motion, tone andamniotic fluid volume. Result [facility] Fabiola Agudelo LOOM CHANGEOVER OPERATOR IMG OB US PROCEDURE S Final Result * US Ob Follow Up (01/19/2025 10:23 AM FOOD SAFETY MANAGER) Fetus# Fetus1 VIEWPOINT Estimated Weight 1,405 g&grams VIEWPOINT Placenta Details posterior, Previa-no VIEWPOINT Presentation Vertex VIEWPOINT Anatomical Region Laterality Modality Abdomen N/A Ultrasound 01/19/2025 10:2 6 AM FOOD SAFETY MANAGER Impressions 01/19/2025 11:14 AM FOOD SAFETY MANAGER 29w 2d IUP for evaluation of growth - AGA growth pattern, EFW 45%. Vertex presentation. Normal BRITTNEY, 11.9 cm. Narrative Procedure Note Roro Zaidi MD - 01/19/2025 IMPRESSION: 29w 2d IUP for evaluation of growth - AGA growth pattern, EFW 45%.Vertex presentation. Normal BRITTNEY, 11.9 cm. Fabiola Agudelo LOOM CHANGEOVER OPERATOR IM OB US PROCEDURE S Final Result * HIV 1/2 Antibody plus p24 Antigen Blood (01/09/2025 9:06 AM FOOD SAFETY MANAGER) HIV 1/2 ab + p24 ag Nonreactive Nonreactive Comment:Nonreactive for HIV- 1 antigen and HIV-1/HIV-2 antibodies. No laboratory evidence of HIV infection. If acute HIV infection is suspected, consider testing for HIV-1 RNA. Current interpretive data was last revised on 22. Blood 01/09/2025 9:06 AM FOOD SAFETY MANAGER 01/09/2025 12:43 PM FOOD SAFETY MANAGER Barb Wong LOOM CHANGEOVER OPERATOR LAB MICROBIOLOGY - GENERAL O RDERABLES Final Result Performing Organization Address City/[facility] Co de Phone Number [address] [place] [address] * RPR Blood (01/09/2025 9:06 AM FOOD SAFETY MANAGER) Pathologist [facility] [place] RPR Nonreactive Nonreactive Comment:Testing performed by : [facility], [address] [place] [address]., [id number] Blood 01/09/2025 9:06 AM FOOD SAFETY MANAGER 01/09/2025 1:27 PM FOOD SAFETY MANAGER Barb Wong LOOM CHANGEOVER OPERATOR LAB MICROBIOLOGY - GENERAL O RDERABLES Final Result Performing Organization Address [facility] de Phone Number [address] [address] * (ABNORMAL) CBC without differential (01/09/2025 9:06 AM FOOD SAFETY MANAGER) WBC 11.6(H) 3.8 - 9.9 K/cumm Comment:Testing performed by : [address] [address] Hgb 10.8(L) 11.9 - 15.5 g/dL BETHANY TELLEZ Comment:Testing performed by : [address] [address] Hct 33.9(L) 35.6 - 45.5 % BETHANY TELLEZ Comment:Testing performed by : [address] [address] Plt 271 150 - 400 K/cumm BETHANY TELLEZ Comment:Testing performed by : [address] [address] MPV 10.2 9.1 - 12.3 fL BETHANY TELLEZ Comment:Testing performed by : [address] [address] RBC 4.41 3.90 - 5.20 M/cumm BETHANY TELLEZ Comment:Testing performed by : [address] [address] MCV 76.9(L) 81.3 - 96.4 fL BETHANY Comment:Testing performed by : [address] [address] MCH 24.5(L) 27.1 - 33.3 pg BETHANY Comment:Testing performed by : [address] [address] MCHC 31.9(L) 32.3 - 35.7 g/dL BETHANY Comment:Testing performed by : [address] [address] RDW CV 16.0(H) 11.1 - 14.9 % BETHANY Comment:Testing performed by : [address] [address] RDW SD 44.4 35.7 - 48.1 fL BETHANY Comment:Testing performed by : [address] [address] NRBC abs 0.04(H) 0.00 - 0.01 K/cumm BETHANY Comment:Testing performed by : [address] [address] Blood 01/09/2025 9:06 AM FOOD SAFETY MANAGER 01/09/2025 10:38 AM FOOD SAFETY MANAGER us Barb Wong LOOM CHANGEOVER OPERATOR LAB BLOOD ORDERABLES Final R esult TODDMARCE [address] [facility] Department of Laboratories [place], [place] [id number] * (ABNORMAL) Hemoglobin A1c (11/24/2024 12:07 PM FOOD SAFETY MANAGER) Hgb A1C 5.7(H) 4.0 - 5.6 % Estimated Average Glucose 117 mg/dL [facility] Comment: The ADA recommends reporting an estimated Average Glucose (eAG) with all Hemoglobin A1c results using the equation derived from a study of 507 normal and diabetic adults. Minority populations were underrepresented and children were not included. (Diabetes Care 31:0749-5127, 2008). The eAG is not equivalent to a fasting glucose. Blood 11/24/2024 12:0 7 PM FOOD SAFETY MANAGER 11/24/2024 12:28 PM FOOD SAFETY MANAGER us Fabiola Agudelo NP LAB BLOOD ORDERABLE S Final Result [facility] [address] [place] [address] * eGFR (10/02/2024 9:29 AM FOOD SAFETY MANAGER) eGFR >90 >=60 mL/min/1. 73 m2 Comment: [...] of Race in Diagnosing Kidney Disease, JASN 202). The CKD-EPI equation should not be used for patients with unstable renal function and has not been validated in children and those over 70. Current interpretive data was last reviewed 2021. Blood 10/02/2024 9:29 AM FOOD SAFETY MANAGER 10/02/2024 10:39 AM FOOD SAFETY MANAGER us Carmen Serrano MD LAB BLOOD ORDERABLES Final R esult BETHANY [facility] Department [place] [address] * Hepatitis C antibody Blood (09/14/2024 8:58 AM CDT) Hep C Ab Nonreactive Nonreactive Comment: Antibodies [...] CDT 09/14/2024 12:44 PM CDT Barb Wong LOOM CHANGEOVER OPERATOR LAB MICROBIOLOGY - GENERAL O RDERABLES Final Result Performing Organization Address City/[facility]/ZIP Co de Phone Number BETHANY [address] [facility] [place] [address] * Diabetic Eye Exam (04/24/2024) Historical Provider HEALTH MAINTENANCE Final Result * Albumin Creatinine Ratio, Urine (04/17/2024 8:18 AM CDT) Albumin Ur <12.0 mg/L Comment: Interpretive Data No reference range established. Current interpretive data was last revised 2019. Creatinine Ur 218.0 mg/dL BETHANY TELLEZ Comment: Interpretive Data No reference range established. Current interpretive data was last revised 2019. Albumin Creatinine Ratio, Ur <6 1 - 29 mg/g BETHANY TELLEZ Urine 04/17/2024 8:18 AM CDT 04/17/2024 12:30 PM CDT us Mayco CASILLAS LAB URINE ORDERABLES Final Resu lt BETHANY [address] [facility] [place] [address] * (ABNORMAL) Lipid panel (04/17/2024 8:18 AM [...] on 2018. HDL 48 >=40 mg/dL BETHANY Comment: Interpretive Data Ages < [...] LAB BLOOD ORDERABLES Final Resu lt BETHANY [address] [facility] [place] [address] from Last 3 Months or Most Recently Relevant to Health Maintenance Insurance [employer] OPEN ACCESS [employer] OPEN ACCESS Advance Directives For more information, please contact: [phone] * Full Code (Latest Code Status on File) Date Activated Date Inactivated Comments 03/30/2025 3:49 PM 04/01/2025 5:04 PM * Full Code Date Activated Date Inactivated Comments 03/29/2025 8:43 PM 03/30/2025 3:49 PM Full CPR in case of cardiopulmonary arrest Care Teams Janitor Head Relationship Specialty Start Date End Date Mayco Harmon PA PCP - General Family Medicine 08/12/22 Marisol Aguirre CNM [address] [place] [address] Post Acute Care Registered Nurse Obstetrics and Gynecology 03/31/25
--- OUTSIDE RECORDS SUMMARY | 2025-04-06 14:21 | XMS_ITS | Encounter Summary ---
Author Organization [facility] Healthcare Address [address] [place] [address] Care Team Providers Care Diabetes Trainer Name Role Phone Mayco Harmon Primary Care Provider [phone] Marisol Aguirre CNGail Unavailable Reason for Visit * Reason Onset Date Comments Symptom Based Call 04/06/2025 Encounter Details Date Type Department Care Team (Late st Contact Info) Description 04/06/2025 Telephone [facility] Medical [facility] Family Medicine at [address] [place] [address] Mayco Harmon PA [address] [place] [address] Symptom Based Call Social History Tobacco Use Types Packs/Day Years [...] Never 11/17/2024 Overall Financial Resource Strain (CARDIA) Noemie r Date Recorded How hard is it [...] things needed for daily living? No 03/29/2025 [place] Depression Scale Answer Date Recorded [place] Depression Scale Total 0 04/01/2025 The thought [...] any time in the past 12 m [facility], were you homeless or living in a usp (including now)? No 03/29/2025 Personal Safety Answer Date Recorded Have you ever been in or are you currently in a harmful physical or emotional relationship or is someone making you feel afraid or unsafe? Denies 03/29/2025 Comments No Sex and Gender Information Value Date Recorded Sex Assigned at Not on file Legal Sex Female 7:01 PM HUMAN RELATIONS MANAGER Gender Identity Not on file Sexual Orientation Not on file documented as of this encounter Miscellaneous Notes * Telephone Encounter - Isai Lepe - 04/06/2025 1:15 PM CDT Symptom Based Call Chief Complaint(s): Left-sided Facial Paralysis Duration: today What type of symptom(s) is the patient experiencing? 911 Has the patient agreed to call 911? Yes Additional Comments: Patient transferred to the AL reporting her tongue felt numb and she could notclose her left eye or move the left side of her mouth. TRACKMOBILE OPERATOR instructed patient to hang up and call 911, patient verbalized understanding and agreement. Does message need to be routed? Yes-FYI Only documented in this encounter Plan of Treatment Not on file documented as of this encounter Visit Diagnoses Not on filedocumented in this encounter Care Teams Diabetes Trainer Relationship Specialty Start Date End Date Mayco Harmon PA PCP - General Family Medicine 08/12/22 Marisol Aguirre CNM [address] [place] [address] E[employer] Helicopter Pilot Obstetrics and Gynecology 03/31/25 documented as of this encounter
[2025-04-06 14:24] LABS: Alanine Aminotransferase 21 U/L (6-35); Albumin Level 3.7 g/dL (3.5-5.1); Alkaline Phosphatase 135 U/L (38-126); Anion Gap 10 mmol/L (4-12); Aspartate Amino Transferase 29 U/L (14-36); Bilirubin,Total 0.5 mg/dL (0.2-1.3); Blood Urea Nitrogen 7 mg/dL (7-17); Calcium 8.8 mg/dL (8.4-10.2); Carbon Dioxide 23 mmol/L (22-30); Chloride 109 mmol/L (98-107); Estimated Glomerular Filt Rate > 60; Glucose 101 mg/dL (65-110); Potassium 3.7 mmol/L (3.4-5.0); Sodium 142 mmol/L (137-145)
[2025-04-06 14:26] LABS: Prothrombin Time 13.1 Seconds (11.1-14.7)
[2025-04-06 14:36] LABS: Troponin I < 0.012 ng/mL (0.000-0.034)
[2025-04-06 14:48] LABS: Anisocytosis 1+; Giant Platelets Present; Large Platelets Present; Platelet Estimate Increased (Adequate)
[2025-04-06 14:49] LABS: Hypochromasia 1+
[2025-04-06 14:51] LABS: Schistocytes None Seen
[2025-04-06] MEDS: ASPIRIN 325 MG TABLET PO (18:48)
== END 2025-04-06 19:00 | disposition short-term general hospital (02) ==
PROVIDERS: Emergency Provider Emergency Medicine; PCP Physician Assistant Medical
DX: R29.810 Facial weakness (principal); E11.9 Type 2 diabetes mellitus without complications
CPT/HCPCS: 36415; 70450; 70496; 70498; 71045; 80053; 84484; 85025; 85610; 85730; 93005; 99285; A9270; Q9967